=== PATIENT | female | born 1965 | race Caucasian/White ===

== ENCOUNTER → 2017-12-17 15:19 | Outpatient (REF) | payer BC, SELFPAY ==
--- NOTE | 2017-12-17 14:15 | ENDO_PTH ---
PATIENT: Ciara Sexton LOC: [facility] U#:[id number] AGE/SX: 59/F ROOM: RE12/17/[address]: Tremayne Eckert : 1965 BED: DIS: SPEC #: [id number] RECD: 12/17/17 17:44 STATUS: CORINE REQ #: [id number] YUAN: 12/17/17 14:[address]: Tremayne Eckert DEPT: Surgical Specimen RECD BY: Paola Emerson ENTERED: 12/17/17 17:44 SP TYPE: Endo OTHR DR: Joycelyn Garcia Sabine J Tissues: 1 - ENDOCERVICAL BX/CURRETTE Procedures: GROSS AND MICRO LEVEL 4 Comments: [id number]
--- NOTE | 2017-12-17 14:15 | PAPFT_PTH ---
PATIENT: Ciara Sexton LOC: [facility] U#:[id number] AGE/SX: 59/F ROOM: RE12/17/[address]: Tremayne Eckert : 1965 BED: DIS: SPEC #: [id number] RECD: 12/17/17 17:54 STATUS: CORINE REDelroy #: [id number] YUAN: 12/17/17 14:[address]: Tremayne Eckert DEPT: [facility] Cytology RECD BY: Paola Emerson ENTERED: 12/17/17 17:55 SP TYPE: PAPFT OTHR DR: Joycelyn Garcia Sabine J Tissues: 1 - CX/ENDOCX FOR PAP SMEARS Procedures: HPV DNA PROBE Comments: (HPV ONLY)
== END ==
LOC: LBN 15:19
PROVIDERS: PCP Nurse Practitioner Family; Visit Provider Obstetrics & Gynecology
DX: N85.8 Other specified noninflammatory disorders of uterus (principal); R87.610 Atypical squamous cells of undetermined significance on cytologic smear of cervix (ASC-US); Z11.51 Encounter for screening for human papillomavirus (HPV)
CPT/HCPCS: 88305; 87624

== ENCOUNTER 2018-05-20 08:39 | Outpatient (REF) | payer BC, SELFPAY ==
[2018-05-20 13:37] LABS: ALT 19 U/L (12-78); AST 12 U/L (15-37); Albumin 3.3 g/dL (3.4-5.0); Alkaline Phosphatase 62 U/L (46-116); Anion Gap 10.4 mmol/L (3-11); BUN 18 mg/dL (7-18); Bilirubin, Total 0.3 mg/dL (0.2-1.0); CO2 23.6 mmol/L (21.0-32.0); CREATININE 0.92 mg/dL (0.55-1.02); Calcium 8.3 mg/dL (8.5-10.1); Chloride 107 mmol/L (98-107); Cholesterol 157 mg/dL (50-200); Glucose 91 mg/dL (70-100); HDL Cholesterol 58 mg/dL (40-60); LDL CHOLESTEROL 89 mg/dL (<100); Potassium 4.4 mmol/L (3.5-5.1); Sodium 141 mmol/L (136-145); Triglyceride 53 mg/dL (30-150)
[2018-05-20 13:59] LABS: FREE T4 0.63 ng/dL (0.76-1.46)
== END 2018-05-20 08:59 ==
LOC: NCHCN 08:39
PROVIDERS: PCP Nurse Practitioner Family; Visit Provider Nurse Practitioner Family
DX: E03.9 Hypothyroidism, unspecified (principal); Z13.220 Encounter for screening for lipoid disorders; Z13.228 Encounter for screening for other metabolic disorders
CPT/HCPCS: 80053; 80061; 83721; 84439; 84443

== ENCOUNTER 2018-06-11 00:06 | Outpatient (CLI) | payer BC, SELFPAY ==
--- NOTE | 2018-06-11 09:00 | DI.MAMMO_ITS ---
SYMPTOM/DIAGNOSIS: SCREENING, PREVENTATIVE CARE, Z00.00 MAMMOGRAMS: Mammograms were interpreted according to the usual protocol including computer analysis with CAD system, tomosynthesis and C view imaging. Comparison is made with prior examinations. Breast density, Category C. No suspicious masses or microcalcifications are seen. There is no definite evidence of malignancy. IMPRESSION: Negative mammogram. Routine screening is recommended. Category 1. MQSA ASSESSMENT OF FINDINGS: Negative. Category 1. Patient will receive a letter notifying them of these results. Bi-RADS category C. The breasts are heterogeneously dense, which may obscure small masses.
== END 2018-06-11 00:26 ==
PROVIDERS: PCP Nurse Practitioner Family; Visit Provider Nurse Practitioner Family
DX: Z00.00 Encounter for general adult medical examination without abnormal findings (principal); Z12.31 Encounter for screening mammogram for malignant neoplasm of breast
CPT/HCPCS: 77063; 77067

== ENCOUNTER 2018-07-29 09:11 | Outpatient (REF) | payer BC, SELFPAY ==
[2018-07-29 13:39] LABS: TSH (W/Ref FT4) 0.09 uIU/mL (0.358-3.74)
[2018-07-29 13:56] LABS: FREE T4 0.83 ng/dL (0.76-1.46)
== END 2018-07-29 09:31 ==
LOC: NCHCN 09:11
PROVIDERS: PCP Nurse Practitioner Family; Visit Provider Nurse Practitioner Family
DX: E03.9 Hypothyroidism, unspecified (principal); M62.838 Other muscle spasm
CPT/HCPCS: 83735; 84439; 84443

== ENCOUNTER 2018-08-30 10:08 | Outpatient (REF) | payer BC, SELFPAY ==
--- NOTE | 2018-08-30 09:15 | PAPFT_PTH ---
PATIENT: Ciara Sexton LOC: [facility] U#:[id number] AGE/SX: 52/F ROOM: RE08/30/[address]: Nuha Cummings : 1965 BED: DIS: 08/30/2018 SPEC #: [id number] RECD: 08/30/18 12:56 STATUS: CORINE REDelroy #: [id number] YUAN: 08/30/18 09:[address]: Nuha Cummings DEPT: [facility] Cytology RECD BY: Paola Emerson Tissues: 1 - CX/ENDOCX FOR PAP SMEARS Procedures: PAP THIN PREP/UVM Screening HPV DNA PROBE Comments: [id number]
== END 2018-08-30 10:28 ==
LOC: NCHCN 10:08
PROVIDERS: PCP Nurse Practitioner Family; Visit Provider Nurse Practitioner Family
DX: Z00.00 Encounter for general adult medical examination without abnormal findings (principal); Z12.4 Encounter for screening for malignant neoplasm of cervix; Z11.51 Encounter for screening for human papillomavirus (HPV)
CPT/HCPCS: 88142; 87624

== ENCOUNTER 2019-06-16 09:59 | Day surgery (SDC) | payer BC, SELFPAY ==
--- NOTE | 2019-06-16 06:59 | W.COLOREPORT ---
Date of service: 06/16/19 Time of Service: 10:47 Colonoscopy Report Date of procedure: 06/16/19 Pre-op diagnosis general: Colon Cancer Screening Post-op diagnosis procedure note: other (Transverse polyps, internal and external hemorrhoids) Procedure: Colonoscopy with polypectomy by cold forceps Surgeon: Marlene Puente Anesthesia proc note operative: other (General/ ASA /) Complications: None Disposition: same day Indications: The patient is here for Colonoscopy pre-op. He has no family history of colon cancer. He has not had any bowel habit changes. -Discussed colonoscopy bowel prep as well as the procedure. Discussed possible complications of the procedure to include bleeding, pain, perforation, missed small lesion/polyp, sore throat, aspiration and adverse reaction to the medications. Questions were answered to patient?s satisfaction. No guarantees were implied or given. Prep: Miralax/Dulcolax Procedure Start Time: 47 Procedure End Time: 11:13 Retraction Time: 17 minutes Findings: Adenomatous Transverse colon polyp Internal and external hemorrhoids Procedure Description: After informed consent was obtained the patient was taken to the procedure room and placed in a left decubitous position. Monitors were applied and a time out was done. The patients name, date of , procedure, allergies to medications and metal in their body was reviewed. The patient was then sedated. Once sedated and comfortable a rectal exam was done. External exam revealed small external hemorrhoids. Internal exam revealed a normal sphincter tone and no palpable masses. The scope was then introduced and retro-flexed. Grade 1 and 2 internal hemorrhoids were identified. The scope was then advanced to the cecum without difficulty. The TI and appendiceal orifice were identified. The prep was good. The scope was then slowly retracted over 17 minutes back into the rectum. Polyps were removed with cold forceps in the transverse colon. There were no diverticuli. The scope was removed and the patient was woken up and taken back to Same day surgery in stable condition. The patient tolerated the procedure well and there were no immediate complications. Follow up: The patient should follow up in 3-5 years unless they develop changes in bowel habits or other new gastrointestinal complaints.
--- NOTE | 2019-06-16 07:00 | PDOC.DSDIS_ITS ---
Discharge Plan Disposition Patient Disposition: HOME Condition: Good Discharge Details Reason For Visit: SCREENING Attending Provider: Marlene Puente Primary Care Provider: Nuha Cummings Home Meds and New Rx's Prescriptions: Continued [place] Thyroid 180 mg tablet 180 mg PO DAILY RF: 0 norethindrone ac-eth estradiol [Microgestin 05/12 (21)] 1-20 mg-mcg tablet 1 tab PO DAILY RF: 0 Discontinued polyethylene glycol 3350 17 gram/dose powder 238 g PO ONCE Qty: 238 RF: 0 bisacodyl [Dulcolax (bisacodyl)] 5 mg tablet,delayed release (DR/EC) 5 mg PO ONCE Qty: 4 RF: 0 Discharge Instructions Instructions: Hemorrhoids (DC), Colorectal Polyps (DC) Additional Instructions: Findings: Internal and external hemorrhoids Colorectal polyp Follow up: 3-5 years Please call if you develop: fevers >101.5 Nausea or Vomiting Abdominal pain that is not transient DAY SURGERY UNIT POST ENDOSCOPY INSTRUCTIONS 1. Because there will be medication in your system for the next 24 hours, you may feel a little sleepy. Your coordination will be affected. Therefore: a. Do not drive or operate dangerous equipment for 24 hours. b. Do not drink alcohol beverages for 24 hours (not even beer). c. Plan to go home and rest for the day. 2. Generally there are no restrictions on your activity after a day or so has gone by, but you may feel a bit fatigued for a few days. 3 After you arrive home you may have a light meal and return to a normal diet as you can tolerate it without feeling sick to your stomach. 4. After surgery, you may feel pain or discomfort. This should be only transient, but if it persists please contact your doctor. 5. If there are any questions regarding the findings of your procedure, please feel free to contact your doctor. 6. If you are unable to contact your doctor with a problem, contact the hospital at [phone]. 7. Continue all your regular medications unless directed otherwise. I understand the above instructions and have no questions. Signature of Patient or Responsible Adult Escort Date/Time Name of Responsible Adult Escort Signature of Nurse Date/Time Activity:: Activity as Tolerated Diet:: high Fiber diet Discharge Orders Discharge Orders: Discharge Order (Routine); Ordered 06/16/19 Ordered By: Marlene Puente
[2019-06-16 10:10] VITALS: BP 119/69; PULSE 71; RESP 17; TEMP 36.5; O2SAT 97
[2019-06-16] MEDS: Lactated Ringers 1,000 ML 80 ML IV (10:39)
--- NOTE | 2019-06-16 11:05 | BOWEL_PTH ---
PATIENT: Ciara Sexton LOC: [facility] U#:[id number] AGE/SX: 53/F ROOM: RE06/16/[address]: Marlene Puente MD : 1965 BED: DIS: 06/16/2019 SPEC #: [id number] RECD: 06/16/19 12:59 STATUS: CORINE REQ #: [id number] YUAN: 06/16/19 11:[address]: Marlene Puente DEPT: Surgical Specimen RECD BY: Paola Emerson ENTERED: 06/16/19 12:59 SP TYPE: Bowel OTHR DR: Nuha Cummings Tissues: 1 - BIOPSY BOWEL Procedures: GROSS AND MICRO LEVEL 4 Comments: [id number]
[2019-06-16 11:50] VITALS: BP 109/70; PULSE 72; RESP 16; TEMP 36.7; O2SAT 100
== END 2019-06-16 12:10 | disposition home or self-care (01) ==
LOC: SUR 10:00
PROVIDERS: PCP Nurse Practitioner Family; Visit Provider Surgery
PROC: 0DJD8ZZ Inspection of Lower Intestinal Tract, Via Natural or Artificial Opening Endoscopic (ICD-10-PCS; CPT 45378; principal; 2019-06-16 11:15)
DX: Z12.11 Encounter for screening for malignant neoplasm of colon (principal); D12.3 Benign neoplasm of transverse colon
CPT/HCPCS: 45380; 81025; 88305

== ENCOUNTER 2019-06-17 13:05 | Outpatient (REF) | payer BC, SELFPAY ==
--- NOTE | 2019-06-17 11:45 | PAPFT_PTH ---
PATIENT: Ciara Sexton LOC: [facility] U#:[id number] AGE/SX: 53/F ROOM: RE06/17/[address]: Nuha Cummings : 1965 BED: DIS: 06/17/2019 SPEC #: [id number] RECD: 06/17/19 18:10 STATUS: CORINE REDelroy #: [id number] YUAN: 06/17/19 11:[address]: Nuha Cummings DEPT: [facility] Cytology RECD BY: Paola Emerson Tissues: 1 - CX/ENDOCX FOR PAP SMEARS Procedures: PAP THIN PREP/UVM Screening Comments: [id number]
[2019-06-17 19:11] LABS: TSH (W/Ref FT4) 0.01 uIU/mL (0.36-3.74)
[2019-06-17 19:28] LABS: FREE T4 1.15 ng/dL (0.76-1.46)
== END 2019-06-17 13:25 ==
LOC: NCHCN 13:05
PROVIDERS: PCP Nurse Practitioner Family; Visit Provider Nurse Practitioner Family
DX: Z00.00 Encounter for general adult medical examination without abnormal findings (principal); Z12.4 Encounter for screening for malignant neoplasm of cervix; Z11.51 Encounter for screening for human papillomavirus (HPV); E03.9 Hypothyroidism, unspecified
CPT/HCPCS: 88142; 84439; 84443

== ENCOUNTER 2020-02-06 13:44 | Outpatient (REF) | payer BC, SELFPAY ==
--- NOTE | 2020-02-06 10:45 | PAPFT_PTH ---
PATIENT: Ciara Sexton LOC: [facility] U#:[id number] AGE/SX: 54/F ROOM: RE02/06/[address]: Jayla Pedraza : 1965 BED: DIS: 02/06/2020 SPEC #: [id number] RECD: 02/09/20 12:56 STATUS: CORINE REDelroy #: [id number] YUAN: 02/06/20 10:[address]: Jayla Pedraza DEPT: [facility] Cytology RECD BY: Paola Emerson ENTERED: 02/09/20 12:57 SP TYPE: PAPFT OTHR DR: Nuha Cummings Tissues: 1 - CX/ENDOCX FOR PAP SMEARS Procedures: PAP THIN PREP/UVM Screening HPV DNA PROBE Comments: [id number] (CHLAMYDIA/GC) (HPV 16/HPV 18/45)
[2020-02-09 11:39] LABS: Hepatitis C Ab w Rflx HCV PCR Negative (Negative)
[2020-02-09 11:57] LABS: HIV-1/2 Ag & Ab Screen Negative (Negative)
[2020-02-09 12:07] LABS: HBs Antibody, Quant 161.5 mIU/mL (See Note); Hepatitis B Surface Ab Positive (See Note)
[2020-02-09 12:15] LABS: Hepatitis B Surface Ag Negative (Negative)
[2020-02-10 10:04] LABS: Syphilis Serology (RPR) Negative (Negative)
[2020-02-10 11:32] LABS: HSV 1 DNA Result Negative (Negative); HSV 2 DNA Result Negative (Negative)
[2020-02-12 15:38] LABS: Chlamydia Result Negative (Negative); GC Result Negative (Negative)
== END 2020-02-06 14:04 ==
LOC: NCHCN 13:44
PROVIDERS: PCP Nurse Practitioner Family; Visit Provider Nurse Practitioner Family
DX: Z72.51 High risk heterosexual behavior (principal); Z11.3 Encounter for screening for infections with a predominantly sexual mode of transmission; Z11.59 Encounter for screening for other viral diseases; Z11.4 Encounter for screening for human immunodeficiency virus [HIV]; A60.00 Herpesviral infection of urogenital system, unspecified; R87.810 Cervical high risk human papillomavirus (HPV) DNA test positive
CPT/HCPCS: 86706; 86803; 87340; 87389; 87491; 87529; 87591; 88142; 86592; 87624

== ENCOUNTER 2020-06-22 16:17 | Outpatient (REF) | payer BC, SELFPAY ==
[2020-06-22 19:41] LABS: BUN 21 mg/dL (7-18); CREATININE 0.7 mg/dL (0.55-1.02); Calcium 8.8 mg/dL (8.5-10.1); Calculated LDL 85 mg/dL (<100); Chloride 107 mmol/L (98-107); Cholesterol 167 mg/dL (<200); Glucose 94 mg/dL (74-106); HDL Cholesterol 66 mg/dL (40-60); Potassium 4.1 mmol/L (3.5-5.1); Sodium 143 mmol/L (136-145); Triglyceride 81 mg/dL (<150)
[2020-06-22 19:45] LABS: TSH (W/Ref FT4) < 0.01 uIU/mL (0.36-3.74)
[2020-06-22 20:00] LABS: FREE T4 0.98 ng/dL (0.76-1.46)
[2020-06-23 17:50] LABS: FSH 66.6 mIU/mL (See Note); LH 54.8 mIU/mL (See Note)
[2020-06-25 10:50] LABS: HSV Type 1 Ab, IgG Positive (Negative); HSV Type 2 Ab, IgG Positive (Negative)
== END 2020-06-22 16:18 | disposition home or self-care (01) ==
LOC: NCHCN 16:17
PROVIDERS: PCP Nurse Practitioner Family; Visit Provider Nurse Practitioner Family
DX: E03.9 Hypothyroidism, unspecified (principal); E83.51 Hypocalcemia; N95.1 Menopausal and female climacteric states; A60.00 Herpesviral infection of urogenital system, unspecified
CPT/HCPCS: 80048; 80061; 83001; 83002; 84439; 84443; 86695; 86696

== ENCOUNTER 2020-09-06 02:15 | Outpatient (CLI) | payer BC, SELFPAY ==
--- NOTE | 2020-09-06 | DI.MAMMO_ITS ---
Exam(s) MAMMO SCREENING EXAM: MAMMO SCREENING CLINICAL HISTORY: SCREENING, Z12.39. TECHNIQUE: Bilateral full field digital CC and MLO mammographic images were obtained with 3D tomosyn thesis and utilizing computer aided detection (CAD). COMPARISON: Prior mammograms dating back to 2011, the most recent being May 2008. FINDINGS: Fibroglandular tissue is again noted be moderately dense, this decreasing the sensitivity mammogram f or finding hidden underlying lesions. In the left breast on 3D cc imaging there are 2 adjacent well-defined noncalcified nodules, measuring approximately 7 x 6 millimeters and 5 by 4 millimeters, these located 8 centimetres from the nipple, lateral of center, approximately 3 o'clock position. In the opposite-right breast on 3D imaging there is subtle suggestion of nodular densities also noted , located approximately 3 cm in from the nipple measuring approximately 1.2 x 1.0 cm. Also suggestio n of more posteriorly located nodules in the right breast which are approximately 10 cm in from the n ipple.. In the right breast on the 3D MLO view there is a round nodule measuring 7 x 7 millimeters l ocated 8 cm in from the nipple in the upper outer quadrant. Also another well-defined oval noncalcif ied nodule 5 cm in from the nipple measuring approximately 6 x 5 millimeters. Also other right breas t nodules located more inferiorly. There is no significant architectural distortion nor skin thickening-retraction. No malignant-appearing microcalcification groups in either breast IMPRESSION: Moderately dense fibroglandular tissue. Bilateral breast nodules as described above. Bilateral aniceto st ultrasound is recommended BI-RADS Category 0 - Assessment Incomplete: Need additional imaging evaluation Breast Density - Category C - Heterogeneously dense Breast density Category C or D implies that the patient has dense breast tissue. Dense breast tissue can make it harder to find cancer on a mammogram. Dense breast tissue is also associated with an incr eased risk of breast cancer. This information about the result of the mammogram report was provided to the patient to raise their awareness. Use this report when you speak with the patient about their risks for breast cancer, which includes their family history. At that time, you may recommend additional screening tests (Ultrasoun d or MRI) as these tests may add significant information. A negative radiographic report should not delay biopsy if a dominant or clinically suspicious mass is present. Up to ten percent of cancers are not identified on mammography. A negative report may reinforce clinical impression. Adenosis and dense breasts may obscure an underlying neoplasm. False positive reports average 6 to 10%. Patient will receive a letter notifying them of these results.
== END 2020-09-06 02:35 ==
PROVIDERS: PCP Nurse Practitioner Family; Visit Provider Nurse Practitioner Family
DX: Z12.31 Encounter for screening mammogram for malignant neoplasm of breast (principal); R92.8 Other abnormal and inconclusive findings on diagnostic imaging of breast
CPT/HCPCS: 77063; 77067

== ENCOUNTER 2021-04-13 19:40 | Outpatient (REF) | payer BC, SELFPAY ==
[2021-04-13 20:06] LABS: ALT 49 U/L (14-59); AST 19 U/L (15-37); Albumin 4.3 g/dL (3.4-5.0); Alkaline Phosphatase 105 U/L (46-116); Anion Gap 7.3 mmol/L (3-11); BUN 20 mg/dL (7-18); Bilirubin, Total 0.3 mg/dL (0.2-1.0); CO2 27.7 mmol/L (21.0-32.0); CREATININE 0.7 mg/dL (0.55-1.02); Calcium 9.4 mg/dL (8.5-10.1); Chloride 104 mmol/L (98-107); Glucose 98 mg/dL (74-106); Potassium 4.4 mmol/L (3.5-5.1); Sodium 139 mmol/L (136-145); TSH (W/Ref FT4) < 0.01 uIU/mL (0.36-3.74); Total Protein 8.1 g/dL (6.4-8.2)
[2021-04-13 20:22] LABS: FREE T4 1.07 ng/dL (0.76-1.46)
== END 2021-04-13 19:41 | disposition home or self-care (01) ==
LOC: NCHCN 19:40
PROVIDERS: PCP Nurse Practitioner Family; Visit Provider Nurse Practitioner
DX: E03.9 Hypothyroidism, unspecified (principal); R63.5 Abnormal weight gain
CPT/HCPCS: 80053; 84439; 84443

== ENCOUNTER 2021-06-10 18:00 | Outpatient (REF) | payer BC, SELFPAY ==
[2021-06-10 15:45] LABS: TSH (W/Ref FT4) 0.01 uIU/mL (0.36-3.74)
[2021-06-10 16:03] LABS: FREE T4 0.88 ng/dL (0.76-1.46)
== END 2021-06-10 18:01 | disposition home or self-care (01) ==
LOC: NCHCN 18:00
PROVIDERS: PCP Nurse Practitioner Family; Visit Provider Nurse Practitioner Family
DX: E03.9 Hypothyroidism, unspecified (principal)
CPT/HCPCS: 84439; 84443

== ENCOUNTER 2021-10-14 12:05 | Outpatient (REF) | payer BC, SELFPAY ==
--- NOTE | 2021-10-14 10:30 | PAPFT_PTH ---
PATIENT: Ciara Sexton LOC: [facility]#:[id number] AGE/SX: 56/F ROOM: RE10/14/[address]: Nuha Cummings : 1965 BED: DIS: 10/14/2021 SPEC #: [id number] RECD: 10/14/21 13:03 STATUS: CORINE REDelroy #: [id number] YUAN: 10/14/21 10:[address]: Nuha Cummings DEPT: [facility] Cytology RECD BY: Paola Emerson Tissues: 1 - CX/ENDOCX FOR PAP SMEARS Procedures: PAP THIN PREP/UVM Screening HPV DNA PROBE Comments: [id number] (HPV 16 & 18/45)
== END 2021-10-14 12:06 | disposition home or self-care (01) ==
LOC: NCHCN 12:05
PROVIDERS: PCP Nurse Practitioner Family; Visit Provider Nurse Practitioner Family
DX: R87.810 Cervical high risk human papillomavirus (HPV) DNA test positive (principal); Z11.51 Encounter for screening for human papillomavirus (HPV); Z12.4 Encounter for screening for malignant neoplasm of cervix
CPT/HCPCS: 88142; 87624

== ENCOUNTER → 2021-10-18 02:00 | Outpatient (CLI) | payer BC, SELFPAY ==
--- NOTE | 2021-10-18 | DI.MAMMO_ITS ---
Exam(s) MAMMO SCREENING EXAM: MAMMO SCREENING CLINICAL HISTORY: SCREENING, Z12.39 TECHNIQUE: Bilateral full field digital CC and MLO mammographic images were obtained with 3D tomosyn thesis and utilizing computer aided detection (CAD). COMPARISON: Available for comparison. FINDINGS: Masses/Architectural Distortion: There again seen well-circumscribed nodules in the medial right aniceto st. No suspicious masses are seen. No areas of architectural distortion are seen. Microcalcifications: No suspicious pleomorphic-type are seen. Skin Thickening/Nipple Retraction: None. IMPRESSION: 1. Multiple well-circumscribed right breast cysts. They appear slightly increased in size compared t o the examination from 09/06/2020. There is a known solid nodule at the 4 o'clock position of the righ t breast seen on ultrasound from 12/24/2020. A six-month follow-up ultrasound was requested at that [facility]. 2. A right breast ultrasound is recommended for re-evaluation of the cystic and solid lesions. BI-RADS Category 0 - Assessment Incomplete: Need additional imaging evaluation Breast Density - Category C - Heterogeneously dense Breast density category C or D implies that the patient has dense breast tissue. Dense breast tissue is very common and is not abnormal but dense breast tissue can make it harder to find cancer on a ma mmogram. Also, dense breast tissue may increase their breast cancer risk. This information about the result of the mammogram report was provided to the patient to raise their awareness. Use this report when you speak with the patient about their risks for breast cancer, which includes their family hist ory. At that time, you may recommend for more screening tests (Ultrasound or MRI) as they might be us eful based on their risk. A negative radiographic report should not delay biopsy if a dominant or clinically suspicious mass is present. Up to ten percent of cancers are not identified on mammography. A negative report may reinforce clinical impression. Adenosis and dense breasts may obscure an underlying neoplasm. False positive reports average 6 to 10%. Patient will receive a letter notifying them of these results.
== END ==
PROVIDERS: PCP Nurse Practitioner Family; Visit Provider Nurse Practitioner Family
DX: Z12.31 Encounter for screening mammogram for malignant neoplasm of breast (principal); R92.8 Other abnormal and inconclusive findings on diagnostic imaging of breast; N60.11 Diffuse cystic mastopathy of right breast
CPT/HCPCS: 77063; 77067

== ENCOUNTER 2022-04-27 15:42 | Outpatient (REF) | payer BC, SELFPAY ==
[2022-04-27 16:11] LABS: TSH (W/Ref FT4) < 0.01 uIU/mL (0.36-3.74)
[2022-04-27 17:14] LABS: FREE T4 1.15 ng/dL (0.76-1.46)
== END 2022-04-27 15:43 | disposition home or self-care (01) ==
LOC: NCHCN 15:42
PROVIDERS: PCP Nurse Practitioner Family; Visit Provider Nurse Practitioner Family
DX: B00.9 Herpesviral infection, unspecified (principal); G54.0 Brachial plexus disorders; R63.5 Abnormal weight gain; G47.33 Obstructive sleep apnea (adult) (pediatric); E03.9 Hypothyroidism, unspecified
CPT/HCPCS: 84439; 84443

== ENCOUNTER 2022-10-19 01:57 | Outpatient (CLI) | payer BC, SELFPAY ==
--- NOTE | 2022-10-19 11:55 | DI.MAMMO_ITS ---
Exam(s) US BREAST RT COMPLETE MG MAMMO SCREENING EXAM: MG MAMMO SCREENING CLINICAL HISTORY: SCREENING, Z12.39. COMPARISON: MG Screening Bilat Mammo from 05/24/2017 MG MG mammo screening from 06/11/2018 MG MG MAMMO SCREENING from 09/06/2020 US US BREAST RT COMPLETE from 09/16/2020 US US BREAST LT COMPLETE from 09/16/2020 MG MG MAMMO SCREENING from 10/18/2021 US US BREAST RT COMPLETE from 11/01/2021 US US BREAST RT COMPLETE from 05/02/2022 US US BREAST RT COMPLETE from 10/19/2022 TECHNIQUE: Craniocaudal and mediolateral oblique Full Field Digital Mammography views of both breast s with Computer Aided Diagnosis followed by Tomosynthesis and right breast ultrasound. FINDINGS: Mammography/Tomosynthesis: Masses: Stable areas of circumscribed nodularity again noted in the inferomedial subareolar region. Stable smaller nodule seen in the central, lateral right breast. No suspicious masses in either aniceto st. No new nodules in either breast. Architectural Distortion: None seen. Microcalcifications: No suspicious pleomorphic-type are seen. Skin Thickening/Nipple Retraction: None. Right breast US: Echotexture: Normal appearance of the glandular tissue. Shadowing: No suspicious foci. Stable circumscribed isoechoic nodule in the 2 o'clock position. Two adjacent circumscribed isoechoi c nodules are noted in the inferior right breast, near 4 o'clock. 3 millimeter cyst 8 o'clock positi on. 5 millimeters cyst 8 o'clock position 6 cm from the nipple. Lymph node again noted 8 o'clock po sition 4 cm from the nipple. No suspicious axillary lymph nodes. Ductal dilation: None. IMPRESSION: 1. No evidence of malignancy is noted. 2. Unless there is more urgent need, follow-up screening mammography is recommended, as per [employer] guidelines. BI-RADS Category 2 - Benign Findings Breast Density - Category B - Scattered areas of fibroglandular density A negative radiographic report should not delay biopsy if a dominant or clinically suspicious mass is present. Up to ten percent of cancers are not identified on mammography. A negative report may reinforce clinical impression. Adenosis and dense breasts may obscure an underlying neoplasm. False positive reports average 6 to 10%. Patient will receive a letter notifying them of these results.
== END 2022-10-19 02:17 ==
LOC: DI 01:57
PROVIDERS: PCP Nurse Practitioner Family; Visit Provider Nurse Practitioner Family
DX: Z12.31 Encounter for screening mammogram for malignant neoplasm of breast (principal); N63.15 Unspecified lump in the right breast, overlapping quadrants
CPT/HCPCS: 76642; 77063; 77067

== ENCOUNTER 2022-10-23 20:39 | Outpatient (REF) | payer BC, SELFPAY ==
--- NOTE | 2022-10-23 16:00 | PAPFT_PTH ---
PATIENT: Ciara Sexton LOC: [facility]#:[id number] AGE/SX: 57/F ROOM: RE10/23/[address]: ABR OWENS NP : 1965 BED: DIS: 10/23/2022 SPEC #: [id number] RECD: 10/26/22 13:40 STATUS: CORINE QUIROGA #: [id number] YUAN: 10/23/22 16:[address]: BAR OWENS DEPT: [facility] Cytology RECD BY: Paola Emerson ENTERED: 10/26/22 13:40 SP TYPE: PAPFT ALTHEA DR: Nuha Cummings Tissues: 1 - CX/ENDOCX FOR PAP SMEARS Procedures: PAP THIN PREP/UVM Screening HPV DNA PROBE Comments: [id number]
[2022-10-23 22:54] LABS: Anion Gap 6.4 mmol/L (3-11); BUN 15 mg/dL (7-18); CO2 29.6 mmol/L (21.0-32.0); CREATININE 0.8 mg/dL (0.55-1.02); Calcium 9.7 mg/dL (8.5-10.1); Chloride 107 mmol/L (98-107); Estimated GFR 86.42 (mL/min/1.73m2); Glucose 96 mg/dL (74-106); Potassium 4.9 mmol/L (3.5-5.1); Sodium 143 mmol/L (136-145)
[2022-10-23 23:02] LABS: TSH (W/Ref FT4) < 0.01 uIU/mL (0.36-3.74)
[2022-10-23 23:18] LABS: FREE T4 1.17 ng/dL (0.76-1.46)
== END 2022-10-23 20:40 | disposition home or self-care (01) ==
LOC: NCHCN 20:39
PROVIDERS: PCP Nurse Practitioner Family; Visit Provider Nurse Practitioner Family
DX: C81.18 Nodular sclerosis Hodgkin lymphoma, lymph nodes of multiple sites (principal); D89.813 Graft-versus-host disease, unspecified; R74.01 Elevation of levels of liver transaminase levels; Z94.81 Bone marrow transplant status
CPT/HCPCS: 80048; 88142; 84439; 84443; 87624

== ENCOUNTER 2022-12-28 13:29 | Outpatient (REF) | payer BC, SELFPAY ==
[2022-12-28 16:05] LABS: TSH (W/Ref FT4) 0.02 uIU/mL (0.36-3.74)
[2022-12-28 16:35] LABS: FREE T4 0.87 ng/dL (0.76-1.46)
== END 2022-12-28 13:30 | disposition home or self-care (01) ==
LOC: NCHCN 13:29
PROVIDERS: PCP Nurse Practitioner Family; Visit Provider Nurse Practitioner Family
DX: E03.9 Hypothyroidism, unspecified (principal)
CPT/HCPCS: 84439; 84443

== ENCOUNTER 2023-04-25 11:34 | Outpatient (REF) | payer BC, SELFPAY | END 2023-04-25 11:35 | disposition home or self-care (01) | LOC: LBN 11:34 | PROVIDERS: PCP Nurse Practitioner Family; Visit Provider Physician Assistant Medical | DX: J02.9 Acute pharyngitis, unspecified (principal) | CPT/HCPCS: 87070 ==

== ENCOUNTER → 2023-05-31 13:29 | Outpatient (CLI) | payer BC, SELFPAY ==
--- NOTE | 2023-05-31 | DI.RAD_ITS ---
Exam(s) XR CHEST 2V PA LATERAL EXAM: XR CHEST 2V PA LATERAL CLINICAL HISTORY: ACUTE UPPER RESPIRATORY INFECTION, J06.9 TECHNIQUE: 2D digital imaging was performed. COMPARISON: No exams were available for comparison FINDINGS: HEART: Normal size. Aorta: Not dilated. PULMONARY VASCULATURE: Normal. LUNGS: Clear. PLEURAL SPACE: No pleural effusion or pneumothorax. BONE:Unremarkable for age. Soft tissues: Unremarkable. IMPRESSION: No acute abnormality. DATA REPOSITORY: RADIATION DOSE DELIVERED:
== END ==
PROVIDERS: PCP Nurse Practitioner Family; Visit Provider Physician Assistant Medical
DX: J06.9 Acute upper respiratory infection, unspecified (principal)
CPT/HCPCS: 71046

== ENCOUNTER 2023-09-24 18:39 | Outpatient (REF) | payer BC, SELFPAY ==
[2023-09-24 18:57] LABS: FREE T4 0.69 ng/dL (0.76-1.46)
== END 2023-09-24 18:40 | disposition home or self-care (01) ==
LOC: NCHCN 18:39
PROVIDERS: PCP Nurse Practitioner Family; Visit Provider Nurse Practitioner Family
DX: E03.9 Hypothyroidism, unspecified (principal)
CPT/HCPCS: 84439; 84443

== ENCOUNTER 2023-11-19 12:01 | Outpatient (REF) | payer OTHER, SELFPAY ==
[2023-11-19 16:37] LABS: FREE T4 1.34 ng/dL (0.76-1.46); TSH 0.17 uIU/Ml (0.36-3.74)
== END 2023-11-19 12:02 | disposition home or self-care (01) ==
LOC: NCHCN 12:01
PROVIDERS: PCP Nurse Practitioner Family; Visit Provider Nurse Practitioner Family
DX: E03.9 Hypothyroidism, unspecified (principal)
CPT/HCPCS: 84439; 84443

== ENCOUNTER 2024-04-11 12:37 | Outpatient (CLI) | payer OTHER, SELFPAY ==
[2024-04-11 10:26] LABS: Hemoglobin A1C 5.4 % (<5.7)
[2024-04-11 10:42] LABS: ALT 30 U/L (14-59); AST 22 U/L (15-37); Alkaline Phosphatase 86 U/L (46-116); Anion Gap 7.6 mmol/L (3-11); BUN 17 mg/dL (7-18); Bilirubin, Total 0.34 mg/dL (0.2-1.0); CO2 29.4 mmol/L (21.0-32.0); CREATININE 0.9 mg/dL (0.55-1.02); Calcium 9.7 mg/dL (8.5-10.1); Calculated LDL 112 mg/dL (<100); Chloride 106 mmol/L (98-107); Cholesterol 203 mg/dL (<200); Estimated GFR 74.57 (mL/min/1.73m2); Glucose 99 mg/dL (74-106); HDL Cholesterol 75 mg/dL (40-60); Potassium 4.6 mmol/L (3.5-5.1); Sodium 143 mmol/L (136-145); TSH 0.51 uIU/mL (0.36-3.74); Total Protein 8.2 g/dL (6.4-8.2); Triglyceride 84 mg/dL (<150)
[2024-04-11 11:07] LABS: FREE T4 1.09 ng/dL (0.76-1.46)
--- OUTSIDE RECORDS SUMMARY | 2024-04-11 12:40 | XMS_ITS | Continuity of Care Document ---
Author Organization [facility] Ambulatory Clinics Address [address] [place] [address] Encounter [facility] FIN NBR [id number] Date(s): 08/26/23 - 08/26/23 [facility] [address] [place] [address]- [place] Encounter Diagnosis Viral URI(Discharge Diagnosis) - 08/26/23 Discharge Disposition: Home or Self Care Attending Physician: Elizabeth Scott PA-C Allergies, Adverse Reactions, Alerts No Known Medication Allergies Assessment and Plan Extracted from: Title:Office Visit Note Author:IDA Ribeiro Date:08/26/23 1.??Viral URI??J06.9 ??Reassuring physical exam, no focal bacterial source of infection on exam. ??Reassurance provided likely viral and should clear with time and supportive care. ??Recommended rest, fluids,??consideration of an tnbd-xqp-mscdljs decongestant such as Sudafed as well as a nasal spray.?? Continue on daily antihistamine. ??Recheck for any fever or??worsening symptoms Functional Status 08/26/23 Other exposure to Infectious Disease Non e Medications [place] Thyroid 120 mg oral tablet 0 Refill(s) Start Date: 08/26/23 Status: Ordered valACYclovir 500 mg oral tablet 0 Refill(s) Start Date: 08/26/23 Status: Ordered Vital Signs Most recent to oldest [Reference Range]: 1 Temperature Tympanic [36.6-38.1 Deg C] 3 6.3 Deg C *LOW* (08/26/23 1:14 PM) Peripheral Pulse Rate [60-100 bpm] 77 bp m (08/26/23 1:14 PM) Respiratory Rate [12-24 br/min] 17 br/mi n (08/26/23 1:14 PM) Blood Pressure [90-140/60-90 mmHg] 122/7 5mmHg (08/26/23 1:14 PM) Mean Arterial Pressure, Cuff [65-140 mmH g] 91 mmHg (08/26/23 1:14 PM) Physician Outpatient Note * Elizabeth Scott PA-C: PERFORM Event Display: Office Clinic Note Physician Authored Date: [id number] CHANNING LYNCH :1965 Age:57 years Sex:Female Visit Date:08/26/2023 Chief Complaint cough, running nose, left ear pain History of Present Illness This is a 57-year-old female who presents for URI symptoms. ??Patient reports that she started feeling sick with a cough and runny nose last Sunday,??on Sunday she developed a bit of a stomach bugwith vomiting and diarrhea, though symptoms resolved over the course of the day.?? Since then, she has continued with sinus congestion, a cough, and pressure in her left ear. ??She feels like she needs to pop her left ear but she cannot.?? It feels plugged and muffled. ??It is not??particularly painful.?? She has not had any fever, chills, body aches. ??She had COVID-19 in April Physical Exam Vitals & Measurements T:??36.3?C ??(Tympanic)?? HR:??77??(Peripheral)?? RR:??17?? BP:??122/75?? SpO2:??98%?? General: A&O x 3, well-built and hydrated, no acute distress Eyes: PERRLA, no redness or drainage Ears: auditory canals non-tender bilaterally, bilateral TMs translucent and pearly gutierrez Nose: nares moist and patent Mouth: moist mucous membranes without lesions Throat: oropharynx and tonsils without erythema or exudate Neck:??5/5 flexion and extension, supple, no lymphadenopathy Chest: symmetric rise Heart: normal S1S2, no murmurs, rubs, gallops Lungs: equal and symmetric respiratory effort, lungs clear to auscultation without wheezes, rales, rhonchi Assessment/Plan 1.??Viral URI??J06.9 ??Reassuring physical exam, no focal bacterial source of infection on exam. ??Reassurance provided likely viral and should clear with time and supportive care. ??Recommended rest, fluids,??consideration of an mhzf-gwn-fsvofqt decongestant such as Sudafed as well as a nasal spray.?? Continue on daily antihistamine. ??Recheck for any fever or??worsening symptoms Problem List/Past Medical History Ongoing No qualifying data Historical No qualifying data Medications [place] Thyroid 120 mg oral tablet valACYclovir 500 mg oral tablet Allergies No Known Medication Allergies Electronically Signed on 08/26/23 01:28 PM Elizabeth Scott PA-C Patient Care team information Care Team Related Persons Name: MARY MELGAR Address: Home [address] Name: ELISE MELGAR Address: Home [address], [place] [id number] [place] [address] Name: KENAN ESPARZA Address: Home [address] [id number]
--- OUTSIDE RECORDS SUMMARY | 2024-04-11 12:41 | XMS_ITS | Continuity of Care Document ---
Author Organization [place] - 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 Plan of Treatment Reminders Order Date Submit Date Provider Last Modified By Organization Details Last Modified Time Details Appointments Follow Up 30 2024 09:30A Dyllan Chaves Not available Not available Not available Lab TSH + free T4, serum 2023 024 [facility] ([facility]), [address] [place] [address] [place], [address], 04/11/2024 11:50:33 CMP, serum or plasma 2023 024 [facility] ([facility]), [address] [place] [address] [place], [address], 04/11/2024 10:53:20 lipid panel, serum 2023 024 [facility] ([facility]), [address] [place] [address] [place], [address], 04/11/2024 11:50:24 HbA1c (hemoglob in A1c), blood 2023 024 [facility] ([facility]), [address] [place] [address] [place], [address], 04/11/2024 11:50:17 Referral general surgeon referral - Due for routine colonosco py (last screening 06-16-19, 5 year recall). [facility], [address] [place] [address] [address], [place], [address], 04/09/2024 08:05:21 Procedures None recorded. Surgeries None recorded. Imaging None recorded. Medication Orders lisdexamf etamine 20 mg capsule 2023 024 [id number], [address] [facility], [place], [address], 04/08/2024 14:49:11 Patient TargetsNo targets recorded. Patient Instructions Encounter Date Encounter Id Patient Instructions Last Modified By Organization Details Last Modified Time 04/08/2024 [id number] When You Want to Lose Weight: Care Instructions [email or web address] Not available 04/09/2024 07:26:26 Vyvanse prescribed (lisdexamfetamine ) for ADHD. Please let me know in 2-3 weeks after starting how the medication is working; and, what dose to refill at - a) decrease to 10 mg, b) refill at 20 mg, C) increase to 30 mg. If Vyvanse is not covered, lets consider trying Concerta again. We will continue to explore other options such as GLP therapy (Wegovy or Zepbound). Routine screening colonoscopy ordered. Routine labs today. 3 month follow up. Not available 04/08/2024 15:02:28 Reason for Referral General Surgeon Referral for Screening for malignant neoplasm of colon Due for routine colonoscopy (last screening 06-16-19, 5 year recall). Referring Physician: Bar Chaves, Family Medicine, Encounter Date: 04/08/2024 Problems Name Problem SNOMED Code Status Onset Date Resolution Date Notes Provider Name and Address Organization Details Recorded Time Overweig 817037955 Active 2023 NATACHA WOLFE [facility] [address], [place], [address] , [facility] 12/17/202 4 14:20:53 Attentio n deficit hyperact ivity disorder , predomin antly inattent kristen type 58576687 [facility] 4 19:19:04 Hypothyr oidism 16660560 Active [facility] 4 19:20:27 Cholelit hiasis without obstruct ion 79302684 Active 2015 NATACHA WOLFE [address], [place], [address] , [facility] 4 13:07:18 Acute pharyngi tis 519064127 Completed 201605/11/2016 Problem Code: J02.9; Problem Code Type: ICD-10; Not Available [facility] 3 05:14:49 Atypical squamous cells of undeterm ined signific ance on vaginal Papanico laou smear 370053944 Active 2017 Negative HPV testing 10-23-22 , Postive HPV testing 10-14-[address], [place], [address] , [facility]. 4 14:24:32 Acne 31344395 Completed 201809/25/[address], [place], [address] , [facility]. 4 13:07:26 Obstruct kristen sleep apnea syndrome 40087431 Active [address] [facility] 4 19:20:56 Adult health examinat ion Completed 201909/25/2023 NATACHA WOLFE [address], [place], [address] , [facility] 4 13:07:29 Body mass index 30+ - obesity 840920693 Active [address] [facility] 4 19:19:18 History of polyp of colon 814399880 Active 2019 Tubular edenoma on [facility]/16/[facility] 4 19:20:16 High risk heterose xual behavior 34648439951 9101 Completed 201902/07/2020 02/06/20 20 - Comments only - Jayla Palacios STUDY COORDINATOR - Patient agreeabl e to STD testing today, as she recently had unprotec frida sex with a new partner. HIV, Hep B, Hep C, RPR ordered and drawn today. Endocerv ical swab for G+C performe d during pelvic exam. Problem Code: Z72.51; Problem Code Type: ICD-10; Not Available [facility] 3 05:14:50 Herpesvi renetta infectio n 19126783 [facility] 4 19:19:54 Screenin g for malignan t neoplasm of breast Completed 202009/25/2023 NATACHA WOLFE [address], [place], [address] , [facility] 4 13:07:15 Pain of left hip joint 00004859468 9100 Active 2020 [facility] 4 19:21:07 Menopaus e present 226146342 Active 2020 [facility] 4 19:20:45 Human papillom a virus infectio n 173092310 Active 2020 Negative testing 10-24-23 , Postive testing 10-14-21 NATACHA WOLFE [address], [place], [address] , [facility] 4 13:10:49 Breast composit ion 297597222 Active 2020 Not Available [facility] 3 05:14:51 Major depressi on, single episode 07002781 Active [address] [facility] 4 19:20:38 Skin finding 562387581 Completed 202105/23/2021 05/10/19 22 - Comments only - Bar Chaves STUDY COORDINATOR - Vesicula r rash to left aspect of neck. Improvin g. Very suspicio us for shingles . Likely stressed induced. Unlikely related to COVID booster. Would expect full resoluti on in 2-3 weeks. Would consider Zoster vax in the future. Problem Code: R23.8; Problem Code Type: ICD-10; Not Available [facility] 3 05:14:51 Brachial plexus disorder 5721878 Active [address] [facility] 4 19:19:22 Dyspnea 273014416 Active 2021 BAR CHAVES, STUDY COORDINATOR [address], [place], [address] , [facility] 4 13:11:09 History and physical examinat michael, administ rative Completed 202209/03/2023 Problem Code: Z02.89; Problem Code Type: ICD-10; Ulysses keller, [facility] 4 19:19:57 Gynecolo gic examinat michael Completed 201806/10/2021 Problem Code: Z01.419; Problem Code Type: ICD-10; Not Available [facility] 3 05:15:00 Abnormal weight gain 155036763 Completed 202010/29/2022 Problem Code: R63.5; Problem Code Type: ICD-10; Not Available [facility] 3 05:15:02 Non-supp urative otitis media 264872532 Completed 201906/17/2019 Problem Code: H65.92; Problem Code Type: ICD-10; Not Available [facility] 3 05:15:02 Spasm 99832558 Completed 201806/17/2019 Problem Code: M62.838; Problem Code Type: ICD-10; Not Available [facility] 3 05:15:03 Kidney stone 83127937 Completed 200801/25/2016 Not Available [facility] 3 05:15:03 Heart murmur 70734614 Completed 201806/17/2019 Problem Code: R01.1; Problem Code Type: ICD-10; Not Available [facility] 3 05:15:04 Pain of right shoulder joint 46675718994 790927 Completed 201806/17/2019 Problem Code: M25.511; Problem Code Type: ICD-10; Not Available [facility] 3 05:15:05 Hypocalc emia 3280382 Completed 201806/10/2021 Problem Code: E83.51; Problem Code Type: ICD-10; Not Available [facility] 3 05:15:05 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 4 19:19:54 Fatigue 32951108 Completed 201508/16/2018 Problem Code: R53.83; Problem Code Type: ICD-10; Not Available [facility] 3 05:15:07 Screenin g for malignan t neoplasm of colon Completed 201708/16/2018 Problem Code: Z12.11; Problem Code Type: ICD-10; Not Available [facility] 3 05:15:07 Hyperlip idemia screenin g Completed 201808/16/2018 Problem Code: Z13.220; Problem Code Type: ICD-10; Not Available [facility] 3 05:15:07 Low back pain 091352854 Completed 201406/22/2020 Problem Code: M54.5; Problem Code Type: ICD-10; Not Available [facility] 3 05:15:09 Screenin g for disorder Completed 201708/16/2018 Problem Code: Z13.89; Problem Code Type: ICD-10; Not Available [facility] 3 05:15:10 Noninfla mmatory disorder of the vagina 19830798 Completed 201906/22/2020 Problem Code: N89.8; Problem Code Type: ICD-10; Not Available [facility] 3 05:15:11 Venereal disease screenin g Completed 201708/16/2018 Problem Code: Z11.3; Problem Code Type: ICD-10; Not Available [facility] 3 05:15:12 Screenin g for cardiova scular system disease Completed 201808/16/2018 Problem Code: Z13.6; Problem Code Type: ICD-10; Not Available [facility] 3 05:15:12 Low back pain 226966242 Completed 202010/29/2022 Problem Code: M54.5; Problem Code Type: ICD-10; Not Available [facility] 3 05:15:12 Bronchit is 73985992 Completed 202209/03/2023 [facility]lysses [facility] 4 19:19:28 Nasal congesti on 92740799 Completed 202209/03/2023 Ulysses keller [facility] 4 19:20:50 Sore throat 137595222 Completed 202309/03/2023 [facility] 19:21:16 COVID-19 359768943 Completed 202309/03/2023 Ulysses keller, [facility] 19:19:41 Ingrowin g nail 521447693 Active [address], [facility] [address] , [facility] 13:06:57 Onychomy cosis due to dermatop hyte 856034059 Active [address] [facility] 19:21:02 Upper respirat ory infectio n 68372808 Completed 202309/03/[address], [facility] [address] , [facility] 11:25:38 Right thoracic outlet syndrome 97909915261 672198 Active [address], [facility] [address] , [facility] 4 13:50:19 Upper respirat ory infectio n 51785766 Active [address], [facility] [address] , [facility] 11:25:37 Paresthe lucian of upper limb 50222872 Active [address], [facility] [address] , [facility] 16:03:31 Problem Notes None recorded. Procedures Surgical History Date Name Laterality Status Provider Name and Address Organization Details Recorded Time 4 Nebulizer tx completed RICKY JACOBS PA-C [address], [place], [address], [facility] 05/31/2023 11:22:43 4 Nebulizer tx completed NATACHA SALMERON [address], [place], [address], [facility] 05/15/2023 10:20:29 Imaging Results None recorded. Procedure Notes None recorded. Medical Equipment None Reported. Allergies Allergen ID Allergen Name Allergen Category Reaction Reaction Severity Criticality Documentation Date Start Date Code Code System Note Provider Name and Address Organization Details Recorded Time 49549 POLLEN EXTRACTS environme nt,medica tion Not available Not available Not available 09/03/20232006 77031 6 RxNorm [facility] 4 19:22:18 67681 Erythroci n medicatio n Not available Not available Not available 09/03/20232006 48405 3 Rx[facility] 4 19:22:30 57139 Medicinal product containin g penicilli n and acting as antibacte rial agent (product) medicatio n Not available Not available Not available 09/03/20232006 14478 05 SNOMED [facility] 4 19:22:47 Medications Name Sig Start Date Stop Date Status Note LastModified by Organization Details LastModified Time Moffit Thyroid 60 mg tablet Take 1 by mouth daily 2013 active Not Available Not Available Not Avai lable levothyroxi ne 137 mcg tablet TAKE ONE TABLET BY MOUTH EVERY DAY DIRECTED FOR HYPOTHYRO IDISM active Not Available Not Available No t Available Moffit Thyroid 90 mg tablet Take 1 tab by mouth daily 2013 active Not Available Not Available Not Avai lable doxycycline hyclate 100 mg capsule TAKE ONE CAPSULE BY MOUTH TWICE A DAY FOR 7 DAYS 05/15 completed Not Available Not Available Not Available Moffit Thyroid 180 mg tablet Take 1 tablet by mouth once a day 10/30 completed Not Available Not Available Not Available benzonatate 200 mg capsule TAKE ONE CAPSULE BY MOUTH THREE TIMES A DAY FOR 7 DAYS FOR COUGH 04/08 completed Not Available Not Available Not Available valacyclovi r 1 gram tablet Take 1 once a day 02/28 completed Not Available Not Available Not Available Synthroid 125 mcg tablet 1 qd 09/12 completed Not Available Not Available Not Available Medrol (Aung) 4 mg tablets in a dose pack Take as directed on pkg 01/24 completed Not Available Not Available Not Available prednisone 20 mg tablet TAKE TWO TABLETS BY MOUTH EVERY MORNING FOR 5 DAYS 04/08 completed Not Available Not Available Not Available Moffit Thyroid 120 mg tablet TAKE ONE TABLET BY MOUTH ONCE DAILY ALONG WITH ONE 15MG TABLET FOR A TOTAL DAILY DOSE OF 135MG 12/26 completed Not Available Not Available Not Available valacyclovi r 500 mg tablet TAKE ONE TABLET BY MOUTH EVERY DAY DIRECTED FOR RECURRENT HSV active Not Available Not Available No t Available Synthroid 175 mcg tablet 05/20 completed Not Available Not Available Not Available Moffit Thyroid 15 mg tablet TAKE ONE TABLET BY MOUTH ONCE DAILY WITH 120MG TABLET 12/26 completed Not Available Not Available Not Available clindamycin 1 % topical gel Apply to skin twice a day 06/10 completed Not Available Not Available Not Available clotrimazol e-betametha sone 1 %-0.05 % topical cream Apply 1 a small amount to skin twice a day for 2 weeks 12/13 completed Not Available Not Available Not Available Concerta 36 mg tablet,exte nded release Take 1 tablet by mouth once a day 04/20 completed Not Available Not Available Not Available levothyroxi ne 150 mcg tablet TAKE ONE TABLET BY MOUTH EVERY DAY DIRECTED FOR 90 DAYS FOR HYPOTHYRO IDISM 01/28 completed Not Available Not Available Not Available albuterol sulfate HFA 90 mcg/actuati on aerosol inhaler INHALE TWO PUFFS BY MOUTH EVERY 4 HOURS NEEDED FOR 30 DAYS FOR WHEEZING active Not Available Not Available No t Available fluticasone propionate 50 mcg/actuati on nasal spray,suspe nsion Marianna 1 spray twice a day by intranasa l route as needed for 7 days. 09/23 completed Not Available Not Available Not Available loratadine 10 mg tablet 1TAB qd 03/03 completed Not Available Not Available Not Available clindamycin phosphate 1 % topical solution Apply topically to affected area daily for acne 2018 active Not Available Not Available Not Avai lable Concerta 27 mg tablet,exte nded release 1 . qd ADD 05/02 completed Not Available Not Available Not Available Microgestin 05/12 (21) 1 mg-20 mcg tablet Take 1 tablet by mouth once a day 04/13 completed Not Available Not Available Not Available Plan B 07/12 completed Not Available Not Available Not Available multivitami n 1 bid 03/03 completed Not Available Not Available Not Available Seasonique 1 qd 10/05 completed Not Available Not Available Not Available lisdexamfet amine 20 mg capsule Take 1 capsule every day by oral route for 28 days. 2023 active Not Available Not Available Not Avai lable Probiotic 1 scoop qd 03/03 completed Not Available Not Available Not Available lidocaine 5 % topical ointment Apply to skin four times a day 03/07 completed Not Available Not Available Not Available Vicodin 5 mg-300 mg tablet 1 PO q6h prn 02/17 completed Not Available Not Available Not Available Vitals Date Recorded Body height Body weight Body mass index (BMI) Body temperature Oxygen saturation Oxygen saturation in Arterial blood by Pulse oximetry Heart rate Respiratory rate Systolic blood pressure Diastolic blood pressure Provider Name and Address Organization Details Last Updated DateTime 4 153.67 cm 02047.8 9 g 42.2 kg/m2 98.8 [degF] 97 % 97 % 89 /min 18 /min 120 mm[Hg] 72 mm[Hg] Gaby Driscoll [place] - [facility]. 4 14:11:33 Social History Question Answer Notes LastModified by Organizat ion Details LastModified Time Tobacco Smoking Status Never Smoker JOSE Leos, [place] - [facility]. 03/07/2023 17:48:34 Would You Say That, In General, Your Health Is Good [email or web address] Information not available 04/08/2024 Women Aged 18-50 - Would You Like To Become In The Next Year? (Female Patients Only) No [email or web address] Information not available 04/08/2024 How Often Does Anyone, Including Family, Physically Hurt You? Never [email or web address] Information not available 04/08/2024 How Often Does Anyone, Including Family, Insult Or Talk Down To You? Sometimes Information no t available 04/08/2024 How Often Does Anyone, Including Family, Threaten You With Harm? Never [email or web address] Information not available 04/08/2024 How Often Does Anyone, Including Family, Scream Or Curse At You? Rarely Information not available 04/08/2024 Within The Past 12 Months, You Worried That Your Food Would Run Out Before You Got Money To Buy More. Never True [email or web address] Information n ot available 04/08/2024 Within The Past 12 Months, The Food You Bought Just Didn't Last And You Didn't Have Money To Get More. Never True [email or web address] Information n ot available 04/08/2024 How Hard Is It For You To Pay For The Very Basics Like Food, Housing, Medical Care, And Heating? Would You Say It Is: Not Hard At All [email or web address] Information not available 04/08/2024 In The Past 12 Months, Has Lack Of Reliable Transportation Kept You From Medical Appointments, Meetings, Work Or From Getting Things Needed For Daily Living? No [email or web address] Information not available 04/08/2024 What Is Your Housing Situation Today? I Have Housing. [email or web address] Information not available 04/08/2024 How Often In The Past Year Have You Used Marijuana (including Smoking, Vaping, Dabbing, Or Edibles)? Never [email or web address] Information not available 04/08/2024 How Often In The Past Year Have You Used Prescription Medications That Were Not Prescribed To You? Never Information n ot available 04/08/2024 How Often In The Past Year Have You Taken Your Own Prescription Medication More Than The Way It Was Prescribed Or For Different Reasons Than Its Intended Purpose? Never [email or web address] Information no t available 04/08/2024 How Often In The Past Year Have You Used Other Drugs (for Example, Heroin, Cocaine, Meth, Salvia, Inhalants)? Never [email or web address] Information not available 04/08/2024 Have You Ever Used IV Drugs? No [email or web address] Information not available 04/08/2024 Date Of Most Recent SBINS 04/08/2024 Information not available 04/08/2024 What Was The Date Of Your Most Recent Tobacco Screening? 01/29/2024 [email or web address] Information not available 01/29/2024 Has Tobacco Cessation Counseling Been Provided? Yes Information not available 05/15/2023 On What Date Was Tobacco Cessation Counseling Provided? 01/29/2024 [email or web address] Information not available 01/29/2024 Do You Or Have You Ever Used Any Other Forms Of Tobacco Or Nicotine? No Information not available 05/15/2023 Sex: Female Functional Status None recorded. Mental Status None recorded. Family History Relationship Description Onset Age of this Age Resolved Age Notes LastModified by Organization Details LastModified Time Unspecified Relation Family history of breast cancer 1 gene mutation Relati ve: 'Aunt' ; [email or web address] Not available 03/02/2023 03:54:49 Notes:*Problem: Children: Andrew Cervantes ( 07/06/93), son; Nori De Leon ( 08/07/98), daughter; Alexandra De Leon ( 09/27/01), daughter. Siblings: 5 Family History of: Diabetes mellitus: yes Breast cancer: yes 2 maternal aunts throat cancer- father Medical History No medical history recorded. Gynecological HistoryNo gynecological history recorded. Obstetrics History GPAL:G 0 P 0 0 0 0 Immunizations Vaccine Type Date Status Note Provider Nam e and Address Organization Details Recorded Time Td (adult), 5 Lf tetanus toxoid, preservative free, adsorbed 8 completed Not Available [facility] 03/02/2023 06:32:46 Influenza, split virus, trivalent, preservative 5 completed Not Available [facility] 03/02/2023 06:32:46 zoster recombinant 1 completed Not Available [facility] 03/02/2023 06:32:47 zoster recombinant 1 completed Not Available [facility] 03/02/2023 06:32:47 COVID-19, mRNA, LNP-S, PF, 100 mcg/0.5mL dose or 50 mcg/0.25mL dose 1 completed Not Available [facility] 03/02/2023 06:32:47 COVID-19, mRNA, LNP-S, PF, 100 mcg/0.5mL dose or 50 mcg/0.25mL dose 0 completed Not Available [facility] 03/02/2023 06:32:47 SARS-COV-2 (COVID-19) vaccine, UNSPECIFIED 1 completed Not Available [facility] 03/02/2023 06:32:47 influenza, unspecified formulation 0 completed Not Available [facility] 03/02/2023 06:32:47 influenza, unspecified formulation 2 completed Not Available [facility] 03/02/2023 06:32:47 influenza, unspecified formulation 3 completed Lyla Mistry RN null, [facility] 04/25/2023 12:43:24 Tdap 3 completed Lyla Mistry RN null, [facility] 04/25/2023 12:43:40 Pneumococcal conjugate PCV20, polysaccharide [id number] conjugate, adjuvant, PF [address], [place], [address], [facility] 04/09/2024 07:13:52 COVID-19, mRNA, LNP-S, PF, pj-sucrose, 30 mcg/0.3 mL [address], [place], [address], [facility] 04/09/2024 07:13:52 influenza, unspecified formulation 4 completed Deysi Muñoz MA null, [facility] 04/08/2024 15:36:16 Past Encounters Encounter ID Performer Location Encounter Start Date Encounter Closed Date Diagnosis/Indication Diagnosis SNOMED-CT Code Diagnosis ICD10 Code [id number] NATACHA WOLFE [facility] [address] [place] [address] 04/08/2024 13:48:38 04/08/2024 15:38:18 Active or passive immunization 677748792 Z23 Adult heal th examination 992890802 Z00.00 Screening for malignant neoplasm of colon 016242946 Z12.11 Hypothyroidism 65105088 E03.9 Obstructiv e sleep apnea syndrome 99323187 G47.33 Body mass index 40+ - severely obese 842051841 Z68.41 Herpesvirus infection 23 107163 B00.9 Attention deficit hyperactivity disorder, predominantly inattentive type 96372976 F90.0 Health Concerns Section Related Observation LastModified by Organization Detai ls LastModified Time None Recorded Concern Status LastModified by Organization Details LastModified Time None Recorded Payers Encounter Date Sequence Insurance Name Policy Number Policy Cruz Covered Member ID Cruz Member ID Guarantor Name 04/08/2024 2 [place] [id number] Ciara Sexton 04/08/2024 3 [facility] ([facility]) [id number] Ciara Sexton [id number] Ciara Sexton Notes Date Note Type Note Provider Name and Address Organization Details Recorded Time 04/08/2024 text/html Ciara presents to [facility] today for her annual preventive wellness exam.Medical history includes hypothyroidism, ADD, MISAEL (oral appliance). Currently participating in PT for right thoracic outlet syndrome, tentatively scheduled for EMG testing next month.Employment - working as a nurse at [employer]. Household - self. Life stressors - mother in 2022 from complications associated with severe alzheimer's; Ciara was the primary caregiver up to the time of her . NATACHA WOLFE [address], [place], [address], [place] - [facility] 04/09/2024 07:26:56 OBGyn Episode No OBEpisode recorded.
--- OUTSIDE RECORDS SUMMARY | 2024-04-11 12:41 | XMS_ITS | Encounter Summary ---
Author Organization [facility] Address [address] [place] [address] Care Team Providers Care Benzene Worker Name Role Phone Nuha Cummings NATACHA Primary Care Provider [phone] Encounter Details Date Type Department Care Team (Late st Contact Info) Description 02/11/2020 Lab Requisition [facility] Pathology & Laboratory Medicine - [facility] [address] [place] [address] Outr Resulting Lab, Provider Social History Tobacco Use Types Packs/Day Years Used Date Smoking Tobacco: Former Cigarettes Q uit: 1994 Alcohol Use Standard Drinks/Week Comments Yes 0 (1 standard drink = 0.6 oz pur e alcohol) 2-4 occasionally Interpersonal Safety Answer Date Record ed Physically Hurt Never 11/23/2019 Verbally Threaten Not on file 11/23/2019 Comments Unknown Sex and Gender Information Value Date Recorded Sex Assigned at Not on file Legal Sex Female 18:19 EST Gender Identity Not on file Sexual Orientation Not on file documented as of this encounter Plan of Treatment Not on file documented as of this encounter Procedures Procedure Name Priority Date/Time Associated Diagnosis Comments CHLAMYDIA/N. GONORRHOEAE AMPLIFIED NUCLEIC ACID, THINPREP Routine 02/06/2020 10:45 EDT documented in this encounter Results * CHLAMYDIA/N. GONORRHOEAE AMPLIFIED RNA, THINPREP (02/06/2020 10:45 EDT) Neisseria gonorrhoeae Result Negative Negative 02/12/2020 15:34 EDT [facility] Chlamydia trachomatis Result Negative Negative 02/12/2020 15:34 EDT [facility] Papanicolaou smear specimen (specimen) CERVIX UTERI STRUCTURE / Unknown 02/06/2020 10:45 EDT 02/12/2020 8:29 EDT us Provider Outr Resulting Lab MICROBIOLOGY - GENER AL ORDERABLES Final Result [facility] [address] [place] [address] documented in this encounter Visit Diagnoses Not on filedocumented in this encounter Additional Health Concerns Infection Onset Date Last Indicated Resolved Time COVID-19 09/05/2021 09/05/2021 09/25/2021 22:1 5 EDT documented as of this encounter Care Teams Benzene Worker Relationship Specialty Start Date End Date Nuha [place] [place] [address] PCP - General 06/16/19 documented as of this encounter
--- OUTSIDE RECORDS SUMMARY | 2024-04-11 12:41 | XMS_ITS | Encounter Summary ---
Author Organization [facility] Address [address] [place] [address] Care Team Providers Care Repairer Helper Name Role Phone Nuha Cummings NATACHA Primary Care Provider [phone] Encounter Details Date Type Department Care Team (Late st Contact Info) Description 02/09/2020 Lab Requisition [facility] Pathology & Laboratory Medicine - [facility] [address] [place] [address] Outr Resulting Lab, Provider Social History Tobacco Use Types Packs/Day Years Used Date Smoking Tobacco: Never Assessed Interpersonal Safety Answer Date Record ed Physically [...] Procedure Name Priority Date/Time Associated Diagnosis Comments HSV (HERPES SIMPLEX VIRUS) MOLECULAR DETECTION, PCR Routine 02/06/2020 11:10 EDT SYPHILIS SEROLOGY Routine 02/06/2020 11: 10 EDT documented in this encounter Results * HERPES SIMPLEX VIRUS MOLECULAR DETECTION, PCR (02/06/2020 11:10 EDT) Herpes Simplex Virus Molecular Detection 1, PCR Negative Negative 02/10/2020 11:27 EDT [facility] Herpes Simplex Virus Molecular Detection 2, PCR Negative Negative 02/10/2020 11:27 EDT [facility] Swab ENTIRE HAIR / Unknown 02/06/2020 11:10 EDT 02/09/2020 19:32 EDT us Provider Outr Resulting Lab MICROBIOLOGY - GENER AL ORDERABLES Final Result Performing Organization Address [facility] Co de Phone Number [facility] [address] [place] [address] * SYPHILIS SEROLOGY (02/06/2020 11:10 EDT) Syphilis Serology Negative Negative 02/10/2020 10:00 EDT [facility] Blood VENOUS BLOOD / Unknown 02/06/2020 11:10 EDT 02/09/2020 16:54 EDT us Provider Outr Resulting Lab IMMUNOLOGY AND SEROL OGY ORDERABLES Final Result Performing Organization Address [facility] de Phone Number [facility] [address] [place] [address] documented in this encounter Visit Diagnoses Not on filedocumented in this encounter Additional Health Concerns Infection Onset Date Last Indicated Resolved Time COVID-19 09/05/2021 09/05/2021 09/25/2021 22:1 5 EDT documented as of this encounter Care Teams Repairer Helper Relationship Specialty Start Date End Date Nuha Cummings [place] [address] PCP - General 06/16/19 documented as of this encounter
--- OUTSIDE RECORDS SUMMARY | 2024-04-11 12:41 | XMS_ITS | Encounter Summary ---
Author Organization [facility] Address [address] [place] [address] Care Team Providers Care Registered Dental Assistant Rda Name Role Phone Emiliana Gallo APRN Primary Care Provider [phone] Encounter Details Date Type Department Care Team (Late st Contact Info) Description 04/05/2016 Historical Results Only [facility] - Main [place] [address] [place] [address] [id number] Leeann Lynch MD [address] [place] [address] [address] [place] [address] Social History Tobacco Use Types Packs/Day Years Used Date Smoking Tobacco: Former Cigarettes Q uit: 1994 Alcohol Use Standard Drinks/Week Comments Yes 0 (1 standard drink = 0.6 oz pur e alcohol) 2-4 occasionally Comments Unknown Sex and Gender Information Value Date Recorded Sex Assigned at Not on file Legal Sex Female 18:19 EST Gender Identity Not on file Sexual Orientation Not on file documented as of this encounter Plan of Treatment Not on file documented as of this encounter Procedures Procedure Name Priority Date/Time Associated Diagnosis Comments SURGICAL PATHOLOGY Routine 04/05/2016 documented in this encounter Results * SURGICAL PATHOLOGY (04/05/2016) 04/05/2016 04/05/2016 10: 59 EST Narrative [facility] - 04/06/2016 10:43 EST ----- ------- Name: CIARA LYNCH ? : 67 ?Age/Sex: 53/F ?Unit#: [id number] ? Loc: SDS ? Status: DEP SDC ?? Reg Date: 04/05/16 ? Pt.Phone Number: ? ----- ------- Specimen: [id number] ? STATUS: SOUT ?Spec Date:04/05/16 ? Physician Copies: ?Leeann Lynch MD Tissues: A ?? Gallbladder ?Tammy Jarrell ? CPT: 22276 ?? Units: ??1 ?FINAL DIAGNOSIS ? GALLBLADDER, CHOLECYSTECTOMY; ? -Chronic cholecystitis with cholelithiasis ? -Benign pericystic lymph node is noted. ? GROSS DESCRIPTION ? Received in formalin labeled with the patient's name and gallbladder is a ? cholecystectomy specimen measuring 9.0 cm in length. ??Surgical clips are ? present at the cystic duct margin which has a diameter of 0.3 cm. ??The ? gallbladder body measures up to 2.5 cm in diameter. ??The gallbladder is ? surgically opened. ??There is a single yellow rough irregular stone within the ? specimen container with a diameter of 2.0 cm. ??The serosal surface is ? elx-hvll-kcsqzx, smooth and glistening. ??There is a possible cystic duct lymph ? node with a diameter of 0.8 cm. ??Fully opening the gallbladder releases ? approximately 5 cc of espinosa brown bile. ??The mucosal surface is teh-rpht-exhbb ? and velvety. ??No suspicious masses are identified. ??r.s. 1. ??KF ?? PREOP DX/CLINICAL HISTORY ?Cholelithiasis Signed ____(signature on file)____ Marisa Mckenzie M.D. 04/06/16 ? By the signature above, the attending physician certifies that he/she has personally conducted a gross and/or microscopic examination of the described specimens and rendered or confirmed the above diagnosis. Test Performed by [facility], [address] [place] [address] Editor In Chief: Carmen Giordano MD PHD ----- ------- us Leeann Lynch MD PATHOLOGY ORDERABLES F inal Result [facility] documented in this encounter Visit Diagnoses Not on filedocumented in this encounter Care Teams Registered Dental Assistant Rda Relationship Specialty Start Date End Date Emiliana Gallo APRN [address] [place] [address] PCP - General 01/25/16 06/15/19 documented as of this encounter
--- OUTSIDE RECORDS SUMMARY | 2024-04-11 12:41 | XMS_ITS | Encounter Summary ---
Author Organization [facility] Address [address] [place] [address] Care Team Providers Care Sleeve Ironer Name Role Phone Emiliana Gallo APRN Primary Care Provider [phone] Encounter Details Date Type Department Care Team (Late st Contact Info) Description 02/21/2016 Abstract [facility] General Surgery - [address] [place] [address] Emiliana Gallo APRN [address] [place] [address] Social History Tobacco Use Types Packs/Day Years Used Date Smoking Tobacco: Never Assessed Comments Unknown Sex and Gender Information Value Date Recorded Sex Assigned at Not on file Legal Sex Female 18:19 EST Gender Identity Not on file Sexual Orientation Not on file documented as of this encounter Plan of Treatment Not on file documented as of this encounter Visit Diagnoses Not on filedocumented in this encounter Historical Medications * This list may reflect changes made after this encounter. methylphenidate (CONCERTA) 36 mg CR tablet Take 36 mg by mouth daily. thyroid, Pork, (ARMOUR THYROID) 120 mg tablet Take 120 mg by mouth daily. added in this encounter Care Teams Sleeve Ironer Relationship Specialty Start Date End Date Emiliana Gallo APRN [address] [place] [address] PCP - General 01/25/16 06/15/19 documented as of this encounter
--- OUTSIDE RECORDS SUMMARY | 2024-04-11 12:41 | XMS_ITS | Encounter Summary ---
Author Organization [facility] Address [address] [place] [address] Care Team Providers Care Route Rider Name Role Phone Emiliana Gallo APRN Primary Care Provider [phone] Encounter Details Date Type Department Care Team (Latest Contact Info) Description 02/18/2016 11:27 EDT - 02/18/2016 23:59 EDT Hospital Encounter [facility] [address] [place] [address] Unknown, Provider, MD Discharge Disposition: Home or Self Care Social History Tobacco Use Types Packs/Day Years Used Date Smoking Tobacco: Never Assessed Comments Unknown Sex and Gender Information Value Date Recorded Sex Assigned at Not on file Legal Sex Female 18:19 EST Gender Identity Not on file Sexual Orientation Not on file documented as of this encounter Discharge Disposition Disposition Code Departure Means Destination Home or Self Snf documented in this encounter Plan of Treatment Not on file documented as of this encounter Visit Diagnoses Not on filedocumented in this encounter Care Teams Route Rider Relationship Specialty Start Date End Date Emiliana Gallo APRN [facility] [address] [place], [place] [address] PCP - General 01/25/16 06/15/19 documented as of this encounter
--- OUTSIDE RECORDS SUMMARY | 2024-04-11 12:41 | XMS_ITS | Encounter Summary ---
Author Organization [facility] Address [address] [place] [address] Care Team Providers Care Trial Lawyer Name Role Phone Emiliana Aquino APRN Primary Care Provider [phone] Encounter Details Date Type Department Care Team (Late st Contact Info) Description 05/21/2017 Results Only [facility] [phone] Emiliana Aquino APRN [address] [facility] [address] [place], [place] [address] Social History Tobacco Use Types Packs/Day Years [...] Procedure Name Priority Date/Time Associated Diagnosis Comments PAP TEST- RESULT ONLY Routine 05/21/2017 0:00 EST documented in this encounter Results * PAP TEST- RESULT ONLY (05/21/2017 0:00 EST) Pathology Report: CYTOPATHOLOGY REPORT Reports generated via electronic interface contain original data; however they are lacking the format of the original report. Caution should be taken when reading/interpreti ng unformatted reports. Name: ? CIARA LYNCH ? Accession #: ? [id number] ? : ? 1965 (Age: 51) ??F ?Collect Date: ? 05/21/2017 ? Location: ? [facility] ? Receive Date: ? 05/22/2017 ? Provider: EMILIANA AQUINO APRN Copy to: ? Final Report SPECIMEN ADEQUACY ? Satisfactory for Evaluation - transformation zone component present GENERAL CATEGORIZATION ? Epithelial Cell Abnormality INTERPRETATION ? Squamous Cell Abnormality - Atypical squamous cells, undetermined significance (ASC-US). EDUCATIONAL NOTES/RECOMMENDATI ONS ? [facility] recommends following ASCCP's 2012 Updated Consensus Guidelines for the Management of Abnormal Cervical Cancer Screening Tests and Cancer Precursors (JLGTD, 2013; 17(5):S1-S27). ??Consensus guidelines are available online at www.asccp.org. Last Menstrual Period: 05/14/2017 Specimen/Source: ??Pap Test, Cervix, ThinPrep Imaging System with manual evaluation Document reviewed and electronically signed by: ? RADHA AMADOR MD for ISABEL MAYES MD ? Report ??Date: 05/30/2017 12:10 HPV with Pap Test ? Date Ordered: ? 05/30/2017 ? Status: ?? Signed Out ?Date Complete: ? 05/31/2017 ? By: ??System Interface ? Date Reported: ? 05/31/2017 ? Interpretation RESULT: Positive for high or intermediate risk HPV. E6 OR E7 mRNA from one or more types of HPV types 16,18,31, 33,35,39,45,51,52, 56,58,59,66, and 68 is detected by c wpf developer mediated amplification. High and intermediate risk HPV types are associated with most squamous intraepithelial lesions and cervical cancers. Comments Document reviewed and electronically signed by: ? System Interface ? Report date: 05/31/2017 By the signature above, the attending physician certifies that he/she has personally conducted a gross and/or microscopic examination of the described specimens and rendered or confirmed the above diagnosis. End of Report [facility] 05/21/2017 05/22/2017 us Emiliana Aquino APRN PATHOLOGY ORDERABLES Final Re sult [facility] [address] [place] [address] documented in this encounter Visit Diagnoses Not on filedocumented in this encounter Care Teams Trial Lawyer Relationship Specialty Start Date End Date Emiliana Aquino APRN [facility] [address] [place] [address] PCP - General 01/25/16 06/15/19 documented as of this encounter
--- OUTSIDE RECORDS SUMMARY | 2024-04-11 12:41 | XMS_ITS | Encounter Summary ---
Author Organization [facility] Address [address] [place] [address] Care Team Providers Care Commercial Relationship Manager Name Role Phone Emiliana Gallo APRN Primary Care Provider [phone] Reason for Visit * Reason Comments Post-OP Follow Up Encounter Details Date Type Department Care Team (Latest Contact Info) Description 04/20/2016 10:30 EST Office Visit [facility] General Surgery - [address] [address] Leeann Lynch MD [address] [address] Calculus of gallbladder with chronic cholecystitis without obstruction (Primary Dx) Social History Tobacco Use Types Packs/Day Years Used Date Smoking Tobacco: Former Cigarettes Q uit: 1993 Alcohol Use Standard Drinks/Week Comments Yes 0 (1 standard drink = 0.6 oz pur e alcohol) 2-4 occasionally Comments Unknown Sex and Gender Information Value Date Recorded Sex Assigned at Not on file Legal Sex Female 18:19 EST Gender Identity Not on file Sexual Orientation Not on file documented as of this encounter Last Filed Vital Signs Vital Sign Reading Time Taken Comments Blood Pressure 114/72 04/20/2016 1036 EST Pulse 80 04/20/2016 1036 EST Temperature - - Respiratory Rate - - Oxygen Saturation - - Inhaled Oxygen Concentration - - Weight - - Height - - Body Mass Index - - documented in this encounter Progress Notes * Leeann Lynch MD - 04/20/2016 1030 EST Subjective: Ciara Sexton presents to the clinic 2 weeks following laparoscopic cholecystectomy and cholangiogram. Eating a regular diet without difficulty. Bowel movements are normal. The patient is not having any pain. Objective: Visit Vitals ??? BP 114/72 ??? Pulse 80 General: alert and cooperative Abdomen: soft, bowel sounds active Incision: healing well, well approximated Assessment: Doing well postoperatively. Plan: 1. Operative findings reviewed and discussed with the patient. She did have a cyst of her right ovary and will need follow up with her DIRECTOR OF ARCHIVES The patholgy report was reviewed with the patient. I supplied her with a copy of the report. 2. Wound care discussed. 3. Pt is to increase activities as tolerated. 4. Follow up as needed. documented in this encounter Plan of Treatment Not on file documented as of this encounter Visit Diagnoses Diagnosis Calculus of gallbladder with chronic cholecystitis without obstruction- Primary Calculus of gallbladder with other cholecystitis, without mention of obstruction documented in this encounter Care Teams Commercial Relationship Manager Relationship Specialty Start Date End Date Emiliana Gallo APRN [address] [place] [address] PCP - General 01/25/16 06/15/19 documented as of this encounter
--- OUTSIDE RECORDS SUMMARY | 2024-04-11 12:41 | XMS_ITS | Encounter Summary ---
Author Organization [facility] Address [address] [place] [address] Care Team Providers Care Relationship Associate Name Role Phone Emiliana Gallo APRN Primary Care Provider [phone] Encounter Details Date Type Department Care Team (Late st Contact Info) Description 08/30/2018 Results Only [facility] [phone] Bam Cummings FNP [address] [place] [address] Social History Tobacco Use Types Packs/Day Years [...] Diagnosis Comments PAP TEST- RESULT ONLY Routine 08/30/2018 0:00 EDT documented in this encounter Results * PAP TEST- RESULT ONLY (08/30/2018 0:00 EDT) Pathology Report: CYTOPATHOLOGY REPORT Reports generated via electronic interface contain original data; however they are lacking the format of the original report. Caution should be taken when reading/interpreti ng unformatted reports. Name: ? CIARA LYNCH ? Accession #: ? [id number] ? : ? 1965 (Age: 52) ??F ?Collect Date: ? 08/30/2018 ? Location: ? [facility] ? Receive Date: ? 09/02/2018 ? Provider: BAM CUMMINGS ELECTROSLAG WELDING MACHINE OPERATOR Copy to: ? Final Report SPECIMEN ADEQUACY ? Satisfactory for Evaluation - transformation zone component absent GENERAL CATEGORIZATION ? Epithelial Cell Abnormality INTERPRETATION ? Squamous Cell Abnormality - Atypical squamous cells, undetermined significance (ASC-US). EDUCATIONAL NOTES/RECOMMENDATI ONS ? [facility] recommends following ASCCP's 2012 Updated Consensus Guidelines for the Management of Abnormal Cervical Cancer Screening Tests and Cancer Precursors (JLGTD, 2013; 17(5):S1-S27). ??Consensus guidelines are available online at www.asccp.org. Other: Additional clinical information: Z00.00 Z12.4 Z11.51 Specimen/Source: ??Pap Test, Cervix, ThinPrep Imaging System with manual evaluation Document reviewed and electronically signed by: ? NITA SHIRLEY MD ? Report ??Date: 09/05/2018 16:00 HPV with Pap Test ? Date Ordered: ? 09/05/2018 ? Status: ?? Signed Out ?Date Complete: ? 09/06/2018 ? By: ??System Interface ? Date Reported: ? 09/06/2018 ? Interpretation RESULT: POSITIVE FOR HIGH OR INTERMEDIATE RISK HPV. E6 OR E7 mRNA from one or more types of HPV types 16,18,31, 33,35,39,45,51,52, 56,58,59,66, and 68 is detected by family support coordinator mediated amplification. High and intermediate risk HPV types are associated with most squamous intraepithelial lesions and cervical cancers. Comments Document reviewed and electronically signed by: ? System Interface ? Report date: 09/06/2018 By the signature above, the attending physician certifies that he/she has personally conducted a gross and/or microscopic examination of the described specimens and rendered or confirmed the above diagnosis. End of Report [facility] 08/30/2018 09/02/2018 us Bam Cummings ELECTROSLAG WELDING MACHINE OPERATOR PATHOLOGY ORDERABLES Final Res ult [facility] [address] [place] [address] documented in this encounter Visit Diagnoses Not on filedocumented in this encounter Care Teams Relationship Associate Relationship Specialty Start Date End Date Emiliana Gallo APRN [address] [place] [address] PCP - General 01/25/16 06/15/19 documented as of this encounter
--- OUTSIDE RECORDS SUMMARY | 2024-04-11 12:41 | XMS_ITS | Encounter Summary ---
Author Organization [facility] Address [address] [place] [address] Care Team Providers Care Sand Mill Grinder Name Role Phone Nuha Cummings NATACHA Primary Care Provider [phone] Encounter Details Date Type Department Care Team (Late st Contact Info) Description 02/07/2020 Lab Requisition [facility] Pathology & Laboratory Medicine - [facility] [address] [place] [address] Outr Resulting Lab, Provider Social History Tobacco [...] Procedure Name Priority Date/Time Associated Diagnosis Comments HIV 1/2 ANTIGEN AND ANTIBODY, 4TH GENERATION Routine 02/06/2020 11:10 EDT documented in this encounter Results * HIV 1/2 ANTIGEN AND ANTIBODY, 4TH GENERATION (02/06/2020 11:10 EDT) HIV 1 and 2 Antibody/p24 Antigen, 4th Generation Negative Negative 02/09/2020 11:52 EDT [facility] Comment: If acute HIV-1 infection is suspected in a high risk ??patient, submit plasma specimen for HIV-1 RNA quantitation test. Fourth Generation assay performed on the Siemens Centaur. Blood VENOUS BLOOD / Unknown 02/06/2020 11:10 EDT 02/08/2020 17:02 EDT us Provider Outr Resulting Lab IMMUNOLOGY AND SEROL OGY ORDERABLES Final Result [facility] [address] [place] [address] documented in this encounter Visit Diagnoses Not on filedocumented in this encounter Additional Health Concerns Infection Onset Date Last Indicated Resolved Time COVID-19 09/05/2021 09/05/2021 09/25/2021 22:1 5 EDT documented as of this encounter Care Teams Sand Mill Grinder Relationship Specialty Start Date End Date Nuha Cummings FNP [address] [place] [place] [address] PCP - General 06/16/19 documented as of this encounter
--- OUTSIDE RECORDS SUMMARY | 2024-04-11 12:41 | XMS_ITS | Encounter Summary ---
Author Organization [facility] Address [address] [place] [address] Care Team Providers Care Jd Edwards Name Role Phone Emiliana Gallo APRN Primary Care Provider [phone] Reason for Visit * Reason Comments Cholelithiasis Encounter Details Date Type Department Care Team (Latest Contact Info) Description 02/24/2016 15:30 EDT Office Visit [facility] General Surgery - [address] [address] Leeann Lynch MD 130 [facility] [address] [address] Calculus of gallbladder with chronic [...] Sign Reading Time Taken Comments Blood Pressure 115/71 02/24/2016 1524 EDT Pulse 88 02/24/2016 1524 EDT Temperature - - Respiratory Rate - - Oxygen Saturation - - Inhaled Oxygen Concentration - - Weight 88 kg (194 lb) 02/24/2016 1524 EDT Height 154.9 cm (5' 1) 02/24/2016 1524 EDT Body Mass Index 36.66 02/24/2016 1524 EDT documented in this encounter Progress Notes * Leeann Lynch MD - 02/24/2016 1530 EDT Gallbladder Surgery Preoperative History and Physical Subjective: Patient is a 50 y.o. female presenting with abdominal pain. Onset of symptoms was gradual 2 years ago with gradually improving course since that time. The pain is located in the RUQ with radiation tochest. Patient describes the pain as aching and colicky, continuous. She changed her diet and did well for the past year and a half but now seems to Have more frequents smaller attacks. Especially ifshe eats peanut butter. Patient Active Problem List Diagnosis ??? Calculus of gallbladder with chronic cholecystitis without obstruction Past Medical History Diagnosis Date ??? ADD (attention deficit disorder) ??? Arthritis ??? Thyroid disease (Not in a hospital admission) Allergies Allergen Reactions ??? Amoxicillin ??? Penicillins Past Surgical History Procedure Laterality Date ??? section ??? Kidney stone surgery Family History Problem Relation Age of Onset ??? Arthritis Mother ??? Depression Mother ??? Cancer Father skin Social History Substance Use Topics ??? Smoking status: Former Smoker Quit date: 1993 ??? Smokeless tobacco: None ??? Alcohol use Yes Comment: 2-4 occasionally Work status: Works as a Psych nurse here at [employer] Review of Systems: See intake from. All other systems reviewed and are negative. Objective: Visit Vitals ??? BP 115/71 ??? Pulse 88 ??? Ht 154.9 cm (61) ??? Wt 88 kg (194 lb) ??? BMI 36.66 kg/m2 Physical Examination: General: alert, active, in no acute distress Neck: normal Heart: regular rate Lungs: clear - bilaterally Abdomen: Abdomen soft, non-tender. BS normal. No masses, organomegaly Musculoskeletal: no cyanosis, clubbing, or edema Skin: Normal Neurologic: Grossly nromal Behavioral: Pleasant with normal affect. Laboratory: None Imaging: CT shows a large stone within the infundibulum. No US. Assessment: Ciara was seen today for cholelithiasis. Diagnoses and all orders for this visit: Calculus of gallbladder with chronic cholecystitis without obstruction Patient has been successful with conservative therapy for short period of time but now developing worsening symptoms. She does wish to proceed with surgical intervention. Plan: I reviewed with the patient the pathophysiology of gall stones and gall bladder disease. I suppliedher with additional information and a booklet about gall bladder disease and surgery. Also I reviewed with the patient the surgical process and what to expect during the postoperative period. I did state that a minority of patients can experience gas, bloating or diarrhea after cholecystectomy. Generally these symptoms resolve several months after surgery. We discussed the risks of surgery include bleeding, infection, injury to another organ or injury tobile duct causing bile leak. As well there is always a risk of converting to an open procedure. Therisks of general anesthetic including TX, CVA, sudden or even reaction to anesthetic medications was discussed. The patient understands the risks, any and all questions were answered to the lb ent's satisfaction and they freely signed the consent for operation. Surgery will be scheduled at the patient's earliest convenience. documented in this encounter Plan of Treatment Not on file documented as of this encounter Visit Diagnoses Diagnosis Calculus of gallbladder with chronic cholecystitis without obstruction- Primary Calculus of gallbladder with other cholecystitis, without mention of obstruction documented in this encounter Care Teams Jd Edwards Relationship Specialty Start Date End Date Emiliana Gallo APRN [address] [place] [address] PCP - General 01/25/16 06/15/19 documented as of this encounter
--- OUTSIDE RECORDS SUMMARY | 2024-04-11 12:41 | XMS_ITS | Encounter Summary ---
Author Organization [facility] Address [address] [place] [address] Care Team Providers Care Nps Name Role Phone Emiliana Gallo APRN Primary Care Provider [phone] Reason for Visit * Reason Onset Date Comments Appointment Related 03/06/2016 Encounter Details Date Type Department Care Team (Late st Contact Info) Description 03/06/[address] [facility] General Surgery - [place] [address] [address] Leeann Lynch MD 130 [facility] [address] [address] Appointment Related Social History Tobacco Use Types Packs/Day Years [...] on file documented as of this encounter Miscellaneous Notes * Telephone Encounter - Alberta Garcia - 03/06/2016 1034 EST Ciara Carlie 6.7.67 called to see if she can switch her surgery date. Please call back @ [phone] documented in this encounter Plan of Treatment Not on file documented as of this encounter Visit Diagnoses Not on filedocumented in this encounter Care Teams Nps Relationship Specialty Start Date End Date Emiliana Gallo APRN [address] [place] [address] PCP - General 01/25/16 06/15/19 documented as of this encounter
--- OUTSIDE RECORDS SUMMARY | 2024-04-11 12:41 | XMS_ITS | Encounter Summary ---
Author Organization [facility] Address [address] [place] [address] Care Team Providers Care Scrubber Operator Name Role Phone Emiliana Gallo APRN Primary Care Provider [phone] Encounter Details Date Type Department Care Team (Latest Contact Info) Description 05/21/2017 17:58 EST - 05/21/2017 23:59 EST Hospital Encounter [address] [address] Unknown, Provider, MD Discharge Disposition: Home or [...] on file documented as of this encounter Medications at Time of Discharge methylphenidate (CONCERTA) 36 mg CR tablet Take 36 mg by mouth daily. thyroid, Pork, (ARMOUR THYROID) 120 mg tablet Take 120 mg by mouth daily. documented as of this encounter Discharge Disposition Disposition Code Departure Means Destination Home or Self Intermediate documented in this encounter Plan of Treatment Not on file documented as of this encounter Visit Diagnoses Not on filedocumented in this encounter Care Teams Scrubber Operator Relationship Specialty Start Date End Date Emiliana Gallo APRN [address] [place] [address] PCP - General 01/25/16 06/15/19 documented as of this encounter
--- OUTSIDE RECORDS SUMMARY | 2024-04-11 12:41 | XMS_ITS | Encounter Summary ---
Author Organization [facility] Address [address] [place] [address] Care Team Providers Care Roller Operator Name Role Phone Unavailable Primary Care Provider Unavailabl e Encounter Details Date Type Department Care Team (Late st Contact Info) Description 10/24/2011 Results Only [facility] - [facility] ([facility]) [address] [place], [place] [address] Marisel Rios, BONNY [address] [place] [address] Social History Tobacco Use Types Packs/Day Years [...] Diagnosis Comments PAP TEST- RESULT ONLY Routine 10/24/2011 0:00 EDT documented in this encounter Results * PAP TEST- RESULT ONLY (10/24/2011 0:00 EDT) Pathology Report: CYTOPATHOLOGY REPORT Reports generated via electronic interface contain original data; however they are lacking the format of the original report. Caution should be taken when reading/interpreti ng unformatted reports. Name: ? CIARA BRUMFIELD ? Accession #: ? [id number] ? : ? 1965 (Age: 46) ??F ?Collect Date: ? 10/24/2011 ? Location: ? [facility] ? Receive Date: ? 10/27/2011 ? Provider: MARISEL RIOS GRAPHICS INTERN Copy to: ? Final Report SPECIMEN ADEQUACY ? Satisfactory for Evaluation - transformation zone component present GENERAL CATEGORIZATION ? Negative for Intraepithelial Lesion or Malignancy INTERPRETATION ? Reactive cellular changes associated with inflammation present (includes repair). Last Menstural Period: 10/21/11 Specimen/Source: ??Pap Test, Cervix/Endocervix, ThinPrep Imaging System with manual evaluation Document reviewed and electronically signed by: ? KIA MONROE MD ? Report ??Date: 11/01/2011 16:34 HPV with Pap Test ? Date Ordered: ? 11/01/2011 ? Status: ?? Signed Out ?Date Complete: ? 11/06/2011 ? By: ??System Interface ? Date Reported: ? 11/06/2011 ? Interpretation RESULT: Negative for HPV. No E6 or E7 mRNA is detected from HPV types 16,18,31,33,35, 39,45,51,52,56,58, 59,66, and 68 by loss prevention leader mediated amplification. Comments Document reviewed and electronically signed by: ? System Interface ? Report date: 11/06/2011 By the signature above, the attending physician certifies that he/she has personally conducted a gross and/or microscopic examination of the described specimens and rendered or confirmed the above diagnosis. End of Report MIKE HERNANDEZ 10/24/2011 10/27/2011 Marisel Rios NP PATHOLOGY ORDERABLES Final R esult MIKE HERNANDEZ [address] [place] [address] documented in this encounter Visit Diagnoses Not on filedocumented in this encounter
--- OUTSIDE RECORDS SUMMARY | 2024-04-11 12:41 | XMS_ITS | Encounter Summary ---
Author Organization [facility] Address [address] [place] [address] Care Team Providers Care Cyber Incident Responder Name Role Phone Emiliana Gallo APRN Primary Care Provider [phone] Nuha Cummings Primary Care Provider [phone] Encounter Details Date Type Department Care Team (Late st Contact Info) Description 02/18/2016 Results Only Imaging [facility] Radiology Results [address] [place], [place] [address] Emiliana Gallo APRN [address] [place] [address] Social History Tobacco Use Types [...] Procedure Name Priority Date/Time Associated Diagnosis Comments CT ABDOMEN (ONLY) W CONTRAST 02/18/2016 17:45 EDT documented in this encounter Results * CT ABDOMEN W CONTRAST (02/18/2016 17:45 EDT) Anatomical Region Laterality Modality Computed Tomogra phy 02/18/2016 17:3 3 EDT Narrative 02/18/2016 17:45 EDT ? EXAM: CAT SCAN/ABDOMEN WITH CONTRAST ?EX. D/ (6450) ? CLINICAL INFORMATION: ? K80.20 CHOLELITHIASIS ? INDICATION: K80.20 CHOLELITHIASIS. ? COMPARISON: None. ? TECHNIQUE: CT scan of the abdomen was performed with nonionic IV ? contrast. 100 mL of Omnipaque 350 was utilized. Oral contrast was ? administered. ? FINDINGS: ? Lung bases: Unremarkable. ? Liver: Unremarkable. No intrahepatic bile duct dilatation or focal ? hepatic lesion identified. ? Gallbladder: There are at least 2 stones within the gallbladder. No ? gallbladder wall thickening or pericholecystic inflammation is ? identified. ? Pancreas: Unremarkable. No pancreatic duct dilatation or focal ? pancreatic lesion identified. ? Spleen: Unremarkable. ? Adrenal glands: Unremarkable. ? Kidneys: There are 2 cysts measuring 15 mm within the left kidney. No ? left renal stone or hydronephrosis is identified. The right kidney ? has a normal appearance. ? Appendix: Unremarkable. ? Stomach and bowel: A gastric cavity and visualized portions of the ? small bowel and colon are unremarkable. ? Peritoneum: Unremarkable. No free intraperitoneal fluid or free air ? is identified. ? Lymph nodes: No pathologically enlarged lymph nodes identified. ? Vessels: Minimal abdominal aortic intimal calcification. No aneurysm ? identified. ? Skeleton: Degenerative spondylosis at L5-S1. No fracture, osteolytic ? or osteoblastic lesion identified. ? Abdominal wall: No abdominal wall hernia. ? IMPRESSION: ? 1. Cholelithiasis. ? 2. Left renal cyst. ? PAGE 1 ? Signed Report ? (CONTINUED) ? 3. Degenerative spondylosis at L4-L5. ? REPORT SIGNED IN OTHER VENDOR SYSTEM 02/18/2016 ?Reported By: Dk Cloud MD ? CC: ? Transcribed Date/Time: 02/18/2016 (9995) ? Woven Blind Loom Tender: ? Printed Date/Time: 06/09/2019 (1410) ? PAGE 2 ? Signed Report ? Procedure Note Dk Cloud MD - 06/09/2019 EXAM: CAT SCAN/ABDOMEN WITH CONTRAST EX. D/ (1630) CLINICAL INFORMATION: K80.20 CHOLELITHIASIS INDICATION: K80.20 CHOLELITHIASIS. COMPARISON: None. TECHNIQUE: CT scan of the abdomen was performed with nonionic IV contrast. 100 mL of Omnipaque 350 was utilized. Oral contrast was administered. FINDINGS: Lung bases: Unremarkable. Liver: Unremarkable. No intrahepatic bile duct dilatation or focal hepatic lesion identified. Gallbladder: There are at least 2 stones within the gallbladder. No gallbladder wall thickening or pericholecystic inflammation is identified. Pancreas: Unremarkable. No pancreatic duct dilatation or focal pancreatic lesion identified. Spleen: Unremarkable. Adrenal glands: Unremarkable. Kidneys: There are 2 cysts measuring 15 mm within the left kidney.No left renal stone or hydronephrosis is identified. The right kidney has a normal appearance. Appendix: Unremarkable. Stomach and bowel: A gastric cavity and visualized portions of the small bowel and colon are unremarkable. Peritoneum: Unremarkable. No free intraperitoneal fluid or free air is identified. Lymph nodes: No pathologically enlarged lymph nodes identified. Vessels: Minimal abdominal aortic intimal calcification. Noaneurysm identified. Skeleton: Degenerative spondylosis at L5-S1. No fracture,osteolytic or osteoblastic lesion identified. Abdominal wall: No abdominal wall hernia. IMPRESSION: 1. Cholelithiasis. 2. Left renal cyst. PAGE 1 Signed Report (CONTINUED) 3. Degenerative spondylosis at L4-L5. REPORT SIGNED IN OTHER VENDOR SYSTEM 02/18/2016 Reported By: Dk Clodu MD CC: Transcribed Date/Time: 02/18/2016 (0178) Woven Blind Loom Tender: Printed Date/Time: 06/09/2019 (0382) PAGE 2 Signed Report Emiliana Gallo APRN IM CT ORDERABLES Final Resul t documented in this encounter Visit Diagnoses Not on filedocumented in this encounter Additional Health Concerns Infection Onset Date Last Indicated Resolved Time COVID-19 09/05/2021 09/05/2021 09/25/2021 22:1 5 EDT documented as of this encounter Care Teams Cyber Incident Responder Relationship Specialty Start Date End Date Emiliana Gallo APRN [address] [place] [address] PCP - General 01/25/16 06/15/19 Nuha Cummings FNP [place] [place] [address] PCP - General 06/16/19 documented as of this encounter
--- OUTSIDE RECORDS SUMMARY | 2024-04-11 12:41 | XMS_ITS | Encounter Summary ---
Author Organization [facility] Address [address] [place] [address] Care Team Providers Care Electrician Outside Name Role Phone Emiliana Gallo APRN Primary Care Provider [phone] Encounter Details Date Type Department Care Team (Latest Contact Info) Description 12/17/2017 18:38 EDT - 12/17/2017 23:59 EDT Hospital Encounter [address] [address] Unknown, Provider, Discharge Disposition: Home or Self Care Social [...] on filedocumented in this encounter Care Teams Electrician Outside Relationship Specialty Start Date End Date Emiliana Gallo APRN [address] [place] [address] PCP - General 01/25/16 06/15/19 documented as of this encounter
--- OUTSIDE RECORDS SUMMARY | 2024-04-11 12:41 | XMS_ITS | Encounter Summary ---
Author Organization [facility] Address [address] [place] [address] Care Team Providers Care Etcher Aircraft Name Role Phone Nuha Cummings ANALYTICS LEADER Primary Care Provider [phone] Reason for Visit * Reason Onset Date Comments Other COVID-19 Call Ce nter Labs Only 11/13/2019 11/14/19 10:30am Encounter Details Date Type Department Care Team (Late st Contact Info) Description 11/13/2019 Telephone [facility] - [address] [address] Kylah Ornelas RN Other (COVID-19 Call Center); Labs Only (11/14/19 10:30am) Social History Tobacco Use Types Packs/Day Years [...] encounter Miscellaneous Notes * Telephone Encounter - Cristine Burnett - 11/13/2019 7393 EDT ..C-19 screening recommended by provider. Routed for testing ordering. Vehicle: [employer] Color: blue Cell #: [phone] *Patient will be in the same vehicle as Alexandra De Leon(Daughter) Spoke to patient and verbally gave instructions for Testing Facility. Patient is instructed to be there at 10:30am sharp on 11/14/19. * Telephone Encounter - Xin Aguiar PA-C - 11/13/2019 1344 EDT covid test ordered * Telephone Encounter - Kylah Ornelas RN - 11/13/2019 1337 EDT Patient called the COVID-19 call center looking for testing to get out of 14 day travel quarantine. Patient returned to [place] on 11/05/2019 (currently on day 8) and is currently asymptomatic. Patient contact number - [phone]. documented in this encounter Plan of Treatment Not on file documented as of this encounter Procedures Procedure Name Priority Date/Time Associated Diagnosis Comments COVID-19 TESTING Routine 11/14/2019 10:2 5 EDT Laboratory test documented in this encounter Results * COVID-19 TESTING (11/14/2019 10:25 EDT) Performing Lab [facility] 11/16/2019 9:04 EDT [facility] Comment: Please indicate the Triage Tier3 Test performed [place] [address] 11/16/19 0828: ??Amended Report ??PERFORMING LAB previously reported as: [facility] ??Please indicate the Triage Tier3 ?Test performed or referred by ??The ??[address] [place] [address] ??Reason: [] COVID-19 rt-PCR Result Not Detected Negative 11/16/2019 9:04 EDT [facility] Comment: 2019-novel Coronavirus (2019-nCoV) not detected by the qRT-PCR assay. Consider testing for other respiratory viruses or re-collecting for 2019-nCoV testing. Note: Optimum timing for peak viral levels during infections caused by 2019-nCoV have not been determined. Collection of multiple specimens from the same patient may be necessary to detect the virus. Limitations Positive results are indicative of active infection with SARS-CoV-2 but do not rule out bacterial infection or co-infection with other viruses. The agent detected may not be the definite cause of disease. In addition, detection of viral RNA may not indicate the presence of infectious virus or that SARS-CoV-2 is the causative agent for clinical symptoms. Negative results do not preclude SARS-CoV-2 infection and should not be used as the sole basis for patient management decisions. Negative results must be combined with clinical observations, patient history, and epidemiological information. False negative results may also occur if amplification inhibitors are present in the specimen or if inadequate numbers of organisms are present in the specimen. Optimum specimen types and timing for peak viral levels during infections caused by SARS-CoV-2 have not been fully determined. Collection of multiple specimens (types and time points) from the same patient may be necessary to detect the virus. The test was validated for use with upper respiratory specimens obtained via nasopharyngeal or oropharyngeal swabs in VTM, UTM, M4, M5, M6, saline, and MTM media. The performance of this test has not been established for other specimens. Specimens collected using other FDA recommended Specimen Collection Materials listed in the FDA COVID-19 [employer] communication (July 17, 2019) are processed with the caveat that they were not all validated for use with this test and the result must be interpreted in this context. Furthermore, a false negative results may occur if a specimen is improperly collected, transported or handled. If the virus mutates in the RT-PCR target region, SARS-CoV-2 may not be detected or may be detected less predictably. Inhibitors or other types of interference may produce a false negative result. An interference study evaluating the effect of common cold medications was not performed. This test is not FDA-cleared but its performance characteristics were established by our CLIA-certified, CAP-accredited, high complexity laboratory in accordance with CLIA regulations, [employer] [place] [employer] (CAP) guidelines (Jul 10, 2019), and FDA guidance (Jun 21, 2019). This test is only for use under the Food and Drug Administration's Emergency Use Authorization. Swab ENTIRE NASOPHARYNX / Unknown 11/14/2019 10:25 EDT 11/14/2019 11:52 EDT Narrative [facility] - 11/16/2019 9:04 EDT TIER 3 Xin Aguiar PA-C MICROBIOLOGY - GENERAL ORDERABLES Final Result [facility] [address] [place] [address] documented in this encounter Visit Diagnoses Diagnosis Laboratory test- Primary Laboratory examination, unspecified documented in this encounter Care Teams Etcher Aircraft Relationship Specialty Start Date End Date Nuha Cummings FNP [employer] [place] [address] PCP - General 06/16/19 documented as of this encounter
--- OUTSIDE RECORDS SUMMARY | 2024-04-11 12:41 | XMS_ITS | Encounter Summary ---
Author Organization [facility] Address [address] [place] [address] Care Team Providers Care Plastic Surgery Manager Name Role Phone Emiliana Gallo APRN Primary Care Provider [phone] Reason for Visit * Reason Onset Date Comments Follow-up 04/06/2016 Encounter Details Date Type Department Care Team (Late st Contact Info) Description 04/06/2016 Telephone [facility] General Surgery - [address] [address] Leeann Lynch MD [address] [address] Follow-up Social History Tobacco Use Types Packs/Day Years [...] encounter Miscellaneous Notes * Telephone Encounter - Leeann Lynch MD - 04/06/2016 2304 EST Pt feels sore. Tolerating po.no issues. documented in this encounter Plan of Treatment Not on file documented as of this encounter Visit Diagnoses Not on filedocumented in this encounter Care Teams Plastic Surgery Manager Relationship Specialty Start Date End Date Emiliana Gallo APRN [address] [place] [address] PCP - General 01/25/16 06/15/19 documented as of this encounter
--- OUTSIDE RECORDS SUMMARY | 2024-04-11 12:41 | XMS_ITS | Encounter Summary ---
Author Organization [facility] Address [address] [place] [address] Care Team Providers Care Cinder Pit Crane Operator Name Role Phone Nuha Cummings Primary Care Provider [phone] Encounter Details Date Type Department Care Team (Latest Contact Info) Description 10/17/2021 Lab Requisition [facility] Pathology & Laboratory Medicine - [facility] [address] [place] [address] Nuha Cummings FNP [address] [place] [address] Encounter for general adult medical examination without abnormal findings; Encounter for screening for malignant neoplasm of cervix; Encounter for screening for human papillomavirus (HPV) Social History Tobacco Use Types Packs/Day Years [...] Name Priority Date/Time Associated Diagnosis Comments PAP TEST Today 10/14/2021 10:30 EDT Encounter for general adult medical examination without abnormal findings Encounter for screening for malignant neoplasm of cervix Encounter for screening for human papillomavirus (HPV) HPV GENOTYPES 16 AND 18/45 Today 10/14/2021 10:30 EDT Encounter for general adult medical examination without abnormal findings Encounter for screening for malignant neoplasm of cervix Encounter for screening for human papillomavirus (HPV) HPV DNA DETECTION WITH GENOTYPING, PCR Today 10/14/2021 10:30 EDT Encounter for general adult medical examination without abnormal findings Encounter for screening for malignant neoplasm of cervix Encounter for screening for human papillomavirus (HPV) documented in this encounter Results * HPV GENOTYPES 16 AND 18/45 (10/14/2021 10:30 EDT) HPV High Risk type 16, PCR Negative Negative 10/27/2021 14:52 EDT [facility] HPV18/45 RNA (HPV18/45) Negative Negative 10/27/2021 14:52 EDT [facility] Papanicolaou smear specimen (specimen) CERVIX UTERI STRUCTURE / Unknown 10/14/2021 10:30 EDT 10/20/2021 9:53 EDT Nuha MIRANDAP MICROBIOLOGY - GENERAL ORDERAB LES Final Result [facility] [address] [place] [address] * (ABNORMAL) HUMAN PAPILLOMAVIRUS (HPV) DETECTION-HIGH RISK TYPES (10/14/2021 10:30 EDT) HPV other High Risk types, PCR Positive( A) Negative 10/27/2021 14:52 EDT [facility] Comment:E6 OR E7 mRNA from o ne or more types of HPV types 16,18,31,33,35,39,45,51,52,56,58,59,66, and 68 is detected by engineering lab technician mediated amplification. High and intermediate risk HPV types are associated with most squamous intraepithelial lesions and cervical cancers. Papanicolaou smear specimen (specimen) CERVIX UTERI STRUCTURE / Unknown 10/14/2021 10:30 EDT 10/20/2021 9:53 EDT us Nuha Cummings ONCOLOGY NURSE MICROBIOLOGY - GENERAL ORDERAB LES Final Result [facility] [address] [place] [address] * PAP TEST (10/14/2021 10:30 EDT) Specimens A. Cervix and/or Endocervix , ThinPrep Imaging System with Manual Evaluation 10/27/2021 14:52 T [facility] Specimen Adequacy Satisfactory for Evaluation - transformation zone component present 10/27/2021 14:52 [facility] General Categorization Negative for intraepithelial lesion or malignancy 10/27/2021 14:52 [facility] Descriptive Diagnosis Reactive cellular changes associated with inflammation present (includes repair). Shift in jo ann present suggestive of bacterial vaginosis. 10/27/2021 14:52 [facility] Attestation By the signature below, the attending physician certifies that they have personally conducted a gross and/or microscopic examination of the described specimens and rendered or confirmed the above diagnosis. 10/27/2021 14:52 [facility] at 1452 Clinical History SEE BELOW 10/28/19 14:52 [facility] HPV The result for the Human Papillomavirus (HPV) Detection-High Risk Types is Positive . E6 OR E7 mRNA from one or more types of HPV types 16,18,31,33,35,39 ,45,51,52,56,58,5 9,66, and 68 is detected by engineering lab technician mediated amplification. High and intermediate risk HPV types are associated with most squamous intraepithelial lesions and cervical cancers. Testing was performed on specimen [id number] and was resulted on 10/20/2021 1934 EDT by CALIXTO, LAB INSTRUMENT RESULTS IN 10/27/2021 14:52 [facility] Genotyping 16 & 18/45 The results for the HPV Genotypes 16 and 18/45 are Negative for the HPV16 RNA and Negative for the HPV18/45 RNA (HPV18/45). Testing was performed on specimen [id number] and was resulted on 10/27/2021 1450 EDT by CALIXTO, LAB INSTRUMENT RESULTS IN 10/27/2021 14:52 EDT [facility] Performing Lab [facility] 10/27/2021 14:52 EDT [facility] Scanned Images 10/27/2021 14:52 EDT [facility] Papanicolaou smear specimen (specimen) CERVIX UTERI STRUCTURE / Unknown 10/14/2021 10:30 EDT 10/17/2021 13:25 EDT Nuha MANZANO PATHOLOGY ORDERABLES Final Res ult [facility] [address] [place] [address] documented in this encounter Visit Diagnoses Diagnosis Encounter for general adult medical examination without abnormal findings Unspecified general medical examination Encounter for screening for malignant neoplasm of cervix Screening for malignant neoplasm of the cervix Encounter for screening for human papillomavirus (HPV) Special screening examination for human papillomavirus (HPV) documented in this encounter Care Teams Cinder Pit Crane Operator Relationship Specialty Start Date End Date Nuha Cummings FNP [facility] [place] [place] [address] PCP - General 06/16/19 documented as of this encounter
--- OUTSIDE RECORDS SUMMARY | 2024-04-11 12:41 | XMS_ITS | Clinical Summary ---
[place] [address] Care Team Providers Care Puddler Helper Name Role Phone Marisel Cox BRINEYARD SUPERVISOR Primary Care Provider + Social History Tobacco Use Types Packs/Day Years Used Date Smoking Tobacco: Never Assessed Sex and Gender Information Value Date Recorded Sex Assigned at Not on file Gender Identity Not on file Sexual Orientation Not on file Plan of Treatment Health Maintenance Due Date Last Done Comments CT Colonography 1966 Colonoscopy 1966 Colorectal Cancer Screening 1966 FIT DNA 1966 FIT 1966 Sigmoidoscopy (10 year) with FIT yearly 1966 Sigmoidoscopy 1965 HIV screen 1984 Hepatitis C Screening 1984 Hepatitis B vaccine (0-59 yrs) (1) 1985 Tetanus/Diphtheria/Pertussis Vaccines (1 - Tdap) 09/27 HPV test 1996 PAP Smear 1996 Breast Cancer Share Decision Needed 2006 Breast Cancer screening 2006 Zoster vaccine (1 of 2) 2016 Advance Directive 2021 Covid-19 Vaccine ( season) 2023 Influenza (Flu) vaccine (1 o f 1 - Influenza standard series) 12/23/2023 Care Teams Puddler Helper Relationship Specialty Start Date End Date Marisel Cox APRN PCP - General 04/01/13
--- OUTSIDE RECORDS SUMMARY | 2024-04-11 12:41 | XMS_ITS | Encounter Summary ---
Author Organization [facility] Address [address] [place] [address] Care Team Providers Care Leather Heel Breaster Name Role Phone Unavailable Primary Care Provider Unavailabl e Encounter Details Date Type Department Care Team (Late st Contact Info) Description 12/03/[address] [facility] [address] [place] [address] Marisel Rios, BONNY [address] [place] [id number] Social History Tobacco Use Types Packs/Day Years [...] Procedure Name Priority Date/Time Associated Diagnosis Comments CYTOPATHOLOGY Routine 12/03/2006 0:00 EDT documented in this encounter Results * CYTOPATHOLOGY (12/03/2006 0:00 EDT) Pathology Report: CYTOPATHOLOGY REPORT Reports generated via electronic interface contain original data; however they are lacking the format of the original report. Caution should be taken when reading/interpreti ng unformatted reports. Name: ? CIARA BRUMFIELD ? Accession #: ? [id number] : ? 1965 (Age: 41) ??F ?Collect Date: ? 12/03/2006 Location: ? [facility] ? Receive Date: ? 12/04/2006 Provider: ?MARISEL RIOS SENIOR PREMIUM AUDITOR Copy to: ? Specimen/Source: ?ThinPrep Pap Test, Cervix/Endocervix, processed on [employer] ThinPrep Imaging System, with manual evaluation Last Menstrual Period: ? 11/12/06 Other: ? HPVA - HPV testing requested if ASC-US on the current ThinPrep Pap test. ? SPECIMEN ADEQUACY ? Satisfactory for Evaluation - transformation zone component present GENERAL CATEGORIZATION ? Negative for Intraepithelial Lesion or Malignancy INTERPRETATION ? Fungal organisms present morphologically consistent with Kathi species. ? Document reviewed and electronically signed by: ? MARIA ESTHER Luciano(ASCP) ? Report Date: ??12/06/2006 16:11 End of Report [facility] HERNANDEZ 12/03/2006 12/04/2006 us Marisel Rios SENIOR PREMIUM AUDITOR PATHOLOGY ORDERABLES Final R esult MIKE HERNANDEZ [address] [place] [address] documented in this encounter Visit Diagnoses Not on filedocumented in this encounter
--- OUTSIDE RECORDS SUMMARY | 2024-04-11 12:41 | XMS_ITS | Encounter Summary ---
Author Organization [facility] Address [address] [place] [address] Care Team Providers Care Digital Community Manager Name Role Phone Nuha Cummings NATACHA Primary Care Provider [phone] Reason for Visit * Reason Comments Other 8th day of quarantin e COVID screening Encounter Details Date Type Department Care Team (Late st Contact Info) Description 11/14/2019 10:30 EDT Nurse Only [facility] - Mobile Testing Department [address] [place] [address] Nurse, [facility] Mobile Testing Screening for viral disease (Primary Dx) Social History Tobacco Use Types [...] Sign Reading Time Taken Comments Blood Pressure - - Pulse 74 11/14/2019 1023 EDT Temperature - - Respiratory Rate - - Oxygen Saturation 98% 11/14/2019 1023 EDT Inhaled Oxygen Concentration - - Weight - - Height - - Body Mass Index - - documented in this encounter Progress Notes * Alina Benz - 11/14/2019 1030 EDT Reason for visit - Covid 19 Screening HPI and Provider order- It is confirmed that patient qualifies for testing, C-19 testing has been recommended and ordered by provider Education - Patient offered Covid counseling and was provided with Covid home instructions. Vital Signs obtained and put in chart. Brief Assessment- Patient in no acute distress and tolerated testing well. Nurse performing swab/service today - Zenia Molina RN Provider on site today - Louisa PRIETO Diagnosis / code - Screening for other viral disease, Z11.59 Nurse Encounter charge [id number] documented in this encounter Plan of Treatment Not on file documented as of this encounter Visit Diagnoses Diagnosis Screening for viral disease- Primary Special screening examination for unspecified viral disease documented in this encounter Care Teams Digital Community Manager Relationship Specialty Start Date End Date Nuha Cummings F[place] [place] [address] PCP - General 06/16/19 documented as of this encounter
--- OUTSIDE RECORDS SUMMARY | 2024-04-11 12:41 | XMS_ITS | Encounter Summary ---
Author Organization [facility] Address [address] [place] [address] Care Team Providers Care Rapid Outsole Stitcher Name Role Phone Unavailable Primary Care Provider Unavailabl e Encounter Details Date Type Department Care Team (Late st Contact Info) Description 04/26/2009 Orders Only [facility] Services - [facility] [address] [place], [place] [id number] Marisel Rios, BONNY [address] [place] [phone] Social History Tobacco Use Types [...] Priority Date/Time Associated Diagnosis Comments CYTOPATHOLOGY Routine 04/26/2009 0:00 EST documented in this encounter Results * CYTOPATHOLOGY (04/26/2009 0:00 EST) Pathology Report: CYTOPATHOLOGY REPORT ? Reports generated via electronic interface contain original data; ? however they are lacking the format of the original report. ? Caution should be taken when reading/interpreti ng unformatted reports. ? Name: ? CIARA BRUMFIELD ? Accession #: ? [id number] ? : ? 1965 (Age: 43) ??F ?Collect Date: ? 04/26/2009 ? Location: ? [facility] ? Receive Date: ? 04/27/2009 ? Provider: ?MARISEL RIOS NP ? Copy to: ? Specimen/Source: ?Pap Test, Cervix/Endocervix, ThinPrep Imaging System ? with manual evaluation ? Last Menstrual Period: ? 12/14/09 ? Other: ? HPVA - HPV testing requested if ASC-US on the current ThinPrep Pap test. ? SPECIMEN ADEQUACY ? Satisfactory for Evaluation ? - transformation zone component present ? GENERAL CATEGORIZATION ? Negative for Intraepithelial Lesion or Malignancy ? Document reviewed and electronically signed by: ? Lynan Rey, CT(ASCP) ? Report Date: ??04/29/2009 11:16 ? End of Report ? MIKE HERNANDEZ 04/26/2009 04/27/2009 us Marisel Rios SCHEDULE ANALYST PATHOLOGY ORDERABLES Final R esult [facility] [address] [place] [address] documented in this encounter Visit Diagnoses Not on filedocumented in this encounter
--- OUTSIDE RECORDS SUMMARY | 2024-04-11 12:41 | XMS_ITS | Encounter Summary ---
Author Organization [facility] Address [address] [place] [address] Care Team Providers Care Special Services Supervisor Name Role Phone Nuha Cummings NATACHA Primary Care Provider [phone] Encounter Details Date Type Department Care Team (Latest Contact Info) Description 10/30/2022 Lab Requisition [facility] Pathology & Laboratory Medicine - [facility] [address] [place] [address] Jayla Chaves Encounter for screening for human papillomavirus (HPV); Encounter for screening for malignant neoplasm of cervix; Encounter for general adult medical examination without abnormal findings Social History Tobacco Use Types Packs/Day Years [...] Date/Time Associated Diagnosis Comments PAP TEST Today 10/23/2022 4:00 EDT Encounter for screening for human papillomavirus (HPV) Encounter for screening for malignant neoplasm of cervix Encounter for general adult medical examination without abnormal findings HPV DNA DETECTION WITH GENOTYPING, PCR Today 10/23/2022 4:00 EDT Encounter for screening for human papillomavirus (HPV) Encounter for screening for malignant neoplasm of cervix Encounter for general adult medical examination without abnormal findings documented in this encounter Results * HUMAN PAPILLOMAVIRUS (HPV) DETECTION-HIGH RISK TYPES (10/23/2022 4:00 EDT) HPV other High Risk types, PCR Negative Negative 11/09/2022 16:50 EDT [facility] Comment:No E6 or E7 mRNA is detected from HPV types 16,18,31,33,35,39,45,51,52,56,58,59,66, and 68 by athletic team physician mediated amplification. Papanicolaou smear specimen (specimen) CERVIX UTERI STRUCTURE / Unknown 10/23/2022 4:00 EDT 11/07/2022 15:05 EDT Jayla Chaves MICROBIOLOGY - GENERAL ORDERABLE S Final Result [facility] [address] [place] [id number] * PAP TEST (10/23/2022 4:00 EDT) Specimens A. Cervix and/or Endocervix , ThinPrep Imaging System with Manual Evaluation 11/09/2022 16:50 EDT [facility] Specimen Adequacy Satisfactory for Evaluation - transformation zone component present 11/09/2022 16:50 T [facility] General Categorization Negative for intraepithelial lesion or malignancy 11/09/2022 16:50 T [facility] Descriptive Diagnosis Shift in jo ann present suggestive of bacterial vaginosis. 11/09/2022 16:50 T [facility] Attestation . 11/09/2022 16:50 [facility] at 1650 Clinical History SEE BELOW 11/10/19 16:50 T [facility] HPV The result for the Human Papillomavirus (HPV) Detection-High Risk Types is Negative. No E6 or E7 mRNA is detected from HPV types 16,18,31,33,35,39 ,45,51,52,56,58,5 9,66, and 68 by athletic team physician mediated amplification.Mildred ting was performed on specimen [id number] and was resulted on 11/09/2022 1650 EDT by CALIXTO, LAB INSTRUMENT RESULTS IN 11/09/2022 16:50 EDT [facility] Performing Lab [facility] 11/09/2022 16:50 EDT [facility] Scanned Images 11/09/2022 16:50 EDT [facility] Papanicolaou smear specimen (specimen) CERVIX UTERI STRUCTURE / Unknown 10/23/2022 4:00 EDT 10/30/2022 13:11 EDT Jayla Chaves PATHOLOGY ORDERABLES Final Resul t [facility] [address] [place] [address] documented in this encounter Visit Diagnoses Diagnosis Encounter for screening for human papillomavirus (HPV) Special screening examination for human papillomavirus (HPV) Encounter for screening for malignant neoplasm of cervix Screening for malignant neoplasm of the cervix Encounter for general adult medical examination without abnormal findings Unspecified general medical examination documented in this encounter Care Teams Special Services Supervisor Relationship Specialty Start Date End Date Nuha Cummings [place] [place] [address] PCP - General 06/16/19 documented as of this encounter
--- OUTSIDE RECORDS SUMMARY | 2024-04-11 12:41 | XMS_ITS | Referral Summary ---
Author Organization [facility] Address [address] [place] [address] Care Team Providers Care Tape Editor Name Role Phone Nuha Cummings NATACHA Primary Care Provider [phone] Allergies Active Allergy Reactions Criticality Noted Date Comments Amoxicillin 02/24/2016 Penicillins 02/21/2016 Medications thyroid, Pork, (ARMOUR THYROID) 120 mg tablet Take 120 mg by mouth daily. Active methylphenidate (CONCERTA) 36 mg CR tablet Take 36 mg by mouth daily. Active Active Problems Problem Noted Date Diagnosed Date Calculus of gallbladder with chronic cholecystitis without obstruction 02/24/2016 Social History Tobacco Use Types Packs/Day Years [...] on file Sexual Orientation Not on file Last Filed Vital Signs Vital Sign Reading Time Taken Comments Blood Pressure 114/72 04/20/2016 1036 EST Pulse 74 11/14/2019 1023 EDT Temperature - - Respiratory Rate - - Oxygen Saturation 98% 11/14/2019 1023 EDT Inhaled Oxygen Concentration - - Weight 88 kg (194 lb) 02/24/2016 1524 EDT Height 154.9 cm (5' 1) 02/24/2016 1524 EDT Body Mass Index 36.66 02/24/2016 1524 EDT Plan of Treatment Not on file Procedures Procedure Name Priority Date/Time Associated Diagnosis Comments HEPATITIS C AB W REFLEX TO HCV RNA BY PCR Routine 02/06/2020 11:10 EDT from Last 3 Months or Most Recently Relevant to Health Maintenance Results * HEPATITIS C AB W REFLEX TO HCV RNA BY PCR (02/06/2020 11:10 EDT) Hep C Antibody Negative Negative 02/09/2020 11:35 EDT [facility] Blood VENOUS BLOOD / Unknown 02/06/2020 11:10 EDT 02/08/2020 17:03 EDT us Provider Outr Resulting Lab CHEMISTRY & BLOOD GA S ORDERABLES Final Result [facility] [address] [place] [address] from Last 3 Months or Most Recently Relevant to Health Maintenance Insurance [facility] Care Teams Tape Editor Relationship Specialty Start Date End Date Nuha Cummings FNP [address] [facility], [place] [id number] PCP - General 06/16/19
--- OUTSIDE RECORDS SUMMARY | 2024-04-11 12:41 | XMS_ITS | Clinical Summary ---
Author Organization [facility] Address [address] [place] [address] Care Team Providers Care In Home Sales Representative Name Role Phone Nuha Cummings NATACHA Primary Care Provider [phone] Allergies Active Allergy Reactions Criticality Noted Date Comments Amoxicillin 02/24/2016 Penicillins 02/21/2016 Medications thyroid, Pork, (ARMOUR THYROID) 120 mg tablet Take 120 mg by mouth daily. Active methylphenidate (CONCERTA) 36 mg CR tablet Take 36 mg by mouth daily. Active Active Problems Problem Noted Date Diagnosed Date Calculus of gallbladder with chronic cholecystitis without obstruction 02/24/2016 Surgical History Surgery Date Site/Laterality Comments SECTION KIDNEY STONE SURGERY Medical History Medical History Date Comments Arthritis Thyroid disease ADD (attention deficit disorder) Family History Medical History Relation Comments Cancer Father skin Arthritis Mother Depression Mother Relation Status Comments Father Mother Alive Social History Tobacco Use Types Packs/Day Years [...] on file Sexual Orientation Not on file Obstetrics History Last Filed Vital Signs Vital Sign Reading [...] 36.66 02/24/2016 1524 EDT Plan of Treatment Health Maintenance Due Date Last Done Comments Hepatitis B Vaccine (1 of 3 - 19+ 3-dose series) 09/27 COVID-19 Vaccine ( season) 2023 Hepatitis C Screen Completed 02/06/2020 Procedures Procedure Name Priority Date/Time Associated Diagnosis Comments HEPATITIS C AB W REFLEX TO HCV RNA BY PCR Routine 02/06/2020 11:10 EDT from Last 3 Months or Most Recently Relevant to Health Maintenance Results * HEPATITIS C AB W REFLEX TO HCV RNA BY PCR (02/06/2020 11:10 EDT) Hep C Antibody Negative Negative 02/09/2020 11:35 EDT [facility] Blood VENOUS BLOOD / Unknown 02/06/2020 11:10 EDT 02/08/2020 17:03 EDT us Provider Outr Resulting Lab CHEMISTRY & BLOOD GA S ORDERABLES Final Result [facility] [address] [place] [address] from Last 3 Months or Most Recently Relevant to Health Maintenance Insurance [facility] Care Teams In Home Sales Representative Relationship Specialty Start Date End Date Nuha Cummings F[place] [place] [address] PCP - General 06/16/19
--- OUTSIDE RECORDS SUMMARY | 2024-04-11 12:41 | XMS_ITS | Encounter Summary ---
Author Organization [facility] Address [address] [place] [address] Care Team Providers Care Contract Associate Name Role Phone Nuha Cummings NATACHA Primary Care Provider [phone] Encounter Details Date Type Department Care Team (Late st Contact Info) Description 09/05/2021 Lab Requisition [facility] - [place] [address] [place] [id number] Health, [facility] Employee Encounter for screening for COVID-19 Social History Tobacco Use Types Packs/Day Years [...] Procedure Name Priority Date/Time Associated Diagnosis Comments [id number] [facility] (TESTING ONLY) Today 09/05/2021 15:17 EDT Encounter for screening for COVID-19 COVID-19 TESTING Today 09/05/2021 15:1 7 EDT Encounter for screening for COVID-19 documented in this encounter Results * COVID-19 [facility] (TESTING ONLY) (09/05/2021 15:17 EDT) Swab 09/05/2021 15:1 7 EDT 09/05/2021 16:55 EDT [facility] Employee [facility] MICROBIOLOGY - GENERA L ORDERABLES Final Result Performing Organization Address City/[facility]/ZIP Co de Phone Number [facility] [address] [place] [address] * (ABNORMAL) COVID-19 TESTING (09/05/2021 15:17 EDT) COVID-19 rt-PCR Result Positive(AA) Negative 09/05/2021 17:[address] [facility] Performing Lab Cepheid GeneXpert [facility] Lab 09/05/2021 17:[address] [facility] Swab 09/05/2021 15:1 7 EDT 09/05/2021 16:55 EDT [facility] MICROBIOLOGY - GENERA L ORDERABLES Final Result Performing Organization Address City/[facility] Co de Phone Number [facility] [address] [place] [address] documented in this encounter Visit Diagnoses Diagnosis Encounter for screening for COVID-19 documented in this encounter Additional Health Concerns Infection Onset Date Last Indicated Resolved Time COVID-19 09/05/2021 09/05/2021 09/25/2021 22:1 5 EDT documented as of this encounter Care Teams Contract Associate Relationship Specialty Start Date End Date Nuha Cummings FNP [address] [place] [address] PCP - General 06/16/19 documented as of this encounter
--- OUTSIDE RECORDS SUMMARY | 2024-04-11 12:41 | XMS_ITS | Encounter Summary ---
Author Organization [facility] Address [address] [place] [address] Care Team Providers Care Mounting Machine Operator Name Role Phone Nuha Cummings NATACHA Primary Care Provider [phone] Encounter Details Date Type Department Care Team (Late st Contact Info) Description 02/07/2020 Lab Requisition [facility] Pathology & Laboratory Medicine - [facility] [address] [place] [address] Outr Resulting Lab, Provider Social History Tobacco [...] RNA BY PCR Routine 02/06/2020 11:10 EDT HEPATITIS B SURFACE ANTIBODY Routine 02/06/2020 11:10 EDT HEPATITIS B SURFACE ANTIGEN Routine 02/06/2020 11:10 EDT documented in this encounter Results * HEPATITIS B SURFACE ANTIBODY (02/06/2020 11:10 EDT) Hep B Surface Ab, Quantitative 161.5 See Note mIU/mL 02/09/2020 12:01 EDT [facility] Comment: Reference Range for Hep B Surface Ab, Quant: Positive: >= 10.0 mIU/mL Negative: ??< 10.0 mIU/mL Patient is presumed to be immune to infection with Hepatitis B Virus. Hep B Surface Ab, Qualitative Positive See Note 02/09/2020 12:01 EDT [facility] Comment: Reference Range for Hep B Surface Ab, Qual: Unvaccinated: ??Negative Vaccinated: ??Positive Blood VENOUS BLOOD / Unknown 02/06/2020 11:10 EDT 02/08/2020 17:02 EDT us Provider Outr Resulting Lab CHEMISTRY & BLOOD GA S ORDERABLES Final Result Performing Organization Address [facility] de Phone Number [facility] [address] [place] [address] * HEPATITIS B SURFACE ANTIGEN (02/06/2020 11:10 EDT) Hep B Surface Ag Negative Negative 02/09/2020 12:10 EDT [facility] Blood VENOUS BLOOD / Unknown 02/06/2020 11:10 EDT 02/08/2020 17:02 EDT us Provider Outr Resulting Lab CHEMISTRY & BLOOD GA S ORDERABLES Final Result Performing Organization Address [facility] Co de Phone Number [facility] [address] [place] [address] * HEPATITIS C AB W REFLEX TO HCV RNA BY PCR (02/06/2020 11:10 EDT) Hep C Antibody Negative Negative 02/09/2020 11:35 EDT [facility] Blood VENOUS BLOOD / Unknown 02/06/2020 11:10 EDT 02/08/2020 17:03 EDT us Provider Outr Resulting Lab CHEMISTRY & BLOOD GA S ORDERABLES Final Result Performing Organization Address City/[facility]/ZIP Co de Phone Number [facility] [address] [place] [address] documented in this encounter Visit Diagnoses Not on filedocumented in this encounter Additional Health Concerns Infection Onset Date Last Indicated Resolved Time COVID-19 09/05/2021 09/05/2021 09/25/2021 22:1 5 EDT documented as of this encounter Care Teams Mounting Machine Operator Relationship Specialty Start Date End Date Nuha [place] [address] PCP - General 06/16/19 documented as of this encounter
--- OUTSIDE RECORDS SUMMARY | 2024-04-11 12:41 | XMS_ITS | Encounter Summary ---
Author Organization [facility] Address [address] [place] [address] Care Team Providers Care Employee Relations Specialist Name Role Phone Unavailable Primary Care Provider Unavailabl e Encounter Details Date Type Department Care Team (Late st Contact Info) Description 08/28/2005 Results Only [facility] - [facility] conversion [address] [place] [address] Josue Arroyo ARNP [address] [place] [phone] Social History Tobacco Use Types Packs/Day Years [...] Priority Date/Time Associated Diagnosis Comments CYTOPATHOLOGY Routine 08/28/2005 0:00 EDT documented in this encounter Results * CYTOPATHOLOGY (08/28/2005 0:00 EDT) Pathology Report: CYTOPATHOLOGY REPORT Reports generated via electronic interface contain original data; however they are lacking the format of the original report. Caution should be taken when reading/interpreti ng unformatted reports. Name: ? CIARA BRUMFIELD ? Accession #: ? [id number] : ? 1965 (Age: 39) ??F ?Collect Date: ? 08/28/2005 Location: ? [facility] ? Receive Date: ? 08/30/2005 Provider: ?JOSUE GUADARRAMA Copy to: ? Specimen/Source: ?ThinPrep Pap Test, Vagina/Cervix/Endo cervix, processed on [place] ThinPrep Imaging System, with manual evaluation Last Menstrual Period: ? 2-3 wk Hormonal/Contracep tive Status: ? Yes: Synthroid Other: ? Additional clinical information: Benign pap hx ? SPECIMEN ADEQUACY ? Satisfactory for Evaluation - transformation zone component absent GENERAL CATEGORIZATION ? Negative for Intraepithelial Lesion or Malignancy ? Document reviewed and electronically signed by: ? NATIVIDAD Michaels(ASCP) ? Report Date: ??08/31/2005 10:23 End of Report MIKE HERNANDEZ 08/28/2005 08/30/2005 us Josue GUADARRAMA PATHOLOGY ORDERABLES Final Result MIKE HERNANDEZ [address] [place] [address] documented in this encounter Visit Diagnoses Not on filedocumented in this encounter
--- OUTSIDE RECORDS SUMMARY | 2024-04-11 12:41 | XMS_ITS | Encounter Summary ---
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 0.5 - 16.9 mIU/mL Post Menopausal: 15.9 - 54.0 mIU/mL Blood VENOUS BLOOD / Unknown 06/22/2020 15:45 EST 06/23/2020 16:49 EST us Provider Outr Resulting Lab CHEMISTRY & BLOOD GA S ORDERABLES Final Result [facility] [address] [place] [address] * FSH (06/22/2020 15:45 EST) FSH 66.6 See Note mIU/mL 06/23/2020 17:45 EST [facility] Blood VENOUS BLOOD / Unknown 06/22/2020 15:45 EST 06/23/2020 16:49 EST Narrative [facility] - 06/23/2020 17:45 EST NOTE: Female FSH Reference Ranges (>= 13 Menstruating): PHYSIOLOGICAL STATUS ? REFERENCE RANGE ? Follicular (-12 to -4 days): ?? 2.5 - 10.2 mIU/mL Midcycle (-3 to +2 days): ?3.4 - 33.4 mIU/mL Luteal (+4 to +12 days): ? 1.5 - 9.1 mIU/mL Postmenopausal: ?23.0 - 116.3 mIU/mL Reference Ranges for female patients <13 years old have not been established. 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, IGG (06/22/2020 15:45 EST) HSV Type 1 Ab, IgG Positive( A) Negative 06/25/2020 10:45 EST [facility] Comment:Indicates the presen ce of detectable IGG Antibody to HSV1 HSV Type 2 Ab, IgG Positive( A) Negative 06/25/2020 10:45 EST [facility] Comment:Indicates the presen ce of detectable IGG antibody to HSV 2 Blood VENOUS BLOOD / Unknown 06/22/2020 15:45 EST 06/23/2020 16:49 EST Provider Outr Resulting Lab IMMUNOLOGY AND SEROL OGY ORDERABLES Final Result Performing Organization Address [facility] Co de Phone Number [facility] [address] [place] [address] documented in this encounter Visit Diagnoses Not on filedocumented in this encounter Additional Health Concerns Infection Onset Date Last Indicated Resolved Time COVID-19 09/05/2021 09/05/2021 09/25/2021 22:1 5 EDT documented as of this encounter Care Teams Retail Sales Assistant Relationship Specialty Start Date End Date Nuha Cummings [place] [place] [address] PCP - General 06/16/19 documented as of this encounter
--- OUTSIDE RECORDS SUMMARY | 2024-04-11 12:41 | XMS_ITS | Encounter Summary ---
Author Organization [facility] Address [address] [place] [address] Care Team Providers Care Laborer Pole Crew Name Role Phone Nuha Cummings NATACHA Primary Care Provider [phone] Encounter Details Date Type Department Care Team (Latest Contact Info) Description 02/12/2020 Lab Requisition [facility] Pathology & Laboratory Medicine - [facility] [address] [place] [address] Jayla Fitzpatrick, POLE SHAVER HELPER [address] [place] [address] Encounter for general adult medical examination without [...] Date/Time Associated Diagnosis Comments PAP TEST Today 02/06/2020 10:45 EDT Encounter for general adult medical examination without abnormal findings Encounter for screening for malignant neoplasm of cervix Encounter for screening for human papillomavirus (HPV) HPV GENOTYPES 16 AND 18/45 Today 02/06/2020 10:45 EDT Encounter for general adult medical examination without abnormal findings Encounter for screening for malignant neoplasm of cervix Encounter for screening for human papillomavirus (HPV) HPV DNA DETECTION WITH GENOTYPING, PCR Today 02/06/2020 10:45 EDT Encounter for general adult medical examination without abnormal findings Encounter for screening for malignant neoplasm of cervix Encounter for screening for human papillomavirus (HPV) documented in this encounter Results * HPV GENOTYPES 16 AND 18/45 (02/06/2020 10:45 EDT) HPV High Risk type 16, PCR Negative Negative 03/15/2020 15:19 [facility] HPV18/45 RNA (HPV18/45) Negative Negative 03/15/2020 15:19 [facility] Papanicolaou smear specimen (specimen) CERVIX UTERI STRUCTURE / Unknown 02/06/2020 10:45 EDT 02/17/2020 10:21 EDT Jayla Palacios NP MICROBIOLOGY - GENERA L ORDERABLES Final Result [facility] [address] [place] [address] * (ABNORMAL) HUMAN PAPILLOMAVIRUS (HPV) DETECTION-HIGH RISK TYPES (02/06/2020 10:45 EDT) HPV other High Risk types, PCR Positive( A) Negative 03/15/2020 15:19 [facility] Comment:E6 OR E7 mRNA from o ne or more types of HPV types 16,18,31,33,35,39,45,51,52,56,58,59,66, and 68 is detected by consumer affairs director mediated amplification. High and intermediate risk HPV types are associated with most squamous intraepithelial lesions and cervical cancers. Papanicolaou smear specimen (specimen) CERVIX UTERI STRUCTURE / Unknown 02/06/2020 10:45 EDT 02/17/2020 10:21 EDT us Jayla Palacios NP MICROBIOLOGY - GENERA L ORDERABLES Final Result [facility] [address] [place] [address] * PAP TEST (02/06/2020 10:45 EDT) Specimens A. Cervix and/or Endocervix , ThinPrep Imaging System with Manual Evaluation 03/15/2020 15:19 [facility] Specimen Adequacy Satisfactory for Evaluation - transformation zone component present 03/15/2020 15:19 [facility] General Categorization Negative for intraepithelial lesion or malignancy 03/15/2020 15:19 [facility] Descriptive Diagnosis Shift in jo ann present suggestive of bacterial vaginosis. 03/15/2020 15:19 [facility] Attestation . 03/15/2020 15:19 [facility] at 1519 Clinical History See below 03/15/20 20 15:19 [facility] HPV The result for the Human Papillomavirus (HPV) Detection-High Risk Types is Positive . E6 OR E7 mRNA from one or more types of HPV types 16,18,31,33,35,39 ,45,51,52,56,58,5 9,66, and 68 is detected by consumer affairs director mediated amplification. High and intermediate risk HPV types are associated with most squamous intraepithelial lesions and cervical cancers. Testing was performed on specimen [id number] and was resulted on 03/15/2020 1501 EST by KIA BALTAZAR 03/15/2020 15:19 [facility] Genotyping 16 & 18/45 The results for the HPV Genotypes 16 and 18/45 are Negative for the HPV16 RNA and Negative for the HPV18/45 RNA (HPV18/45). Testing was performed on specimen [id number] and was resulted on 03/15/2020 1519 EST by BIBIANA HATCH 03/15/2020 15:19 [facility] Performing Lab [facility] 03/15/2020 15:19 [facility] Scanned Images 03/15/2020 15:19 EST [facility] Papanicolaou smear specimen (specimen) CERVIX UTERI STRUCTURE / Unknown 02/06/2020 10:45 EDT 02/12/2020 9:28 EDT us Jayla Palacios NP PATHOLOGY ORDERABLES Final Result [facility] [address] [place] [address] documented in this encounter Visit Diagnoses Diagnosis Encounter for general adult medical examination without abnormal findings Unspecified general medical examination Encounter for screening for malignant neoplasm of cervix Screening for malignant neoplasm of the cervix Encounter for screening for human papillomavirus (HPV) Special screening examination for human papillomavirus (HPV) documented in this encounter Additional Health Concerns Infection Onset Date Last Indicated Resolved Time COVID-19 09/05/2021 09/05/2021 09/25/2021 22:1 5 EDT documented as of this encounter Care Teams Laborer Pole Crew Relationship Specialty Start Date End Date Nuha Cummings [place] [address] PCP - General 06/16/19 documented as of this encounter
--- OUTSIDE RECORDS SUMMARY | 2024-04-11 12:41 | XMS_ITS | Data Portability ---
Author Organization [place] [facility] Address [address] [place] [address] Care Team Providers Care Wrapper Dipper Name Role Phone BAR CHAVES Primary Care Provider Assessment Encounter Date Assessment Date Assessment LastModified by Organization Details LastModified Time 02/11/2024 02/11/2024 This appointment was conducted via telephone. A total of 15 minutes was spent at this visit of which at least 50% was spent in direct patient contact. Consent was given to conduct this encounter using appropriate technology. [email or web address] Not available 02/11/2024 16:06:36 Plan of Treatment Reminders Order Date Submit Date Provider Last Modified By Organization Details Last Modified Time Details Appointments Follow Up 30 2024 09:30A M Bar Chaves Not available Not available Not available Lab TSH + free T4, serum - Nurse visit lab draw last week of October. [email or web address] [facility] (Registration ), [address] [place] [address] [place], [address], 11/27/2023 07:52:22 TSH + free T4, serum 2023 024 [facility] ([facility]), [address] [place] [address] [place], [address], 04/11/2024 11:50:33 CMP, serum or plasma 2023 024 [facility] ([facility]), [address] [place] [address] [place], [address], 04/11/2024 10:53:20 lipid panel, serum 2023 024 [facility] ([facility]), [address] [place] [address] , [place], [address], 04/11/2024 11:50:24 HbA1c (hemoglob in A1c), blood 2023 024 [facility] ([facility]), [address] [place] [address] , [place], [address], 04/11/2024 11:50:17 Referral physical therapist referral 2023 NORIADAM Rogel [facility], [address] , [place], [address], 11/05/2023 09:05:[address] referral - Referral for EMG testing - [address] [facility], [address] [place] [address] , [place], [address], 03/13/2024 15:01:49 general surgeon referral - Due for routine colonosco py (last screening 06-16-19, 5 year recall). 2023 024 [facility], [address] [place] [address] , [address], [place], [address], 04/09/2024 08:05:21 Procedures None recorded. Surgeries None recorded. Imaging None recorded. Medication Orders albuterol sulfate HFA 90 mcg/actua tion aerosol inhaler 2023 024 [facility], [address] [place], [address], 01/29/2024 10:09:16 benzonata te 200 mg capsule 2023 024 [facility], [address] [place], [address], 04/08/2024 14:12:30 prednison e 20 mg tablet 2023 [facility], [address] [place] [address], [address], 04/08/2024 14:12:22 lisdexamf etamine 20 mg capsule 2023 [facility], [address] [place], [address], 04/08/2024 14:49:11 Patient TargetsNo targets recorded. Patient Instructions Encounter Date Encounter Id Patient Instructions Last Modified By Organization Details Last Modified Time 04/08/2024 [id number] When You Want to Lose Weight: Care Instructions [email or web address] Not available 04/09/2024 07:26:26 Vyvanse prescribed (lisdexamfetamine [...] Not available 04/08/2024 15:02:28 Reason for Referral Physical Therapist Referral for Right thoracic outlet syndrome Referring Physician: [facility], Encounter Date: 10/23/2023 Neurologist Referral for Rig ht thoracic outlet syndrome Referral for EMG testing - Referring Physician: [facility], Encounter Date: 02/11/2024 General Surgeon Referral for Screening for malignant neoplasm of colon Due for routine colonoscopy (last screening 06-16-19, 5 year recall). Referring Physician: [facility], Encounter Date: 04/08/2024 Results Created Date Observation Date Name Description Value Unit Range Abnormal Flag Note LastModifiedBy Organization Detail LastModifiedTime 09/24/19 24 09/24/2023 TSH TSH 0.10 uIU/m L 0.36-[address] [facility] (Registration ) [address] [place] [address] [place], [address], 09/24/2023 19:18:12 09/24/19 24 09/24/2023 FREE T4 free T4 0.69 NG/dL 0.76-1 .[address] [facility] (Registration ) [address] [place] [address] [place], [address], 09/24/2023 19:18:12 11/19/19 24 11/19/2023 TSH TSH 0.17 uIU/m L 0.36-3 .[address] [facility] (Registration ) [address] [place] [address] [place], [address], 11/19/2023 16:41:16 11/19/19 24 11/19/2023 FREE T4 free T4 1.34 NG/dL 0.76-1 .46 normal Not Available [address] [place], [address] 11/19/2023 16:41:16 01/07/20 24 09/16/2020 brain KHANNA bilat eral No observ ation record ed. Not Available 01/06 18:19:03 01/07/20 24 10/18/2021 MAMMkim Gould No observ ation record ed. Not Available 01/06 18:19:55 01/07/20 24 12/24/2020 brain KHANNA No observ ation record ed. Not Available 01/06 18:19:56 01/07/20 24 11/01/2021 brain KHANNA No observ ation record ed. Not Available 01/06 18:19:56 01/07/20 24 05/02/2022 brain KHANNA No observ ation record ed. Not Available 01/06 18:19:57 01/07/20 24 10/19/2022 MAMMO kim No observ ation record ed. Not Available 01/06 18:19:59 01/07/20 24 06/12/2018 MAMMO kim No observ ation record ed. Not Available 01/06 18:20:00 01/07/20 24 09/06/2020 MAMMO kim No observ ation record ed. Not Available 01/06 18:20:03 01/07/20 24 10/19/2022 imagi ng/di agnos tic resul t No observ ation record ed. Not Available 01/06 18:20:10 Result Notes None recorded. Problems Name Problem SNOMED Code Status Onset Date Resolution Date Notes Provider Name and Address Organization Details Recorded Time Overweig 085475994 Active 2023 NATACHA WOLFE [address], [place], [address] , [facility] 4 14:20:53 Attentio n deficit hyperact ivity disorder , predomin antly inattent kristen type 87739288 Active 2013 [facility] 4 19:19:04 Hypothyr oidism 67467937 Active 1990 [facility] 4 19:20:27 Cholelit hiasis without obstruct ion 94276669 Active 2015 NATACHA WOLFE [address], [place], [address] , [facility] 4 13:07:18 Acute pharyngi tis 018696634 Completed 201605/11/2016 Problem Code: J02.9; Problem Code Type: ICD-10; Not Available [facility] 3 05:14:49 Atypical squamous cells of undeterm ined signific ance on vaginal Papanico laou smear 588697930 Active 2017 Negative HPV testing 10-23-22 , Postive HPV testing 10-14-21 NATACHA WOLFE [address], [place], [address] , [facility] 4 14:24:32 Acne 88038863 Completed 201809/25/2023 NATACHA WOLFE [address], [facility] [address] , [facility] 4 13:07:26 Obstruct kristen sleep apnea syndrome 88896738 Active 2018 [facility] 4 19:20:56 Adult health examinat ion Completed 201909/25/2023 NATACHA WOLFE [address], [place], [address] , [facility] 4 13:07:29 Body mass index 30+ - obesity 206234591 Active 2019 [facility] 4 19:19:18 History of polyp of colon 371457852 Active 2019 Tubular edenoma on 06/16/19 [facility] 4 19:20:16 High risk heterose xual behavior 98923811806 9101 Completed 201902/07/2020 02/06/20 20 - Comments only - Jayla Palacios STRUCTURES TECHNICIAN - Patient agreeabl e to STD testing today, as she recently had unprotec frida sex with a new partner. HIV, Hep B, Hep C, RPR ordered and drawn today. Endocerv ical swab for G+C performe d during pelvic exam. Problem Code: Z72.51; Problem Code Type: ICD-10; Not Available [facility] 3 05:14:50 Herpesvi renetta infectio n 53402593 Active 2019 [facility] 4 19:19:54 Screenin g for malignan t neoplasm of breast Completed 202009/25/2023 BAR CHAVES, NATACHA [address], [place], [address] , [facility] 4 13:07:15 Pain of left hip joint 75085103003 9100 Active 2020 [facility] 4 19:21:07 Menopaus e present 301749589 Active 2020 [facility] 4 19:20:45 Human papillom a virus infectio n 518755683 Active 2020 Negative testing 10-24-23 , Postive testing 10-14-21 NATACHA WOLFE [address], [place], [address] , [facility] 4 13:10:49 Breast composit ion 300994697 Active 2020 Not Available [facility] 3 05:14:51 Major depressi on, single episode 88167135 Active 2020 [facility] 4 19:20:38 Skin finding 316090478 Completed 202105/23/2021 05/10/19 22 - Comments only - Bar Chaves STRUCTURES TECHNICIAN - Vesicula r rash to left aspect of neck. Improvin g. Very suspicio us for shingles . Likely stressed induced. Unlikely related to COVID booster. Would expect full resoluti on in 2-3 weeks. Would consider Zoster vax in the future. Problem Code: R23.8; Problem Code Type: ICD-10; Not Available [facility] 3 05:14:51 Brachial plexus disorder 9413039 Active 2021 [facility] 4 19:19:22 Dyspnea 157259604 Active 2021 BAR CHAVES, STRUCTURES TECHNICIAN [address], [place], [address] , [facility] 4 13:11:09 History and physical examinat ion, administ rative Completed 202209/03/2023 Problem Code: Z02.89; Problem Code Type: ICD-10; Ulysses keller, [facility] 4 19:19:57 Gynecolo gic examinat ion Completed 201806/10/2021 Problem Code: Z01.419; Problem Code Type: ICD-10; Not Available [facility] 3 05:15:00 Abnormal weight gain 617423289 Completed 202010/29/2022 Problem Code: R63.5; Problem Code Type: ICD-10; Not Available [facility] 3 05:15:02 Non-supp urative otitis media 222799889 Completed 201906/17/2019 Problem Code: H65.92; Problem Code Type: ICD-10; Not Available [facility] 3 05:15:02 Spasm 41406669 Completed 201806/17/2019 Problem Code: M62.838; Problem Code Type: ICD-10; Not Available [facility] 3 05:15:03 Kidney stone 16045046 Completed 200801/25/2016 Not Available [facility] 3 05:15:03 Heart murmur 37779644 Completed 201806/17/2019 Problem Code: R01.1; Problem Code Type: ICD-10; Not Available [facility] 3 05:15:04 Pain of right shoulder joint 88384189720 033129 Completed 201806/17/2019 Problem Code: M25.511; Problem Code Type: ICD-10; Not Available [facility] 3 05:15:05 Hypocalc emia 0675461 Completed 201806/10/2021 Problem Code: E83.51; Problem Code Type: ICD-10; Not Available [facility] 3 05:15:05 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 476188709 Completed 201301/17/2023 Problem Code: 314.00; Problem Code Type: ICD-9; Not Available [facility] 3 05:15:05 Adult health examinat ion Completed 201506/22/2020 Problem Code: Z00.00; Problem Code Type: ICD-10; NATACHA WOLFE [address], [place], [address] [facility] 4 13:07:29 Herpesvi renetta infectio n 72491514 Completed 202110/29/2022 Problem Code: B00.9; Problem Code Type: ICD-10; Ulysses Charley keller, [facility] 4 19:19:54 Fatigue 27363230 Completed 201508/16/2018 Problem Code: R53.83; Problem Code Type: ICD-10; Not Available [facility] 3 05:15:07 Screenin g for malignan t neoplasm of colon Completed 201708/16/2018 Problem Code: Z12.11; Problem Code Type: ICD-10; Not Available [facility] 3 05:15:07 Hyperlip idemia screenin g Completed 201808/16/2018 Problem Code: Z13.220; Problem Code Type: ICD-10; Not Available [facility] 3 05:15:07 Low back pain 624374062 Completed 201406/22/2020 Problem Code: M54.5; Problem Code Type: ICD-10; Not Available [facility] 3 05:15:09 Screenin g for disorder Completed 201708/16/2018 Problem Code: Z13.89; Problem Code Type: ICD-10; Not Available [facility] 3 05:15:10 Noninfla mmatory disorder of the vagina 65022854 Completed 201906/22/2020 Problem Code: N89.8; Problem Code Type: ICD-10; Not Available [facility] 3 05:15:11 Venereal disease screenin g Completed 201708/16/2018 Problem Code: Z11.3; Problem Code Type: ICD-10; Not Available [facility] 3 05:15:12 Screenin g for cardiova scular system disease Completed 201808/16/2018 Problem Code: Z13.6; Problem Code Type: ICD-10; Not Available [facility] 3 05:15:12 Low back pain 376367081 Completed 202010/29/2022 Problem Code: M54.5; Problem Code Type: ICD-10; Not Available [facility] 3 05:15:12 Bronchit is 49115012 Completed 202209/03/2023 [facility] 19:19:28 Nasal congesti on 24434522 Completed 202209/03/2023 [facility] 19:20:50 Sore throat 571811026 Completed 202309/03/2023 [facility] 19:21:16 COVID-19 854432625 Completed 202309/03/2023 [facility] 19:19:41 Ingrowin g nail 270429806 Active 2022 NATACHA WOLFE [address], [place], [address] , [facility]. 4 13:06:57 Onychomy cosis due to dermatop hyte 173951737 [facility] 20[facility] 19:21:02 Upper respirat ory infectio n 21370450 Completed 202309/03/[address], [facility] [address] , [facility] 11:25:38 Right thoracic outlet syndrome 46790093478 585879 Active [address], [facility] [address] [place] [address] 13:50:19 Upper respirat ory infectio n 23751784 Active [address], [facility] [address] [place] [address] 11:25:37 Paresthe lucian of upper limb 76958260 Active [address], [facility] [address] [place] [address] 16:03:31 Problem Notes None recorded. Procedures Surgical History Date Name Laterality Status Provider Name and Address Organization Details Recorded Time 4 Nebulizer tx completed MANSOOR GARCIA Dr, [facility] [address] [place] [address] 05/31/2023 11:22:43 4 Nebulizer tx completed NATACHA SALMERON Dr, [facility] [address] [place] [address] 05/15/2023 10:20:29 Imaging Results Imaging Date Name Status LastModified by Organ [facility] Details LastModified Time 09/16/2020 US, breast, bilateral completed Information not available 01/07/2024 18:19:03 10/18/2021 MAMMO, screening completed Information not available 01/07/2024 18:19:55 12/24/2020 US, breast completed Information no t available 01/07/2024 18:19:56 11/01/2021 US, breast completed Information no t available 01/07/2024 18:19:56 05/02/2022 US, breast completed Information no t available 01/07/2024 18:19:57 10/19/2022 MAMMO, screening completed Information not available 01/07/2024 18:19:59 06/12/2018 MAMMO, screening completed Information not available 01/07/2024 18:20:00 09/06/2020 MAMMO, screening completed Information not available 01/07/2024 18:20:03 10/19/2022 imaging/diagno stic result completed Information not available 01/07/2024 18:20:10 Procedure Notes None recorded. Medical Equipment None Reported. Allergies Allergen ID Allergen Name Allergen Category Reaction Reaction Severity Criticality Documentation Date Start Date Code Code System Note Provider Name and Address Organization Details Recorded Time 25637 POLLEN EXTRACTS environme nt,medica tion Not available Not available Not available 09/03/20232006 43895 6 RxNorm [facility] 19:22:18 24571 Erythroci n medicatio n Not available Not available Not available 09/03/20232006 14782 3 RxNorm [facility] 19:22:30 03644 Medicinal product containin g penicilli n and acting as antibacte rial agent (product) medicatio n Not available Not available Not available 09/03/20232006 71501 05 SNOMED [facility] 4 19:22:47 Medications Name Sig Start Date Stop Date Status Note LastModified by Organization Details LastModified Time [place] Thyroid 60 mg tablet Take 1 by mouth daily 2013 active Not Available Not Available Not Avai lable levothyroxi ne 137 mcg tablet TAKE ONE TABLET BY MOUTH EVERY DAY DIRECTED FOR HYPOTHYRO IDISM active Not Available Not Available No t Available [place] Thyroid 90 mg tablet Take 1 tab by mouth daily 2013 active Not Available Not Available Not Avai lable doxycycline hyclate 100 mg capsule TAKE ONE CAPSULE BY MOUTH TWICE A DAY FOR 7 DAYS 05/15 completed Not Available Not Available Not Available [place] Thyroid 180 mg tablet Take 1 tablet [...] completed Not Available Not Available Not Available [place] Thyroid 120 mg tablet TAKE ONE TABLET [...] completed Not Available Not Available Not Available [place] Thyroid 15 mg tablet TAKE ONE TABLET [...] propionate 50 mcg/actuati on nasal spray,suspe nsion [place] 1 spray twice a day by intranasa [...] Available Vitals Date Recorded Body height Body mass index (BMI) Body weight Oxygen saturation Oxygen saturation in Arterial blood by Pulse oximetry Body temperature Heart rate Systolic blood pressure Diastolic blood pressure Provider Name and Address Organization Details Last Updated DateTime 4 154.94 cm 41.3 kg/m2 79074.2 4 g 98 % 98 % 97.7 [degF] 80 /min 127 mm[Hg] 76.99 mm[Hg] Deysi Toni, MA [facility] 4 13:54:57 Date Recorded Body height Body mass index (BMI) Body weight Body temperature Oxygen saturation Oxygen saturation in Arterial blood by Pulse oximetry Heart rate Respiratory rate Systolic blood pressure Diastolic blood pressure Provider Name and Address Organization Details Last Updated DateTime 4 154.94 cm 40.6 kg/m2 21295.3 6 g 97.2 [degF] 98 % 98 % 59 /min 17 /min 115 mm[Hg] 72 mm[Hg] Ruth Shipman MA [facility] 4 09:29:32 Date Recorded Body height Body weight Body mass index (BMI) Body temperature Oxygen saturation Oxygen saturation in Arterial blood by Pulse oximetry Heart rate Respiratory rate Systolic blood pressure Diastolic blood pressure Provider Name and Address Organization Details Last Updated DateTime 4 153.67 cm 21888.8 9 g 42.2 kg/m2 98.8 [degF] 97 % 97 % 89 /min 18 /min 120 mm[Hg] 72 mm[Hg] Gaby Driscoll [facility] 4 14:11:33 Social History Question Answer Notes LastModified by Organizat ion Details LastModified Time Tobacco Smoking Status Never Smoker JOSE Leos, [facility] 03/07/2023 17:48:34 Would You Say That, In General, Your Health Is Good [email or web address] Information not available 04/08/2024 Women Aged 18-50 - Would You Like To Become In The Next Year? (Female Patients Only) No [email or web address] Information not available 04/08/2024 How Often Does Anyone, Including Family, Physically Hurt You? Never Information not available 04/08/2024 How Often Does Anyone, Including Family, Insult Or Talk Down To You? Sometimes [email or web address] Information no t available 04/08/2024 How Often Does Anyone, Including Family, Threaten You With Harm? Never [email or web address] Information not available 04/08/2024 How Often Does Anyone, Including Family, Scream Or Curse At You? Rarely [email or web address] Information not available 04/08/2024 Within The Past 12 Months, You Worried That Your Food Would Run Out Before You Got Money To Buy More. Never True Information n ot available 04/08/2024 Within The Past 12 Months, The Food You Bought Just Didn't Last And You Didn't Have Money To Get More. Never True [email or web address] Information n ot available 04/08/2024 How Hard Is It For You To Pay For The Very Basics Like Food, Housing, Medical Care, And Heating? Would You Say It Is: Not Hard At All [email or web address] Information not available 04/08/2024 In The Past 12 Months, Has Lack Of Reliable Transportation Kept You From Medical Appointments, Meetings, Work Or From Getting Things Needed For Daily Living? No [email or web address] Information not available 04/08/2024 What Is Your Housing Situation Today? I Have Housing. [email or web address] Information not available 04/08/2024 How Often In The Past Year Have You Used Marijuana (including Smoking, Vaping, Dabbing, Or Edibles)? Never [email or web address] Information not available 04/08/2024 How Often In The Past Year Have You Used Prescription Medications That Were Not Prescribed To You? Never [email or web address] Information n ot available 04/08/2024 How Often In The Past Year Have You Taken Your Own Prescription Medication More Than The Way It Was Prescribed Or For Different Reasons Than Its Intended Purpose? Never Information no t available 04/08/2024 How Often In The Past Year Have You Used Other Drugs (for Example, Heroin, Cocaine, Meth, Salvia, Inhalants)? Never [email or web address] Information not available 04/08/2024 Have You Ever Used IV Drugs? No [email or web address] Information not available 04/08/2024 Date Of Most Recent SBINS 04/08/2024 Information not available 04/08/2024 What Was The Date Of Your Most Recent Tobacco Screening? 01/29/2024 [email or web address] Information not available 01/29/2024 Has Tobacco Cessation Counseling Been Provided? Yes [email or web address] Information not available 05/15/2023 On What Date Was Tobacco Cessation Counseling Provided? 01/29/2024 [email or web address] Information not available 01/29/2024 Do You Or Have You Ever Used Any Other Forms Of Tobacco Or Nicotine? No [email or web address] Information not available 05/15/2023 Sex: Female Functional Status None recorded. Mental Status None recorded. Family History Relationship Description Onset Age of this Age Resolved Age Notes LastModified by Organization Details LastModified Time Unspecified Relation Family history of breast cancer 1 gene mutation Relati ve: 'Aunt' ; [email or web address] Not available 03/02/2023 03:54:49 Notes:*Problem: Children: Andrew [...] preservative free, adsorbed 8 completed Not Available [facility] 03/02/2023 06:32:46 Influenza, split virus, trivalent, preservative 5 completed Not Available [facility] 03/02/2023 06:32:46 zoster recombinant 1 completed Not Available [facility] 03/02/2023 06:32:47 zoster recombinant 1 completed Not Available [facility] 03/02/2023 06:32:47 COVID-19, mRNA, LNP-S, PF, 100 mcg/0.5mL dose or 50 mcg/0.25mL dose 1 completed Not Available [facility] 03/02/2023 06:32:47 COVID-19, mRNA, LNP-S, PF, 100 mcg/0.5mL dose or 50 mcg/0.25mL dose 0 completed Not Available [facility] 03/02/2023 06:32:47 SARS-COV-2 (COVID-19) vaccine, UNSPECIFIED 1 completed Not Available [facility] 03/02/2023 06:32:47 influenza, unspecified formulation 0 completed Not Available [facility] 03/02/2023 06:32:47 influenza, unspecified formulation 2 completed Not Available [facility] 03/02/2023 06:32:47 influenza, unspecified formulation 3 completed Lyla Mistry RN null, [facility] 04/25/2023 12:43:24 Tdap 3 completed Lyla Mistry RN null, [facility] 04/25/2023 12:43:40 Pneumococcal conjugate PCV20, polysaccharide QIS606 conjugate, adjuvant, PF [address], [facility] [address], [facility] 04/09/2024 07:13:52 COVID-19, mRNA, LNP-S, PF, pj-sucrose, 30 mcg/0.3 mL [address], [facility] [address], [facility] 04/09/2024 07:13:52 influenza, unspecified formulation 4 completed Deysi Muñoz MA null, [facility] 04/08/2024 15:36:16 Past Encounters Encounter ID Performer Location Encounter Start Date Encounter Closed Date Diagnosis/Indication Diagnosis SNOMED-CT Code Diagnosis ICD10 Code [id number] RICKY JACOBS PA-C [address] [place] [address] 03/07/2023 17:43:25 03/07/2023 18:37:52 Bronchitis 38284812 J40 Nasal congestion 9244151 0 R09.81 [id number] RICKY JACOBS PA-C [address] [place] [address] 04/25/2023 09:14:14 04/25/2023 11:17:56 COVID-19 846543341 U07.1 Sore throat 337976783 J0 2.9 [id number] NATACHA SALMERON [address] [place] [address] 05/15/2023 09:07:54 05/15/2023 10:03:19 Cough 93632519 R05.9 Wheezing 70433102 R06.2 [id number] RICKY JACOBS PA-C [address] [place] [address] 05/31/2023 09:09:09 05/31/2023 11:44:43 Upper respiratory infection [id number] J06.9 [id number] BAR CHAVES, [facility] [address] [facility] [place] [address] 09/24/2023 15:08:41 09/24/2023 15:56:04 Hypothyroidism 83880887 E03.9 Obstructiv e sleep apnea syndrome 28292753 G47.33 Body mass index 40+ - severely obese 864182522 Z68.41 Herpesvirus infection 23 271671 B00.9 Attention deficit hyperactivity disorder, predominantly inattentive type 58592485 F90.0 [id number] BAR CHAVES, [facility] [address] [place] [address] 10/23/2023 13:44:16 10/23/2023 14:47:53 Right thoracic outlet syndrome [id number] 8062659 G54.0 [id number] Cindy Smith RN [facility] [address] [facility] [place] [address] 11/19/2023 10:35:47 11/19/2023 10:51:32 Hypothyroidism 64030572 E03.9 [id number] JUANI LAKHANI, [address] [place] [address] 01/29/2024 09:05:25 01/29/2024 10:13:33 Cough 80379114 R05.9 [id number] BAR CHAVES, [facility] [address] [place] [address] 02/11/2024 15:13:30 02/11/2024 16:23:52 Right thoracic outlet syndrome [id number] 0576789 G54.0 R20.2 Paresthesi a of upper limb 43644382 R20.2 [id number] NATACHA WOLFE [facility] [place] [address] 04/08/2024 13:48:38 04/08/2024 15:38:18 Active or passive immunization 220144738 Z23 Adult heal th examination 651736454 Z00.00 Screening for malignant neoplasm of colon 991761027 Z12.11 Hypothyroidism 37180341 E03.9 Obstructiv e sleep apnea syndrome 38988368 G47.33 Body mass index 40+ - severely obese 562433489 Z68.41 Herpesvirus infection 23 492838 B00.9 Attention deficit hyperactivity disorder, predominantly inattentive type 58496012 F90.0 Health Concerns Section Related Observation LastModified by Organization Detai ls LastModified Time None Recorded Concern Status LastModified by Organization Details LastModified Time None Recorded Advance Directives Directive None Recorded Payers Encounter Date Sequence Insurance Name Policy Number Policy Cruz Covered Member ID Cruz Member ID Guarantor Name 10/23/2023 2 [place] [employer] [place] Ciara Sexton [id number] Ciara Sexton 11/19/2023 2 [place] Ciara Sexton [id number] Ciara Sexton 11/19/2023 3 [employer] PLANS [facility] [employer] CARE - SELF FUNDED HEALTH PLANS (EPO) [id number] Ciara Sexton [id number] Ciara Sexton 01/29/2024 2 [place] Ciara Sexton [id number] Ciara Sexton 01/29/2024 3 [employer] [facility] [employer] CARE - SELF FUNDED HEALTH PLANS (EPO) [id number] Ciara Sexton [id number] Ciara Sexton 02/11/2024 2 [place] Ciara Sexton [id number] Ciara Sexton 02/11/2024 3 [employer] [facility] [employer] CARE - SELF FUNDED HEALTH PLANS (EPO) [id number] Ciara Sexton [id number] Ciara Sexton 04/08/2024 2 [place] Ciara Sexton [id number] Ciara Olmos Carlie 04/08/2024 3 HEALTH PLANS [facility] - SELF FUNDED HEALTH PLANS ([facility]) [id number] Ciara Olmos Carlie [id number] Ciara Sexton Notes Date Note Type Note Provider Name and Address Organization Details Recorded Time 10/23/2023 text/html Ciara presents to [facility] today to discuss treatment options for history of right thoracic outlet syndrome and increasing frequency of nerve pain to her right shoulder and arm. History of thoracic outlet syndrome, historically well treated with physical therapy. Last session was early 2022. Has been doing home exercises with minimal improvement. Requesting new referral to PT. Denies any recent injuries, change in work pattern.Medical history includes hypothyroidism, ADD, MISAEL (oral appliance). BAR CHAVES, NATACHA [address], [place], [address], [facility]. 10/24/2023 13:51:00 01/29/2024 text/html Patient with ons et of viral URI symptoms 2 weeks ago, with sore throat at onset, lasting 5 days. Had body aches, chills, and sweats, but only low grade temp. Took negative COVID test when symptoms first began.Then, cough began on day 5, and has continued the last 10 days. Cough can be sometimes dry, sometimes productive. Has noted some wheezing/chest tightness. No fevers in the last 10 days. Has used PRN inhaler since COVID + illness April 2023, as she feels she struggles to recover after any viral respiratory illness. Did not have an inhaler RF available, and is requesting this. Jovel been treating with behind the counter decongestants with minimal improvement in symptoms. NATACHA SALMERON [address], [place], [address], [facility]. 01/29/2024 10:18:39 02/11/2024 text/html Ciara presents vi a telephone to [facility] today to discuss further diagnostic options for right thoracic outlet syndrome and increasing frequency of nerve pain to her right shoulder and arm. Currently participating in occupational and physical therapy with only moderate success. (History of thoracic outlet syndrome, historically well treated with physical therapy). Denies any recent injuries or notable changes in work pattern.Medical history includes hypothyroidism, ADD, MISAEL (oral appliance). [address], [place], [address], [facility]. 02/11/2024 16:06:43 04/08/2024 text/html Ciara presents to [facility] today for her annual preventive wellness exam.Medical history includes hypothyroidism, ADD, MISAEL (oral appliance). Currently participating in PT for right thoracic outlet syndrome, tentatively scheduled for EMG testing next month.Employment - working as a nurse at [employer]. Household - self. Life stressors - mother in 2022 from complications associated with severe alzheimer's; Ciara was the primary caregiver up to the time of her . [address], [place], [address], [facility]. 04/09/2024 07:26:56 OBGyn Episode No OBEpisode recorded.
--- OUTSIDE RECORDS SUMMARY | 2024-04-11 12:41 | XMS_ITS | Encounter Summary ---
Author Organization [facility] Address [address] [place] [address] Care Team Providers Care Front Desk Monitor Name Role Phone Nuha Cummings NATACHA Primary Care Provider [phone] Encounter Details Date Type Department Care Team (Late st Contact Info) Description 11/14/2019 Lab Requisition [facility] Pathology & Laboratory Medicine - [facility] [address] [place] [address] Outr Resulting Lab, Provider Social History Tobacco [...] Procedure Name Priority Date/Time Associated Diagnosis Comments DO NOT ORDER STANDALONE - BROAD COVID TEST Today 11/14/2019 10:25 EDT COVID-19 TESTING Routine 11/14/2019 10:2 5 EDT documented in this encounter Results * DO NOT ORDER STANDALONE - BROAD COVID TEST (11/14/2019 10:25 EDT) COVID-19 rt-PCR Result NEGATIVE Negative 11/16/2019 1:27 EDT [facility] Comment: 2019-novel Coronavirus (2019-nCoV) not detected by [...] in accordance with CLIA regulations, College of [employer] Pathologists (CAP) guidelines (Jul 10, 2019), and FDA guidance (Jun 21, 2019). This test is only for use under the Food and Drug Administration's Emergency Use Authorization. Swab ENTIRE NASOPHARYNX / Unknown 11/14/2019 10:25 EDT 11/14/2019 21:29 EDT us Provider Outr Resulting Lab MICROBIOLOGY - GENER AL ORDERABLES Final Result [facility] [place] * COVID-19 TESTING (11/14/2019 10:25 EDT) COVID-19 rt-PCR Result NEGATIVE Negative 11/16/2019 2:37 EDT [facility] Comment: 2019-novel Coronavirus (2019-nCoV) not detected by [...] in accordance with CLIA regulations, College of [employer] Pathologists (CAP) guidelines (Jul 10, 2019), and FDA guidance (Jun 21, 2019). This test is only for use under the Food and Drug Administration's Emergency Use Authorization. Performing Lab [facility] 11/16/2019 2:37 EDT [facility] Swab 11/14/2019 10:2 5 EDT 11/14/2019 21:29 EDT us Provider Outr Resulting Lab MICROBIOLOGY - GENER AL ORDERABLES Final Result [facility] [address] [place] [address] [facility] [place] documented in this encounter Visit Diagnoses Not on filedocumented in this encounter Additional Health Concerns Infection Onset Date Last Indicated Resolved Time COVID-19 09/05/2021 09/05/2021 09/25/2021 22:1 5 EDT documented as of this encounter Care Teams Front Desk Monitor Relationship Specialty Start Date End Date Nuha Cummings [place] [address] [place] [address] PCP - General 06/16/19 documented as of this encounter
--- OUTSIDE RECORDS SUMMARY | 2024-04-11 12:41 | XMS_ITS | Encounter Summary ---
Author Organization [facility] Address [address] [place] [address] Care Team Providers Care Doctor Of Veterinary Medicine Name Role Phone Unavailable Primary Care Provider Unavailabl e Encounter Details Date Type Department Care Team (Late st Contact Info) Description 05/02/[address] [facility] Laboratory Services - [facility] [place] [address] [place], [place] [address] Marisel Cox, BONNY [address] [place] [address] Social History Tobacco Use Types [...] Priority Date/Time Associated Diagnosis Comments CYTOPATHOLOGY Routine 05/02/2010 0:00 EST documented in this encounter Results * CYTOPATHOLOGY (05/02/2010 0:00 EST) Pathology Report: CYTOPATHOLOGY REPORT ? Reports generated via electronic interface contain original data; ? however they are lacking the format of the original report. ? Caution should be taken when reading/interpreti ng unformatted reports. ? Name: ? CIARA BRUMFIELD ? Accession #: ? [id number] ? : ? 1965 (Age: 44) ??F ?Collect Date: ? 05/02/2010 ? Location: ? [facility] ? Receive Date: ? 05/04/2010 ? Provider: ROBERTS KATHERINEKI FIREBOAT OPERATOR ? Copy to: ? Final Report ? SPECIMEN ADEQUACY ? Satisfactory for Evaluation ? - transformation zone component present ? GENERAL CATEGORIZATION ? Negative for Intraepithelial Lesion or Malignancy ? Last Menstural Period: 04/28/10 TO 05/01/10 ? Specimen/Source: ??Pap Test, Cervix/Endocervix, ThinPrep Imaging System with ? manual evaluation ? Document reviewed and electronically signed by: ? Jarek Arturoler, CT(ASCP) ? Report ??Date: 05/09/2010 09:49 ? HPV with Pap Test ? Date Ordered: ? 05/09/2010 ? Status: ?? Signed Out ?Date Complete: ? 05/11/2010 ? By: ??System Interface ? Date Reported: ? 05/11/2010 ? Interpretation ? RESULT: Negative for HPV types 16, 18, 31, 33, 35, 39, 45, 51, 52, ? 56, 58, 59, and 68. ? Comments ? Document reviewed and electronically signed by: ? System Interface ? Report date: 05/11/2010 ? By the signature above, the attending physician certifies that he/she has ? personally conducted a gross and/or microscopic examination of the described ? specimens and rendered or confirmed the above diagnosis. ? End of Report ? MIKE HERNANDEZ 05/02/2010 05/04/2010 us Marisel Cox FIREBOAT OPERATOR PATHOLOGY ORDERABLES Final R esult Performing Organization Address City/State/[facility] Co de Phone Number [facility] [address] [place] [address] documented in this encounter Visit Diagnoses Not on filedocumented in this encounter
--- OUTSIDE RECORDS SUMMARY | 2024-04-11 12:41 | XMS_ITS | Encounter Summary ---
Author Organization [facility] Address [address] [place] [address] Care Team Providers Care Doughmaker Name Role Phone Emiliana Gallo APRN Primary Care Provider [phone] Encounter Details Date Type Department Care Team (Latest Contact Info) Description 12/17/2017 15:41 EDT - 12/17/2017 18:37 EDT Hospital Encounter [address] [address] Unknown, Provider, Discharge Disposition: Home or Self [...] Code Departure Means Destination Home or Self Correction documented in this encounter Plan of Treatment Not on file documented as of this encounter Visit Diagnoses Not on filedocumented in this encounter Care Teams Doughmaker Relationship Specialty Start Date End Date Emiliana Gallo APRN [address] [place] [address] PCP - General 01/25/16 06/15/19 documented as of this encounter
--- OUTSIDE RECORDS SUMMARY | 2024-04-11 12:41 | XMS_ITS | Encounter Summary ---
Author Organization [facility] Address [address] [place] [address] Care Team Providers Care Master Merchandiser Name Role Phone Emiliana Gallo KAMRON Primary Care Provider [phone] Nuha Cummings Primary Care Provider [phone] Encounter Details Date Type Department Care Team (Late st Contact Info) Description 04/05/2016 Results Only [facility] Radiology Results [address] [place] [address] Leeann Lynch MD [address] [place] [address] [address] [place] [address] Social History Tobacco Use Types [...] Procedure Name Priority Date/Time Associated Diagnosis Comments FL C-ARM CHOLANGIOGRAM 6 11:01 EST documented in this encounter Results * FL C-ARM CHOLANGIOGRAM (04/05/2016 11:01 EST) Anatomical Region Laterality Modality Body Other 04/05/2016 10:5 7 EST Narrative 04/05/2016 11:01 EST ? EXAM: RADIOLOGY/C-ARM CHOLANGIOGRAM ? EX. D/ (0932) ? CLINICAL INFORMATION: ? LAP JEFF ? INDICATION: ? LAP JEFF LAPAROSCOPIC CHOLECYSTECTOMY ? C-arm imaging was provided to Dr. Zev Tejada. ? REPORT SIGNED IN OTHER VENDOR SYSTEM 04/05/2016 ?Reported By: Kurt Negron MD ? CC: Leeann Lynch MD ? Transcribed Date/Time: 04/05/2016 (1101) ? Lathe Sander: ? Printed Date/Time: 06/09/2019 (1254) ? PAGE 1 ? Signed Report ? Procedure Note Kurt Negron MD - 06/09/2019 EXAM: RADIOLOGY/C-ARM CHOLANGIOGRAM EX. D/ (0932) CLINICAL INFORMATION: LAP JEFF INDICATION: LAP JEFF LAPAROSCOPIC CHOLECYSTECTOMY C-arm imaging was provided to Dr. Zev Tejada. REPORT SIGNED IN OTHER VENDOR SYSTEM 04/05/2016 Reported By: Kurt Negron MD CC: Leeann Lynch MD Transcribed Date/Time: 04/05/2016 (1101) Lathe Sander: Printed Date/Time: 06/09/2019 (5142) PAGE 1 Signed Report Leeann Lynch MD IMG FLUOROSCOPY ORDERA BLES Final Result documented in this encounter Visit Diagnoses Not on filedocumented in this encounter Additional Health Concerns Infection Onset Date Last Indicated Resolved Time COVID-19 09/05/2021 09/05/2021 09/25/2021 22:1 5 EDT documented as of this encounter Care Teams Master Merchandiser Relationship Specialty Start Date End Date Emiliana Gallo APRN [address] [place] [address] PCP - General 01/25/16 06/15/19 Nuha Cummings FNP [address] [place] [address] PCP - General 06/16/19 documented as of this encounter
--- OUTSIDE RECORDS SUMMARY | 2024-04-11 12:41 | XMS_ITS | Encounter Summary ---
Author Organization [facility] Address [address] [place] [address] Care Team Providers Care Barrel Filler Name Role Phone Nuha Cummings NATACHA Primary Care Provider [phone] Encounter Details Date Type Department Care Team (Late st Contact Info) Description 01/12/2021 Results Only [facility] - Main [address] [address] Unknown, Provider, Social History Tobacco Use Types Packs/Day Years [...] Date/Time Associated Diagnosis Comments COVID-19 TESTING Routine 01/12/2021 8:00 EDT documented in this encounter Results * COVID-19 TESTING (01/12/2021 8:00 EDT) COVID-19 rt-PCR Result Not Detected 01/12/2021 9:56 EDT [facility] Comment: This assay is designed to detect the RNA of SARS-CoV-2 using nucleic acid amplification. ??A Not Detected result does not preclude the possibility of SARS-CoV-2 infection since the adequacy of sample collection and/or low viral burden may result in the presence of viral nucleic acids below the analytical sensitivity of this test method. ??Test results should not be used as the sole basis for treatment or other management decisions and must be used with other clinical, epidemiological and laboratory data in making the diagnosis. This test has not been FDA cleared or approved. ??This test has been authorized by FDA under an EUA for use by authorized laboratories. ??This test has been authorized only for detection of nucleic acid from 2019-nCoV, not for any other viruses or pathogens. ??This test is only authorized for the duration of the declaration that circumstances exist justifying the authorization of emergency use of in vitro diagnostic tests for detection and / or diagnosis of 2019-nCoV under section 564(b) (1) of Act, 21 U.S.C 360bbb-3(b)(1) unless the authorization is terminated or revoked sooner. Performed on the [employer] GeneXpert Instrument at [facility] [address] 01/12/2021 8:00 EDT 01/12/2021 8:55 EDT us Provider Unknown MD MICROBIOLOGY - GENERAL ORDER MALCOM Final Result [facility] [address] [place] [address] documented in this encounter Visit Diagnoses Not on filedocumented in this encounter Care Teams Barrel Filler Relationship Specialty Start Date End Date Nuha Cummings [place] [address] PCP - General 06/16/19 documented as of this encounter
--- OUTSIDE RECORDS SUMMARY | 2024-04-11 12:41 | XMS_ITS | Encounter Summary ---
Author Organization [facility] Address [address] [place] [address] Care Team Providers Care Station Master Name Role Phone Nuha Cummings Primary Care Provider [phone] Encounter Details Date Type Department Care Team (Latest Contact Info) Description 06/18/2019 Lab Requisition [facility] Pathology & Laboratory Medicine - [facility] [address] [place] [address] Nuha Cummings FNP [address] [place] [address] Encounter for general adult medical [...] Date/Time Associated Diagnosis Comments PAP TEST Today 06/17/2019 11:45 EST Encounter for general adult medical examination without abnormal findings Encounter for screening for malignant neoplasm of cervix Encounter for screening for human papillomavirus (HPV) documented in this encounter Results * PAP TEST (06/17/2019 11:45 EST) Specimens A. Cervix and/or Endocervix, , ThinPrep Imaging System with Manual Evaluation 06/25/2019 16:35 [facility] Specimen Adequacy Satisfactory for Evaluation - transformation zone component present 06/25/2019 16:35 [facility] General Categorization Negative for intraepithelial lesion or malignancy 06/25/2019 16:35 [facility] Attestation By the signature below, the attending physician certifies that they have personally conducted a gross and/or microscopic examination of the described specimens and rendered or confirmed the above diagnosis. 06/25/2019 16:35 [facility] at 1635 Clinical History SEE ORDER COMMENTS 06/25/2019 16:35 [facility] Scanned Images 06/25/2019 16:35 [facility] Papanicolaou smear specimen (specimen) CERVIX UTERI STRUCTURE / Unknown 06/17/2019 11:45 EST 06/18/2019 9:53 EST Nuha MANZANO PATHOLOGY ORDERABLES Final Res ult [facility] [address] [place] [address] documented in this encounter Visit Diagnoses Diagnosis [...] documented as of this encounter Care Teams Station Master Relationship Specialty Start Date End Date Nuha Cummings [place] [address] [place] [address] PCP - General 06/16/19 documented as of this encounter
--- OUTSIDE RECORDS SUMMARY | 2024-04-11 12:41 | XMS_ITS | Encounter Summary ---
Author Organization [facility] Address [address] [place] [address] Care Team Providers Care Rough And Truing Machine Operator Name Role Phone Emiliana Aquino APRN Primary Care Provider Encounter Details Date Type Department Care Team (Late st Contact Info) Description 12/17/2017 Results Only [facility] [phone] Jonatan Cleveland MD [address] [place] [address] Social History Tobacco Use Types Packs/Day Years [...] Date/Time Associated Diagnosis Comments SURGICAL PATHOLOGY Routine 12/17/2017 23 :22 EDT documented in this encounter Results * SURGICAL PATHOLOGY (12/17/2017 23:22 EDT) Pathology Report: SURGICAL PATHOLOGY REPORT Reports generated via electronic interface contain original data; however they are lacking the format of the original report. Caution should be taken when reading/interpret ing unformatted reports. Name: ? CIARA LYNCH ? Accession #: ? [id number] ? : ? 1965 (Age: 52) ??F ? Collect Date: ? 12/17/2017 ? Location: ? [facility] ? Receive Date: ? 12/17/2017 ? Provider: JONATAN CLEVELAND MD Copy to: SREEKANTH AQUINO DIAPHRAGM BUILDER ? Final Pathologic Diagnosis: ENDOCERVIX, CURETTAGE: - ?Fragments of benign endocervical mucosa. See comment. - ? Fragments of benign superficial squamous epithelium. Comment: Deeper sections were examined. Document reviewed and electronically signed by: MOISES LAUGHLIN MD Report ??Date: 12/20/2017 14:13 By the signature above, the attending physician certifies that he/she has personally conducted a gross and/or microscopic examination of the described specimens and rendered or confirmed the above diagnosis. Specimen(s) Received: ECC Clinical History: 05/21/17 Pap ASCUS, +HPV, LMP: 11/26/17, neg test today Gross Description: ? Received in formalin labelled with proper patient identification (initials K, E) and ECC is an aggregate of pasty soliz-pink material (1.0 x 0.5 x 0.1 cm). Submitted in toto in block 1. IDA Moe (ASCP) 12/18/2017 8:26 AM End of Report [facility] 12/17/2017 23:2 2 EDT 12/17/2017 23:22 EDT us Jonatan Cleveland MD PATHOLOGY ORDERABLES Final Res ult [facility] [address] [place] [address] documented in this encounter Visit Diagnoses Not on filedocumented in this encounter Care Teams Rough And Truing Machine Operator Relationship Specialty Start Date End Date Emiliana Aquino APRN [address] [place] [address] PCP - General 01/25/16 06/15/19 documented as of this encounter
--- OUTSIDE RECORDS SUMMARY | 2024-04-11 12:41 | XMS_ITS | Encounter Summary ---
Author Organization [facility] Address [address] [place] [address] Care Team Providers Care Assistant Warehouse Manager Name Role Phone Nuha Cummings NATACHA Primary Care Provider [phone] Encounter Details Date Type Department Care Team (Late Contact Info) Description 06/16/2019 Lab Requisition [facility] Pathology & Laboratory Medicine - [facility] [address] [place] [address] Jesus Puente MD [address] [place] [id number] Encounter for screening for malignant neoplasm of colon Social History Tobacco Use Types Packs/Day Years [...] Priority Date/Time Associated Diagnosis Comments SURGICAL PATHOLOGY Today 06/16/2019 11 :05 EST Encounter for screening for malignant neoplasm of colon documented in this encounter Results * SURGICAL PATHOLOGY (06/16/2019 11:05 EST) Final Diagnosis A. COLON, TRANSVERSE POLYP, BIOPSIES: - Fragments of tubular adenoma. 06/17/2019 11:55 [facility] at 1155 Clinical History Colorectal screening 06/17/2019 11:55 [facility] Attestation By the signature below, the attending physician certifies that they have 1) personally conducted a gross and/or microscopic examination of the described specimen(s), and/or personally interpreted the results of laboratory testing of the described specimen(s), and 2) personally rendered or confirmed the above diagnosis. 06/17/2019 11:55 [facility] at 1155 Gross Description A. Received in formalin labelled with proper patient identification (initials K, E) and transverse colon polyp are 3 fragments of soliz tissue; each measuring 0.2 x 0.2 x 0.2 cm). The specimens are submitted entirely in A1. 06/16/2019 16:22 06/17/2019 11:55 [facility] Scanned Images 06/17/2019 11:55 [facility] Tissue ENTIRE TRANSVERSE COLON / Unknown 06/16/2019 11:05 EST 06/16/2019 16:18 EST us Jesus Puente MD PATHOLOGY ORDERABLES Fin al Result [facility] [address] [place] [address] documented in this encounter Visit Diagnoses Diagnosis Encounter for screening for malignant neoplasm of colon Special screening for malignant neoplasms, colon documented in this encounter Additional Health Concerns Infection Onset Date Last Indicated Resolved Time COVID-19 09/05/2021 09/05/2021 09/25/2021 22:1 5 EDT documented as of this encounter Care Teams Assistant Warehouse Manager Relationship Specialty Start Date End Date Nuha [place] [address] PCP - General 06/16/19 documented as of this encounter
--- OUTSIDE RECORDS SUMMARY | 2024-04-11 12:42 | XMS_ITS | Encounter Summary ---
[place] [address] Care Team Providers Care Musical Engineer Name Role Phone Unknown Primary Care Provider Unavailabl e Encounter Details Date Type Department Care Team (Late st Contact Info) Description 05/07/2012 [place] [address] Ginny Thomas MD Social History Tobacco Use Types Packs/Day Years Used Date Smoking Tobacco: Never Assessed Sex and Gender Information Value Date Recorded Sex Assigned at Not on file Gender Identity Not on file Sexual Orientation Not on file documented as of this encounter Plan of Treatment Pending Results Name Type Priority Associated Diagnoses Date /Time Film Library- Storage only Mammo Imaging Routine 05/07/2012 1:45 PM EST documented as of this encounter Visit Diagnoses Not on filedocumented in this encounter Care Teams Musical Engineer Relationship Specialty Start Date End Date Unknown None PCP - General 03/03/13 03/31/13 documented as of this encounter
--- OUTSIDE RECORDS SUMMARY | 2024-04-11 12:42 | XMS_ITS | Encounter Summary ---
[place] [address] Care Team Providers Care Library Services Coordinator Name Role Phone Unknown Primary Care Provider Unavailabl e Encounter Details Date Type Department Care Team (Late st Contact Info) Description 03/12/2013 [place] [address] Julisa Valencia MD [facility] [place] [address] Other (abnormal) findings on radiological examination of breast (Primary Dx) Social History Tobacco Use Types Packs/Day Years Used Date Smoking Tobacco: Never Assessed Sex and Gender Information Value Date Recorded Sex Assigned at Not on file Gender Identity Not on file Sexual Orientation Not on file documented as of this encounter Plan of Treatment Not on file documented as of this encounter Visit Diagnoses Diagnosis Other (abnormal) findings on radiological examination of breast- Primary documented in this encounter Care Teams Library Services Coordinator Relationship Specialty Start Date End Date Unknown None PCP - General 03/03/13 03/31/13 documented as of this encounter
--- OUTSIDE RECORDS SUMMARY | 2024-04-11 12:42 | XMS_ITS | Encounter Summary ---
[place] [address] Care Team Providers Care Production Scheduler Name Role Phone Marisel Cox APRN Primary Care Provider + Encounter Details Date Type Department Care Team (Latest Contact Info) Description 04/02/2013 10:54 AM EST - 04/02/2013 11:59 PM EST Hospital [place] [id number] CLINIC, DR MARY Chang, Shiraz Mijares MD [address] [place] [address] Other (abnormal) findings on radiological examination of breast Discharge Disposition: Home Social History Tobacco Use Types Packs/Day Years Used Date Smoking Tobacco: Never Assessed Sex and Gender Information Value Date Recorded Sex Assigned at Not on file Gender Identity Not on file Sexual Orientation Not on file documented as of this encounter Plan of Treatment Not on file documented as of this encounter Procedures Procedure Name Priority Date/Time Associated Diagnosis Comments MAMMO US CYST ASPIRATION Routine 04/02/2013 11:38 AM EST documented in this encounter Results * Mammo- US cyst aspiration (04/02/2013 11:38 AM EST) Anatomical Region Laterality Modality Breast N/A Mammography 04/02/2013 11:3 8 AM EST Narrative 04/03/2013 1:50 PM EST ULTRASOUND GUIDED CYST ASPIRATION OF THE LEFT BREAST ON 04/02/2013: ?? Informed consent was obtained. Using sterile technique and 1% Lidocaine used for local anesthesia, a skin incision was made and an aspiration was performed using Ultrasound guidance for image guidance. ?? Clinical indication: Left breast 8mm mass at 1200, 2cm from the nipple in the retroareolar region. ? 25-gauge Lidocaine needle. ? The cyst was aspirated to empty. ? There were no procedural complications. ?? Recommendation: Follow-up mammogram bilaterally in one year. ? I performed the procedure without a resident. ?? Home: Cell: Procedure Note Julisa Valencia MD - 04/03/2013 ULTRASOUND GUIDED CYST ASPIRATION OF THE LEFT BREAST ON 04/02/2013: Informed consent was obtained. Using sterile technique and 1% Lidocaineused for local anesthesia, a skin incision was made and an aspiration wasperformed using Ultrasound guidance for image guidance. Clinical indication: Left breast 8mm mass at 1200, 2cm from the nipple inthe retroareolar region. 25-gauge Lidocaine needle. The cyst was aspirated to empty. There were no procedural complications. Recommendation: Follow-up mammogram bilaterally in one year. I performed the procedure without a resident. Home: Cell: Julisa Valencia MD IMG MAMMO ORDERABLES documented in this encounter Visit Diagnoses Diagnosis Other (abnormal) findings on radiological examination of breast documented in this encounter Administered Medications Inactive Administered Medications - up to 3 most recent administrations Medication Order MAR Action Action Date Dose Rate Site lidocaine (XYLOCAINE) 10 mg/mL (1 %) injection 10 mg 10 mg, Intradermal, ONCE, 1 dose, On Sun04/02/13 at 1145, Routine Given 04/02/2013 11:45 AM EST 10 mg documented in this encounter Care Teams Production Scheduler Relationship Specialty Start Date End Date Marisel Cox APRN PCP - General 04/01/13 documented as of this encounter
--- OUTSIDE RECORDS SUMMARY | 2024-04-11 12:42 | XMS_ITS | Encounter Summary ---
Author Organization [facility] [place] [address] Care Team Providers Care Infrastructure Technician Name Role Phone Unknown Primary Care Provider Unavailabl e Encounter Details Date Type Department Care Team (Late st Contact Info) Description 03/10/2013 Orders [place] [address] Shiraz Chang MD [address] [place], [place] [id number] Social History Tobacco Use Types Packs/Day Years Used Date Smoking Tobacco: Never Assessed Sex and Gender Information Value Date Recorded Sex Assigned at Not on file Gender Identity Not on file Sexual Orientation Not on file documented as of this encounter Plan of Treatment Not on file documented as of this encounter Procedures Procedure Name Priority Date/Time Associated Diagnosis Comments REQUEST FOR 2ND READ MAMMO Routine 03/10/2013 1:55 PM EST documented in this encounter Results * Request for 2nd read Mammo (03/10/2013 1:55 PM EST) Anatomical Region Laterality Modality Other 03/10/2013 1:55 PM EST Narrative 03/13/2013 1:43 PM EST INTERPRETATION OF OUTSIDE MAMMOGRAMS (PERFORMED ON 02/28/13) FROM [facility] DATED 03/11/13: ?? DIAGNOSTIC IMAGING SUMMARY: ?? LEFT BREAST LESION 1: SUSPICIOUS (BIRADS Category 4A-low concern for malignancy). ?? Finding: Increasing oval mass, possibly complex cyst versus a solid mass. ?? Size: 8mm. ?? Location: Retroareolar region. ?? Recommendation: Aspiration/biopsy. ?? RIGHT BREAST: NEGATIVE (BIRADS Category 1). ?? NARRATIVE: ?? CLINICAL INDICATION: I have been asked to consult on this patient by Dr. Shiraz hCang because he believes a review of this study may change or alter the care of this patient. ?? TECHNIQUE: I have bilateral screening mammograms from 02/28/13 with comparisons of the Left breast from 05/07/12 and comparisons from 2008 through 2011 with ultrasound of the Left breast from 02/28/13 and 05/07/12. ?? FINDINGS: The breasts are heterogeneously dense which limits the mammographic sensitivity for the detection of malignancy. ?? The Right breast is normal and unchanged. ?? A well-defined 7mm low density nodule had been identified previously in 11/01 in the retroareolar Left CC view only. Ultrasound at that time showed an approximately 6-7mm oval, well-defined mass at 1200 in the retroareolar area possibly with a fatty hilum. Comparing comparative views between the two studies this has increased in size from 6mm in 11/01 to 8mm in 03/05 although it continues to have a very benign appearance. I think it is likely a small complex cyst or possibly an intramammary lymph node but in view of its change in size in that period I would recommend an attempted aspiration to go on to biopsy if appropriate. There are no other areas of concern within the Left breast. Procedure Note Julisa Valencia MD - 03/13/2013 INTERPRET[facility]SIDE [facility]GR[facility]28[facility]13[facility] DIAGNOSTIC IMAGING SUMMARY: LEFT BREAST LESION 1: SUSPICIOUS (BIRADS Category 4A-low concern for malignancy). Finding: Increasing oval mass, possibly complex cyst versus a solid mass. Size: 8mm. Location: Retroareolar region. Recommendation: Aspiration/biopsy. RIGHT BREAST: NEGATIVE (BIRADS Category 1). NARRATIVE: CLINICAL INDICATION: I have been asked to consult on this patient by Dr.John Chang because he believes a review of this study may change or alter thecare of this patient. TECHNIQUE: I have bilateral screening mammograms from 02/28/13 withcomparisons of the Left breast from 05/07/12 and comparisons from 2008 through 2011with ultrasound of the Left breast from 02/28/13 and 05/07/12. FINDINGS: The breasts are heterogeneously dense which limits themammographic sensitivity for the detection of malignancy. The Right breast is normal and unchanged. A well-defined 7mm low density nodule had been identified previously in11/01 in the retroareolar Left CC view only. Ultrasound at that time showed an approximately 6-7mm oval, well-defined mass at 1200 in the retroareolararea possibly with a fatty hilum. Comparing comparative views between the two studies this has increased in size from 6mm in 11/01 to 8mm in 03/05although it continues to have a very benign appearance. I think it is likely a small complex cyst or possibly an intramammary lymph node but in view of itschange in size in that period I would recommend an attempted aspiration to go onto biopsy if appropriate. There are no other areas of concern within the Left breast. Shiraz Chang MD IMG OUTSIDE INTERPRE TATION ORDERABLES documented in this encounter Visit Diagnoses Not on filedocumented in this encounter Care Teams Infrastructure Technician Relationship Specialty Start Date End Date Unknown None PCP - General 03/03/13 03/31/13 documented as of this encounter
--- OUTSIDE RECORDS SUMMARY | 2024-04-11 12:42 | XMS_ITS | Encounter Summary ---
Author Organization [place] [address] Care Team Providers Care Leather Whitener Name Role Phone Unknown Primary Care Provider Unavailabl e Encounter Details Date Type Department Care Team (Latest Contact Info) Description 03/10/2013 1:50 PM EST - 03/10/2013 11:59 PM EST Hospital Encounter XRay at [address] [place] [address] CLINIC, DR HERNANDEZ Discharge Disposition: Home Social History Tobacco Use [...] on filedocumented in this encounter Care Teams Leather Whitener Relationship Specialty Start Date End Date Unknown None PCP - General 03/03/13 03/31/13 documented as of this encounter
--- OUTSIDE RECORDS SUMMARY | 2024-04-11 12:42 | XMS_ITS | Encounter Summary ---
Author Organization [facility] [place] [address] Care Team Providers Care Front Desk Team Member Name Role Phone Unknown Primary Care Provider Unavailabl e Encounter Details Date Type Department Care Team (Late st Contact Info) Description 03/10/2013 External Results XRay at [address] [place] [address] Provider, Scanning Social History Tobacco Use Types Packs/Day Years Used Date Smoking Tobacco: Never Assessed Sex and Gender Information Value Date Recorded Sex Assigned at Not on file Gender Identity Not on file Sexual Orientation Not on file documented as of this encounter Plan of Treatment Not on file documented as of this encounter Procedures Procedure Name Priority Date/Time Associated Diagnosis Comments MAMMOGRAM SCAN Routine 02/28/2013 MAMMOGRAM SCAN Routine 05/07/2012 MAMMOGRAM SCAN Routine 11/07/2011 MAMMOGRAM SCAN Routine 11/03/2011 MAMMOGRAM SCAN Routine 06/06/2010 documented in this encounter Results * Scan Doc: Mammogram (02/28/2013) Anatomical Region Laterality Modality Other Scanning Provider MEDIA MGR SCAN EXT O RDR/RSLT * Scan Doc: Mammogram (05/07/2012) Anatomical Region Laterality Modality Other Scanning Provider MEDIA MGR SCAN EXT O RDR/RSLT * Scan Doc: Mammogram (11/07/2011) Anatomical Region Laterality Modality Other Scanning Provider MEDIA MGR SCAN EXT O RDR/RSLT * Scan Doc: Mammogram (11/03/2011) Anatomical Region Laterality Modality Other Scanning Provider MEDIA MGR SCAN EXT O RDR/RSLT * Scan Doc: Mammogram (06/06/2010) Anatomical Region Laterality Modality Other Scanning Provider MEDIA MGR SCAN EXT O RDR/RSLT documented in this encounter Visit Diagnoses Not on filedocumented in this encounter Care Teams Front Desk Team Member Relationship Specialty Start Date End Date Unknown None PCP - General 03/03/13 03/31/13 documented as of this encounter
== END 2024-04-11 12:38 | disposition home or self-care (01) ==
LOC: LBO 12:39
PROVIDERS: PCP Nurse Practitioner Family; Visit Provider Nurse Practitioner Family
DX: Z00.00 Encounter for general adult medical examination without abnormal findings (principal)
CPT/HCPCS: 36415; 80053; 80061; 83036; 84439; 84443

== ENCOUNTER 2024-10-23 15:09 | Outpatient (REF) | payer OTHER, SELFPAY | END 2024-10-23 15:10 | disposition home or self-care (01) | LOC: LBN 15:09 | PROVIDERS: PCP Nurse Practitioner Family; Visit Provider Obstetrics & Gynecology | DX: Z12.4 Encounter for screening for malignant neoplasm of cervix (principal) | CPT/HCPCS: 88142; 87624 ==

== ENCOUNTER 2025-01-19 02:55 | Outpatient (CLI) | payer OTHER, SELFPAY ==
--- NOTE | 2025-01-19 | DI.MAMMO_ITS ---
Exam(s) MAMMO SCREENING EXAM: MAMMO SCREENING CLINICAL HISTORY: SCREENING MAMMO Z12.31. TECHNIQUE: Bilateral full field digital CC and MLO mammographic images were obtained with 3D tomosynthesis and utilizing computer aided detection (CAD). COMPARISON: Prior mammograms were reviewed. Prior breast ultrasound examinations dating from 09/16/2020 to 10/19/2022 reviewed FINDINGS: LEFT BREAST: In the left breast the previously described 2 small nodular densities laterally are less evident. These were 2 adjacent small microcyst on prior ultrasound examinations. However, on the present study there is a well-defined noncalcified 6 by 4 mm nodule located 3 cm in from the nipple on the CC view approximately 6 are 12 o'clock position. There is also a slightly smaller noncalcified nodule on the CC view located 4 cm in from the nipple, medial of center.. There are no spiculated masses nor malignant-appearing microcalcification groups in the left breast and there is no new architectural distortion or skin thickening-retraction. All the nodules in the left breast remain unchanged from prior mammograms dating back to at least September 2021. RIGHT BREAST: There are total of 4 nodular densities seen on the CC view. Three of these are slightly medial of center with the largest measuring 9 by 8 mm and located 3 cm medial to the nipple on the CC view. There also 2 adjacent retroareolar region nodules located 2.5 cm in from the nipple on the CC view measuring 9 by 7 and 9 by 6 mm, this located approximately 3.5 cm in from the nipple. More laterally on the CC view there is a well-defined oval 6 x 5 mm nodule located 5 cm in from the nipple. On the MLO view there is a 11 by 6 mm nodular density located 4 cm in from the nipple below the center. There is a laterally located nodule on the MLO view measuring 5 x 5 mm located 5 cm in from the nipple. All of these nodules in the right breast remain unchanged from prior mammograms dating back to at least September 2021. IMPRESSION: 1. Stable non spiculated benign-appearing nodules in both breasts which are unchanged from mammograms dating back to September 2021. 2. However, given that a few of these nodules were solid on prior ultrasound examinations ( most recent being September 2022) I recommend repeat bilateral complete breast ultrasound at this time. This is mostly to revisit the solid nodules at the 4 o'clock position of the right breast as well as to ensure s tability of the previous cystic findings in left breast. I note that the last left breast ultrasound was in August 2020. BI-RADS Category 0 - Incomplete: Need additional imaging evaluation Breast Density - Category B - There are scattered areas of fibroglandular density. Breast density Category C or D implies that the patient has dense breast tissue. Dense breast tissue can make it harder to find cancer on a mammogram. Dense breast tissue is also associated with an increased risk of breast cancer. This information about the result of the mammogram report was provided to the patient to raise their awareness. Use this report when you speak with the patient about their risks for breast cancer, which includes their family history. At that time, you may recommend additional screening tests (Ultrasound or MRI) as these tests may add significant information. A negative radiographic report should not delay biopsy if a dominant or clinically suspicious mass is present. Up to ten percent of cancers are not identified on mammography. A negative report may reinforce clinical impression. Adenosis and dense breasts may obscure an underlying neoplasm. False positive reports average 6 to 10%. Patient will receive a letter notifying them of these results.
== END 2025-01-19 03:15 ==
LOC: DI 02:56
PROVIDERS: PCP Nurse Practitioner Family; Visit Provider Nurse Practitioner Family
DX: Z12.31 Encounter for screening mammogram for malignant neoplasm of breast (principal)
CPT/HCPCS: 77063; 77067